=== PATIENT | male | born 1960 | race Caucasian/White ===

== ENCOUNTER 2016-12-11 21:55 | Emergency (ER) | payer SELFPAY ==
[~2016-12-11] VITALS: Ht 177.8 cm; Wt 65.8 kg
[2016-12-11 22:05] VITALS: BP 143/86
== END 2016-12-11 23:47 | disposition left against medical advice (07) ==
LOC: ER 22:01
DX: N50.819 Testicular pain, unspecified (principal); N50.89 Other specified disorders of the male genital organs; Z53.21 Procedure and treatment not carried out due to patient leaving prior to being seen by health care provider

== ENCOUNTER 2016-12-12 08:45 | Emergency (ER) | payer SELFPAY ==
[~2016-12-12] VITALS: Ht 177.8 cm; Wt 65.8 kg
[2016-12-12 09:30] VITALS: BP 133/77
[2016-12-12] MEDS ORDERED: cefTRIAXone SODIUM 250 MG VL IM ONE (10:30)
[2016-12-12 10:53] LABS: Urine Bilirubin Negative (Negative); Urine Blood TRACE /uL (Negative); Urine Color Yellow (Yellow); Urine Glucose Normal (Normal); Urine Hyaline Cast FEW /lpf (0 - 2); Urine Ketone Negative (Negative); Urine Mucus FEW (None Seen); Urine Nitrite Negative (Negative); Urine RBC 7 /hpf (0 - 3)
== END 2016-12-12 12:38 | disposition home or self-care (01) ==
LOC: ER 08:45
DX: N45.2 Orchitis (principal); N39.0 Urinary tract infection, site not specified; F17.210 Nicotine dependence, cigarettes, uncomplicated
CPT/HCPCS: 76870; 81001; 96372; 99285; J0696

== ENCOUNTER 2020-03-30 16:39 | Emergency (ER) | payer MEDICAID ==
[~2020-03-30] VITALS: Ht 177.8 cm; Wt 68.0 kg
[2020-03-30 17:20] VITALS: BP 147/89
== END 2020-03-30 18:25 | disposition home or self-care (01) ==
LOC: ER 16:39
DX: S40.862A Insect bite (nonvenomous) of left upper arm, initial encounter (principal); S40.861A Insect bite (nonvenomous) of right upper arm, initial encounter; S80.862A Insect bite (nonvenomous), left lower leg, initial encounter; S80.861A Insect bite (nonvenomous), right lower leg, initial encounter; B86 Scabies; F17.210 Nicotine dependence, cigarettes, uncomplicated; W57.XXXA Bitten or stung by nonvenomous insect and other nonvenomous arthropods, initial encounter; Y93.89 Activity, other specified; Y92.89 Other specified places as the place of occurrence of the external cause; Y99.8 Other external cause status

== ENCOUNTER 2022-12-12 09:01 | Inpatient (IN) | payer MEDICAID ==
[~2022-12-12] VITALS: Ht 177.8 cm; Wt 70.8 kg
[2022-12-12] MEDS ORDERED: FUROSEMIDE 40 MG/4 ML VIAL IV ONE ×2 (09:30→11:45)
[2022-12-12 10:22] LABS: Basophils # (auto) 0.1 10 ^3/uL (0-0.2); Eosinophils # (auto) 0.1 10 ^3/uL (0-0.8); Eosinophils % (auto) 1.7 % (0.0-7.0); Hematocrit 44.6 % (41.0-53.0); Hemoglobin 15.1 g/dL (13.5-17.5); Lymphocytes # (auto) 1.3 10 ^3/uL (0.4-5.4); Lymphocytes % (auto) 22.1 % (10.0-50.0); Mean Corpuscular Hemoglobin 33.9 pg (28.0-32.0); Mean Corpuscular Hgb Conc. 33.9 g/dL (32.0-36.0); Mean Corpuscular Volume 100.3 fL (80.0-100.0); Monocytes # (auto) 0.6 10 ^3/uL (0-1.3); Monocytes % (auto) 9.3 % (0.0-12.0); Neutrophils # (auto) 3.9 10 ^3/uL (1.6-8.6); Neutrophils % (auto) 65.9 % (37.0-80.0); Red Blood Cells 4.45 10^6/uL (4.5-5.90); Red Cell Distribution Width 13.5 % (11.8-14.3)
[2022-12-12 10:38] LABS: Albumin 3.6 g/dL (3.4-5.0); Calcium 8.7 mg/dL (8.5-10.1); Magnesium 2.3 mg/dL (1.6-2.6); Potassium 3.9 mmol/L (3.5-5.1)
[2022-12-12 10:40] LABS: BUN/Creatinine Ratio 15.4 (10.0-20.0)
[2022-12-12 10:43] LABS: Bilirubin, Total 1.6 mg/dL (0.2-1.0)
[2022-12-12] MEDS ORDERED: MORPHINE SULFATE INJ 2 MG/ml SYRG IV PRN (11:45)
[2022-12-12] MEDS ORDERED: HYDROcodone-ACET 5/325MG TAB PO PRN (11:45)
[2022-12-12] MEDS ORDERED: ONDANSETRON HCL 4 MG/2 ML VIAL IV PRN (11:45)
[2022-12-12] MEDS ORDERED: METOPROLOL SUCCINATE XL 50 MG TAB PO SCH (11:45)
[2022-12-12] MEDS ORDERED: NITROGLYCERIN 0.4 MG SL TAB SL PRN (11:45)
[2022-12-12] MEDS ORDERED: SPIRONOLACTONE 25 MG TAB PO ONE (11:45)
[2022-12-12] MEDS ORDERED: ACETAMINOPHEN 500 MG TAB PO PRN (13:45)
[2022-12-12 14:39] VITALS: BP 149/95; PULSE 117; RESP 24; O2SAT 96
[2022-12-12 15:28] LABS: INR 1.19 (0.9-1.15); Prothrombin Time 12.4 sec (9.3-11.8)
[2022-12-12] MEDS ORDERED: hydrALAZINE HCL 20 MG/ML VL IV PRN (17:00)
[2022-12-12] MEDS ORDERED: FUROSEMIDE 20 MG/2 ML VIAL IV SCH (18:00)
[2022-12-12] MEDS ORDERED: POTASSIUM CHL 10 Meq TABLET PO SCH (22:00)
[2022-12-13] MEDS ORDERED: SPIRONOLACTONE 25 MG TAB PO SCH (10:00)
== END 2022-12-12 19:42 | disposition left against medical advice (07) | DRG 194 ==
LOC: ER 09:01 → TELE 11:58
PROVIDERS: ADMIT Internal Medicine; ATTEND Internal Medicine
DX: I11.0 Hypertensive heart disease with heart failure (principal); J96.00 Acute respiratory failure, unspecified whether with hypoxia or hypercapnia; B20 Human immunodeficiency virus [HIV] disease; I50.43 Acute on chronic combined systolic (congestive) and diastolic (congestive) heart failure; F17.210 Nicotine dependence, cigarettes, uncomplicated; E80.6 Other disorders of bilirubin metabolism; I87.8 Other specified disorders of veins; R73.9 Hyperglycemia, unspecified; I42.9 Cardiomyopathy, unspecified; K76.1 Chronic passive congestion of liver; M79.89 Other specified soft tissue disorders
CPT/HCPCS: 36415; 71046; 80053; 83605; 83735; 83880; 84132; 84484; 85025; 85610; 87040; 93005; 96374; G0378

== ENCOUNTER 2022-12-29 10:38 | Inpatient (IN) | payer MEDICAID ==
[2022-12-29] VITALS (8 sets, daily range): BP systolic 116–121; BP diastolic 75–93; PULSE 92–117; RESP 18–27; TEMP 97.6–98.1; O2SAT 94–100
[~2022-12-29] VITALS: Ht 170.2 cm; Wt 65.7 kg
[2022-12-29 11:08] LABS: Basophils # (auto) 0 10 ^3/uL (0-0.2); Basophils % (auto) 0.8 % (0.0-2.0); Eosinophils # (auto) 0.1 10 ^3/uL (0-0.8); Eosinophils % (auto) 1.2 % (0.0-7.0); Hematocrit 45.2 % (41.0-53.0); Hemoglobin 15.2 g/dL (13.5-17.5); Lymphocytes # (auto) 1.5 10 ^3/uL (0.4-5.4); Lymphocytes % (auto) 26.3 % (10.0-50.0); Mean Corpuscular Hemoglobin 33.9 pg (28.0-32.0); Mean Corpuscular Hgb Conc. 33.8 g/dL (32.0-36.0); Mean Corpuscular Volume 100.3 fL (80.0-100.0); Monocytes # (auto) 0.6 10 ^3/uL (0-1.3); Neutrophils # (auto) 3.4 10 ^3/uL (1.6-8.6); Neutrophils % (auto) 60.7 % (37.0-80.0); Nucleated Red Blood Cells % 0.1 %; Red Cell Distribution Width 13.9 % (11.8-14.3); White Blood Cell 5.5 10^3/uL (4.4-10.8)
[2022-12-29] MEDS ORDERED: FUROSEMIDE 40 MG/4 ML VIAL IV ONE (11:30)
[2022-12-29 11:47] LABS: Alanine Aminotransferase 27 U/L (7-40); Alkaline Phosphatase 182 U/L (46-116); Anion Gap 6.6 (5-15); Aspartate Aminotransferase 25 U/L (13-40); BUN/Creatinine Ratio 19.6 (10.0-20.0); Bilirubin, Total 2.2 mg/dL (0.2-1.0); Blood Urea Nitrogen 21 mg/dL (9-23); Calcium 9.2 mg/dL (8.7-10.4); Carbon Dioxide 24.4 mmol/L (20-30); Chloride 109 mmol/L (98-107); Glucose 118 mg/dL (74-106); Sodium 140 mmol/L (136-145); Total Protein 7.7 g/dL (5.7-8.2)
[2022-12-29] MEDS ORDERED: IOHEXOL 350 MG/ML 100ML IJ ONE ×2 (12:56→14:05)
[2022-12-29] MEDS ORDERED: BICT1TAB PO (13:16)
[2022-12-29 14:32] LABS: Triglycerides 124 mg/dL (< 150)
[2022-12-29 14:33] LABS: LDL Cholesterol 57 mg/dL (< 100)
[2022-12-29 14:34] LABS: Cholesterol 105 mg/dL (< 200); HDL Cholesterol 33 mg/dL (40-59)
[2022-12-29] MEDS ORDERED: HEPARIN SODIUM (PORCINE) 5000 UNITS/ML 1ML VIAL SC ONE (16:00)
[2022-12-29] MEDS ORDERED: HEPARIN DRIP/D5W 100UNITS/ML 250 ML IV SCH ×2 (16:00→16:45)
[2022-12-29] MEDS ORDERED: HEPARIN SODIUM (PORCINE) 5000 UNITS/ML 1ML VIAL IV ONE (17:00)
[2022-12-29 17:19] LABS: INR 1.17 (0.9-1.15); Prothrombin Time 12.2 sec (9.3-11.8)
[2022-12-29 18:10] LABS: Urine Bacteria NONE SEEN /hpf (None Seen); Urine Blood Negative /uL (Negative); Urine Clarity Clear (Clear); Urine Color Straw (Yellow); Urine Protein, UAD Negative (Negative); Urine Specific Gravity 1.011 (1.001-1.035); Urine Urobilinogen Normal (Negative); Urine WBC <1 /hpf (0 - 3)
[2022-12-29] MEDS: ALBUTEROL SULF 2.5 MG/0.5ML(0.5%) NEB SOLN NEB PRN (23:40)
[2022-12-30] VITALS (12 sets, daily range): BP systolic 114–132; BP diastolic 84–93; PULSE 59–116; RESP 15–22; TEMP 97.3–98; O2SAT 92–98
[2022-12-30 02:41] LABS: INR 1.26 (0.9-1.15)
[2022-12-30 06:48] LABS: Basophils # (auto) 0.1 10 ^3/uL (0-0.2); Basophils % (auto) 2.5 % (0.0-2.0); Eosinophils # (auto) 0.1 10 ^3/uL (0-0.8); Eosinophils % (auto) 1.4 % (0.0-7.0); Hematocrit 44.4 % (41.0-53.0); Hemoglobin 14.9 g/dL (13.5-17.5); Lymphocytes # (auto) 1.2 10 ^3/uL (0.4-5.4); Lymphocytes % (auto) 21.1 % (10.0-50.0); Mean Corpuscular Hemoglobin 33.8 pg (28.0-32.0); Mean Corpuscular Hgb Conc. 33.6 g/dL (32.0-36.0); Mean Corpuscular Volume 100.8 fL (80.0-100.0); Monocytes # (auto) 0.6 10 ^3/uL (0-1.3); Monocytes % (auto) 11.1 % (0.0-12.0); Neutrophils # (auto) 3.6 10 ^3/uL (1.6-8.6); Neutrophils % (auto) 63.9 % (37.0-80.0); Nucleated Red Blood Cells % 0.2 %; Red Blood Cells 4.41 10^6/uL (4.5-5.90); Red Cell Distribution Width 13.6 % (11.8-14.3); White Blood Cell 5.6 10^3/uL (4.4-10.8)
[2022-12-30 07:03] LABS: Alanine Aminotransferase 19 U/L (7-40); Albumin 3.7 g/dL (3.2-4.8); Alkaline Phosphatase 154 U/L (46-116); Aspartate Aminotransferase 23 U/L (13-40); BUN/Creatinine Ratio 14.7 (10.0-20.0); Bilirubin, Total 2.4 mg/dL (0.2-1.0); Blood Urea Nitrogen 17 mg/dL (9-23); Calcium 9.2 mg/dL (8.7-10.4); Chloride 104 mmol/L (98-107); Glucose 116 mg/dL (74-106); Potassium 3.7 mmol/L (3.5-5.1); Sodium 139 mmol/L (136-145); Total Protein 7.3 g/dL (5.7-8.2)
[2022-12-30] MEDS ORDERED: ENOXAPARIN SOD 40 MG/0.4 ML SYRINGE SC SCH (10:00)
[2022-12-30] MEDS: HEPARIN DRIP/D5W 100UNITS/ML 250 ML IV SCH (11:15)
[2022-12-30] MEDS: ACETAMINOPHEN 325 MG TAB PO PRN (21:32)
[2022-12-30] MEDS: ALBUTEROL SULF 2.5 MG/0.5ML(0.5%) NEB SOLN NEB PRN (22:22)
[2022-12-31] VITALS (10 sets, daily range): BP systolic 96–120; BP diastolic 62–89; PULSE 81–114; RESP 15–20; TEMP 97.8–98.4; O2SAT 94–98
[2022-12-31 00:56] LABS: INR 1.25 (0.9-1.15); Prothrombin Time 12.9 sec (9.3-11.8)
[2022-12-31] MEDS ORDERED: MELATONIN 5 MG TAB PO ONE (02:00)
[2022-12-31] MEDS: HEPARIN DRIP/D5W 100UNITS/ML 250 ML IV SCH ×2 (03:10→22:57)
[2022-12-31 06:55] LABS: INR 1.15 (0.9-1.15)
[2022-12-31] MEDS ORDERED: HEPARIN DRIP/D5W 100UNITS/ML 250 ML IV SCH ×2 (08:45→16:30)
[2022-12-31] MEDS ORDERED: METOPROLOL SUCCINATE XL 50 MG TAB PO SCH (10:15)
[2022-12-31] MEDS: FUROSEMIDE 40 MG/4 ML VIAL IV SCH ×2 (10:37→17:50)
[2022-12-31] MEDS ORDERED: APIX5TAB PO ×2 (11:57)
[2022-12-31] MEDS ORDERED: SACU1TAB PO (11:57)
[2022-12-31] MEDS ORDERED: LORazepam 2MG/ML-1ML VIAL IV ONE (16:15)
[2022-12-31 16:51] LABS: Basophils # (auto) 0 10 ^3/uL (0-0.2); Basophils % (auto) 0.7 % (0.0-2.0); Eosinophils # (auto) 0.1 10 ^3/uL (0-0.8); Eosinophils % (auto) 1.2 % (0.0-7.0); Hematocrit 44.7 % (41.0-53.0); Hemoglobin 15.1 g/dL (13.5-17.5); Lymphocytes % (auto) 20.1 % (10.0-50.0); Mean Corpuscular Hemoglobin 33.8 pg (28.0-32.0); Mean Corpuscular Hgb Conc. 33.7 g/dL (32.0-36.0); Mean Corpuscular Volume 100.3 fL (80.0-100.0); Monocytes # (auto) 0.5 10 ^3/uL (0-1.3); Neutrophils # (auto) 3.5 10 ^3/uL (1.6-8.6); Nucleated Red Blood Cells % 0.1 %; Red Blood Cells 4.45 10^6/uL (4.5-5.90); Red Cell Distribution Width 13.9 % (11.8-14.3); White Blood Cell 5.2 10^3/uL (4.4-10.8)
[2022-12-31 17:09] LABS: INR 1.21 (0.9-1.15); Partial Thromboplastin Time 27.5 SEC (24.5-34.5); Prothrombin Time 12.5 sec (9.3-11.8)
[2022-12-31 21:12] LABS: INR 1.23 (0.9-1.15); Partial Thromboplastin Time 33.9 SEC (24.5-34.5); Prothrombin Time 12.7 sec (9.3-11.8)
[2022-12-31] MEDS: SACUBITRIL-VALSARTAN 24mg/26mg TAB PO SCH (21:56)
[2022-12-31] MEDS: ATORVASTATIN 20 MG TAB PO SCH (21:56)
[2022-12-31] MEDS: MELATONIN 5 MG TAB PO SCH (22:00)
[2022-12-31] MEDS ORDERED: APIXABAN 5 MG TAB PO SCH (22:00)
[2022-12-31] MEDS ORDERED: HEPARIN SODIUM (PORCINE) 5000 UNITS/ML 1ML VIAL IV SCH (22:45)
[2023-01-01] VITALS (23 sets, daily range): BP systolic 88–114; BP diastolic 57–80; PULSE 76–106; RESP 12–20; TEMP 97.1–98.7; O2SAT 87–100
[2023-01-01 03:41] LABS: INR 1.27 (0.9-1.15); Prothrombin Time 13.1 sec (9.3-11.8)
[2023-01-01 03:47] LABS: Partial Thromboplastin Time 128.9 SEC (24.5-34.5)
[2023-01-01] MEDS ORDERED: HEPARIN DRIP/D5W 100UNITS/ML 250 ML IV SCH (04:46)
[2023-01-01] MEDS: HEPARIN DRIP/D5W 100UNITS/ML 250 ML IV SCH ×3 (04:46→20:25)
[2023-01-01] MEDS: FUROSEMIDE 40 MG/4 ML VIAL IV SCH (05:44)
[2023-01-01 06:19] LABS: INR 1.23 (0.9-1.15); Partial Thromboplastin Time 49.5 SEC (24.5-34.5); Prothrombin Time 12.7 sec (9.3-11.8)
[2023-01-01 07:07] LABS: Alanine Aminotransferase 15 U/L (7-40); Albumin 3.3 g/dL (3.2-4.8); Alkaline Phosphatase 126 U/L (46-116); Anion Gap 3.5 (5-15); Aspartate Aminotransferase 21 U/L (13-40); BUN/Creatinine Ratio 14.4 (10.0-20.0); Blood Urea Nitrogen 17 mg/dL (9-23); Calcium 8.6 mg/dL (8.7-10.4); Carbon Dioxide 31.5 mmol/L (20-30); Chloride 104 mmol/L (98-107); Glucose 104 mg/dL (74-106); Magnesium 2.1 mg/dL (1.6-2.6); Potassium 3.8 mmol/L (3.5-5.1); Sodium 139 mmol/L (136-145)
[2023-01-01 07:08] LABS: Bilirubin, Total 2.1 mg/dL (0.2-1.0); Total Protein 6.5 g/dL (5.7-8.2)
[2023-01-01] MEDS: EMPAGLIFLOZIN 10 MG TAB PO SCH (07:10)
[2023-01-01 07:22] LABS: Basophils # (auto) 0 10 ^3/uL (0-0.2); Basophils % (auto) 0.9 % (0.0-2.0); Eosinophils # (auto) 0.1 10 ^3/uL (0-0.8); Eosinophils % (auto) 2.7 % (0.0-7.0); Hematocrit 43.3 % (41.0-53.0); Hemoglobin 14.8 g/dL (13.5-17.5); Lymphocytes # (auto) 0.9 10 ^3/uL (0.4-5.4); Lymphocytes % (auto) 19.6 % (10.0-50.0); Mean Corpuscular Hemoglobin 33.9 pg (28.0-32.0); Mean Corpuscular Volume 99.7 fL (80.0-100.0); Monocytes # (auto) 0.5 10 ^3/uL (0-1.3); Neutrophils # (auto) 3.1 10 ^3/uL (1.6-8.6); Neutrophils % (auto) 66.8 % (37.0-80.0); Nucleated Red Blood Cells % 0.1 %; Red Blood Cells 4.35 10^6/uL (4.5-5.90); Red Cell Distribution Width 13.4 % (11.8-14.3); White Blood Cell 4.6 10^3/uL (4.4-10.8)
[2023-01-01] MEDS: SACUBITRIL-VALSARTAN 24mg/26mg TAB PO SCH ×2 (10:00→22:00)
[2023-01-01] MEDS: ASPirin 81 mg TAB PO SCH ×2 (10:00→10:12)
[2023-01-01] MEDS: METOPROLOL SUCCINATE XL 50 MG TAB PO SCH (10:00)
[2023-01-01 11:23] LABS: INR 1.19 (0.9-1.15); Partial Thromboplastin Time 38.8 SEC (24.5-34.5); Prothrombin Time 12.4 sec (9.3-11.8)
[2023-01-01] MEDS ORDERED: ANGIOMAX 250 MG VIAL IV ONE (11:57)
[2023-01-01] MEDS ORDERED: VERAPAMIL 2.5MG/ML INJ 2ML VIAL IV ONE (11:58)
[2023-01-01] MEDS ORDERED: fentaNYL CITRATE 100 MCG/2 ML VL ONE (11:58)
[2023-01-01] MEDS ORDERED: HEPARIN SODIUM (PORCINE) 5000 UNITS/ML 1ML VIAL ONE (11:58)
[2023-01-01] MEDS ORDERED: MIDAZOLAM HCL 2MG/2ML 2ml VIAL (1mg/ml) ONE (11:58)
[2023-01-01] MEDS ORDERED: SODIUM CHL 0.9% 0 ML ONE (11:59)
[2023-01-01] MEDS ORDERED: LIDOCAINE 2%HCL (LOCAL ANESTH.) INJ 20ML MDV ONE (11:59)
[2023-01-01] MEDS ORDERED: IODIXANOL 320MG/ML 100ML BTL IV ONE (12:16)
[2023-01-01 21:58] LABS: INR 1.25 (0.9-1.15); Partial Thromboplastin Time 52.5 SEC (24.5-34.5); Prothrombin Time 12.9 sec (9.3-11.8)
[2023-01-01] MEDS: MELATONIN 5 MG TAB PO SCH (22:00)
[2023-01-01] MEDS: ATORVASTATIN 20 MG TAB PO SCH (22:00)
[2023-01-02] VITALS (12 sets, daily range): BP systolic 94–104; BP diastolic 64–71; PULSE 91–106; RESP 16–20; TEMP 97.5–98.4; O2SAT 94–100
[2023-01-02 04:28] LABS: Alanine Aminotransferase 13 U/L (7-40); Alkaline Phosphatase 119 U/L (46-116); Anion Gap 5.6 (5-15); BUN/Creatinine Ratio 16.9 (10.0-20.0); Blood Urea Nitrogen 20 mg/dL (9-23); Calcium 8.8 mg/dL (8.7-10.4); Carbon Dioxide 29.4 mmol/L (20-30); Chloride 104 mmol/L (98-107); Glucose 105 mg/dL (74-106); Potassium 3.6 mmol/L (3.5-5.1); Sodium 139 mmol/L (136-145)
[2023-01-02 04:29] LABS: Albumin 3.4 g/dL (3.2-4.8); Aspartate Aminotransferase 18 U/L (13-40); Basophils # (auto) 0.1 10 ^3/uL (0-0.2); Basophils % (auto) 1.1 % (0.0-2.0); Bilirubin, Total 1.8 mg/dL (0.2-1.0); Eosinophils # (auto) 0.1 10 ^3/uL (0-0.8); Eosinophils % (auto) 1.8 % (0.0-7.0); Hematocrit 43.7 % (41.0-53.0); Hemoglobin 14.8 g/dL (13.5-17.5); Lymphocytes % (auto) 21.8 % (10.0-50.0); Mean Corpuscular Hemoglobin 33.8 pg (28.0-32.0); Mean Corpuscular Hgb Conc. 33.9 g/dL (32.0-36.0); Mean Corpuscular Volume 99.7 fL (80.0-100.0); Monocytes # (auto) 0.5 10 ^3/uL (0-1.3); Monocytes % (auto) 10.5 % (0.0-12.0); Neutrophils # (auto) 3.1 10 ^3/uL (1.6-8.6); Neutrophils % (auto) 64.8 % (37.0-80.0); Nucleated Red Blood Cells % 0.1 %; Red Blood Cells 4.39 10^6/uL (4.5-5.90); Red Cell Distribution Width 13.7 % (11.8-14.3); Total Protein 6.7 g/dL (5.7-8.2); White Blood Cell 4.8 10^3/uL (4.4-10.8)
[2023-01-02 05:16] LABS: INR 1.21 (0.9-1.15); Prothrombin Time 12.5 sec (9.3-11.8)
[2023-01-02] MEDS: EMPAGLIFLOZIN 10 MG TAB PO SCH (06:34)
[2023-01-02] MEDS ORDERED: FUROSEMIDE 20 MG TAB PO SCH (09:00)
[2023-01-02] MEDS: ASPirin 81 mg TAB PO SCH (09:28)
[2023-01-02] MEDS: METOPROLOL SUCCINATE XL 50 MG TAB PO SCH (09:28)
[2023-01-02] MEDS: SACUBITRIL-VALSARTAN 24mg/26mg TAB PO SCH (09:28)
[2023-01-02] MEDS: APIXABAN 5 MG TAB PO SCH ×2 (09:34→20:33)
[2023-01-02] MEDS: ACETAMINOPHEN 325 MG TAB PO PRN (09:34)
[2023-01-02] MEDS ORDERED: FUROSEMIDE 40 MG TAB PO SCH (10:00)
[2023-01-02] MEDS ORDERED: APIXABAN 5 MG TAB PO SCH (10:00)
[2023-01-02 11:07] LABS: Amphetamine Screen, Urine Neg (NEGATIVE)
[2023-01-02 11:08] LABS: Barbiturate Scree,Urine Neg (NEGATIVE); Benzodiazephine Screen, Urine Pos (NEGATIVE); Cannabinoid Screen, Urine Pos (NEGATIVE); Cocaine Screen, Urine Neg (NEGATIVE); Opiate Scree,Urine Neg (NEGATIVE); Phencyclidine Screen, Urine Neg (NEGATIVE)
[2023-01-02] MEDS ORDERED: EMPA1TAB PO (11:44)
[2023-01-02] MEDS ORDERED: ATO40T PO (11:44)
[2023-01-02] MEDS ORDERED: FURO1TAB31 PO (11:44)
[2023-01-02] MEDS ORDERED: METO25TA36 PO (11:44)
[2023-01-02] MEDS ORDERED: APIXABAN 5 MG TAB PO ONE (11:45)
[2023-01-02] MEDS ORDERED: APIX5TAB PO (11:46)
[2023-01-07] MEDS ORDERED: APIXABAN 5 MG TAB PO SCH (22:00)
[2023-01-09] MEDS ORDERED: APIXABAN 5 MG TAB PO SCH (10:00)
== END 2023-01-02 22:10 | disposition home or self-care (01) | DRG 191 ==
LOC: ER 10:38 → OVERFLOW 13:14 → TELE-WESTW 17:29 → WEST WING 21:19 → TELE-WESTW 12-30 09:58
PROVIDERS: ADMIT Internal Medicine Geriatric Medicine; ATTEND Student in an Organized Health Care Education/Training Program
PROC: B211YZZ Fluoroscopy of Multiple Coronary Arteries using Other Contrast (ICD-10-PCS; principal; 2023-01-01)
PROC: 4A023N7 Measurement of Cardiac Sampling and Pressure, Left Heart, Percutaneous Approach (ICD-10-PCS; 2023-01-01)
DX: I25.10 Atherosclerotic heart disease of native coronary artery without angina pectoris (principal); I26.09 Other pulmonary embolism with acute cor pulmonale; I50.23 Acute on chronic systolic (congestive) heart failure; I31.39 Other pericardial effusion (noninflammatory); B20 Human immunodeficiency virus [HIV] disease; R91.1 Solitary pulmonary nodule; I11.0 Hypertensive heart disease with heart failure; I42.7 Cardiomyopathy due to drug and external agent; I42.8 Other cardiomyopathies; I47.20 Ventricular tachycardia, unspecified; F15.10 Other stimulant abuse, uncomplicated; Z83.3 Family history of diabetes mellitus; Z80.9 Family history of malignant neoplasm, unspecified; Z82.49 Family history of ischemic heart disease and other diseases of the circulatory system
CPT/HCPCS: 36415; 71045; 71275; 76705; 80053; 80061; 80307; 81001; 83036; 83735; 83880; 84443; 84484; 85025; 85379; 85610; 85730; 93306; 93458; 93925; 93970; 94640; 99152; 99291; G0378; J2250; Q9967

== ENCOUNTER → 2023-12-24 | Outpatient (CLI) | payer MEDICAID ==
[~2023-12-24] VITALS: Ht 177.8 cm; Wt 68.0 kg
[~2023-12-24] MED LIST: ADENOSINE 57 MG in GIVE UN-DILUTED 0 ML IV ONE; ADENOSINE 90 MG/30 ML INJ IV ONE; APIX5TAB PO; ATOR-507 PO; BICT1TAB PO; EMPA1TAB PO; FURO1TAB31 PO; METO25TA36 PO; SACU1TAB PO
== END | disposition home or self-care (01) ==
LOC: Rad HDHVI 13:44
PROVIDERS: ATTEND Internal Medicine Cardiovascular Disease
DX: I11.0 Hypertensive heart disease with heart failure (principal); I50.21 Acute systolic (congestive) heart failure; E78.5 Hyperlipidemia, unspecified
CPT/HCPCS: 78452; 93005; 96374; 96375; A9500; J0153

== ENCOUNTER 2024-09-05 10:12 | Emergency (ER) | payer MEDICAID ==
[~2024-09-05] VITALS: Ht 180.3 cm; Wt 62.8 kg
[~2024-09-05 10:12] MED LIST changes: -ADENOSINE 57 MG in GIVE UN-DILUTED 0 ML IV ONE; -ADENOSINE 90 MG/30 ML INJ IV ONE
--- NOTE | 2024-09-05 13:19 | ED.PDOC ---
Eye-HPI HPI Comments A 63 YEAR OLD MALE PRESENTS TO THE ED WITH COMPLAINT OF DENTAL PAIN. PATIENT STATES HE HAS BEEN EXPERIENCING DENTAL PAIN ON THE RIGHT LOWER SIDE OF HIS MOUTH THAT STARTED YESTERDAY NIGHT. PATIENT REPORTS HE WOKE UP TODAY AND HAD MILD RIGHT SIDED FACIAL SWELLING, PROMPTING HIM TO COME TO THE ED FOR EVALUATION. PATIENT DENIES FEVER, CHILLS, SHORTNESS OF BREATH, CHEST PAIN, ABDOMINAL PAIN, NAUSEA, VOMITING, HEADACHE, OR OTHER COMPLAINTS. NO OTHER SYMPTOMS OR MODIFYING FACTORS AT THIS TIME. PATIENT IS ALERT, ORIENTED X 4, AND HAS STEADY GAIT. Chief Complaint: Tooth Pain Time Seen by MD: :17 Primary Care Provider: AUDI Reviewed Notes: Nurses Notes, Medications, Allergies Allergies: Coded Allergies: NO KNOWN ALLERGIES (Unverified , 12/11/16) Home Meds Active Scripts Naproxen (Naproxen) 500 Mg Tab, 500 MG PO BID, #30 TAB Prov:BORIS BOLDEN 09/05/24 Clindamycin Hcl (Clindamycin Hcl) 300 Mg Cap, 1 CAP PO TID, #30 CAP Prov:BORIS BOLDEN 09/05/24 Apixaban Base (ELIQUIS) 5 Mg Tab, 10 MG PO BID for 7 Days, #14 TAB 10MG BID X 7 DAYS THEN 5MG PO BID FOR AT LEAST 6 MONTHS FOR DVT/PE TREATMENT Prov:JESSICA LOOMIS MD 01/02/23 Apixaban Base (ELIQUIS) 5 Mg Tab, 5 MG PO BID for 30 Days, #60 TAB Prov:JESSICA LOOMIS MD 01/02/23 Empagliflozin (Jardiance) 10 Mg Tab, 10 MG PO DAILY for 30 Days, #30 TAB Prov:JESSICA LOOMIS MD 01/02/23 Atorvastatin Calcium (Lipitor) 40 Mg Tab, 1 TAB PO DAILY, #30 TAB 5 Refills Prov:JESSICA LOOMIS MD 01/02/23 Furosemide (Lasix) 40 Mg Tab, 40 MG PO DAILY for 30 Days, #30 TAB Prov:JESSICA LOOMIS MD 01/02/23 Metoprolol Succinate (Toprol Xl) 25 Mg Tab, 1 TAB PO DAILY, #30 TAB 5 Refills Prov:JESSICA LOOMIS MD 01/02/23 Sacubitril-Valsartan (Entresto 24-26 mg) 1 Tab Tab, 1 TAB PO BID for 30 Days, #60 TAB 3 Refills Prov:BRENDA ELLIS DO 12/31/22 Reported Medications Apodbwbyerp-Czxagoesmjdrl-Lwpa (Biktarvy 50-200-25 mg) 1 Tab Tab, 1 TAB PO DAILY 12/29/22 Information Source: Patient Mode of Arrival: Ambulatory Timing: Days Duration: Since onset, Days Prehospital treatment: None Quality: Pain, Red Lids: Normal Conjunctiva: Normal Cornea: Normal Pupils: Normal EOM: Normal Fundus: Normal Anterior chamber: Normal Mouth Location: Right, Lower, Tooth/Teeth, Gums Mouth: Right, Lower, Premolar ENT Ear Exam: Normal, Normal, Normal Nose: Normal Sinuses: Normal Oropharynx: Normal Onset: Spontaneous Throat Exposed to: None History of: None Last Tetanus: Unknown Modifying factors: Nothing Associated signs and symptoms: Tooth Pain Past Medical History PAST MEDICAL HISTORY: CHF, HIV Surgical History: Hernia Repair Family History Family History: Reviewed,noncontributory to illness Social History Smoker: Cigarettes Alcohol: Denies ETOH Use Drugs: Marijuana Lives In: Home Constitutional: denies: chills, diaphoresis, fatigue, fever, malaise, sweats, weakness, others EENTM: reports: mouth pain (RIGHT LOWER DENTAL PAIN); denies: blurred vision, double vision, ear bleeding, ear discharge, ear drainage, ear pain, ear ringing, eye pain, eye redness, hearing loss, mouth swelling, nasal discharge, nose bleeding, nose congestion, nose pain, photophobia, tearing, throat pain, throat swelling, voice changes, others Respiratory: denies: cough, hemoptysis, orthopnea, SOB at rest, shortness of breath, SOB with excertion, stridor, wheezing, others Cardiovascular: denies: chest pain, dizzy spells, diaphoresis, Dyspnea on exertion, edema, irregular heart beat, left arm pain, lightheadedness, palpitations, PND, syncope, others Gastrointestinal: denies: abdomen distended, abdominal pain, blood streaked bowels, constipated, diarrhea, dysphagia, difficulty swallowing, hematemesis, melena, nausea, poor appetite, poor fluid intake, rectal bleeding, rectal pain, vomiting, others Genitourinary: denies: burning, dysuria, flank pain, frequency, hematuria, incontinence, penile discharge, penile sore, pain, testicle pain, testicle swelling, urgency, others Neurological: denies: dizziness, fainting, headache, left sided numbness, left sided weakness, numbness, paresthesia, pre-existing deficit, right sided numbness, right sided weakness, seizure, speech problems, tingling, tremors, weakness, others Musculoskeletal: denies: back pain, gout, joint pain, joint swelling, muscle p ain, muscle stiffness, neck pain, others Integumetry: denies: bruises, change in color, change in hair/nails, dryness, laceration, lesions, lumps, rash, wounds, others Allergic/Immunocompromised: denies: Difficulty Healing, Frequent Infections, Hives, Itching, others Hematologic/Lymphatic: denies: anemia, blood clots, easy bleeding, easy bruising, swollen glands, others Endocrine: denies: excessive hunger, excessive sweating, excessive thirst, excessive urination, flushing, intolerance to cold, intolerance to heat, unexplained weight gain, unexplained weight loss, others Psychiatric: denies: anxiety, bipolar disorder, depression, hopeless, panic disorder, schizophrenia, sleepless, suicidal, others All Other Systems: Reviewed and Negative Physical Exam General Appearance: No Apparent Distress, Normal HEENT: Normal ENT Inspection, PERRL/EOMI, Pharynx Normal, TMs Normal, Other (ERYTHEMA AND SWELLING ON RIGHT LOWER FRONT GUM AROUND TOOTH, DENTAL INFECTION, MILD RIGHT JAW SITE TENDERNESS AND SWELLING, NO HARDNESS AND REDNESS ON RIGHT SIDE JAW. ) Neck: Full Range of Motion, Non-Tender, Normal, Normal Inspection Respiratory: Chest Non-Tender, Lungs Clear, No Accessory Muscle Use, No Respiratory Distress, Normal Breath Sounds Cardiovascular: No Edema, No JVD, No Murmur, No Gallop, Normal Peripheral Pulses, Regular Rate/Rhythm Breast Exam: Deferred Gastrointestinal: No Organomegaly, Non Tender, No Pulsatile Mass, Normal Bowel Sounds, Soft Genitalia: Deferred Pelvic: Deferred Rectal: Deferred Extremities: No calf tenderness, Normal capillary refill, Normal inspection, Normal range of motion, Non-tender, No pedal edema Musculoskeletal : Apperance: Normal Neurologic: Alert, interventional technologist II-XII nml as Tested, No Motor Deficits, Normal Affect, Normal Mood, No Sensory Deficits Cerebellar Function: Normal Reflexes: Normal Skin: Dry, Normal Color, Warm Peripheral Pulses: 2+ carotid (R), 2+ carotid (L) Lymphatic: No Adenopathy Was a procedure done? Was a procedure done?: No EENT DIFF Eye: N/A Ear: Otitis Media, Dental, Pharyngitis, N/A Nose: N/A Mouth: Other (DENTAL PAIN, DENTAL CARIES, DENTAL INFECTION, DENTAL ABSCESS, GINGIVITIS) Sore Throat: N/A X-Ray, Labs, Meds, VS Vital Signs Date Time Temp Pulse Resp B/P (MAP) Pulse Ox O2 Delivery O2 Flow Rate FiO2 09/05/24 14:10 82 16 96 Room Air 09/05/24 14:10 98.3 82 16 109/67 (81) 96 98.3 09/05/24 10:30 99.1 86 16 145/78 (100) 98 99.1 X-Ray, Labs, Meds, VS Comment EXTERNAL MEDICAL RECORDS REVIEWED: [NONE] INDEPENDENT HISTORIANS: [NONE] SOCIAL DETERMINANTS OF HEALTH: [NONE] LABS ORDERED: NONE REVIEWED AND INTERPRETED RESULTS: NONE IMAGING ORDERED: NONE TREATMENTS ORDERED: ROCEPHIN 1 G IV, CLINDAMYCIN 600 MG IV, TORADOL 30 MG IV PROCEDURES PERFORMED: NONE CRITICAL CARE TIME: NONE I HAVE DISCUSSED THE PATIENT WITH THE ATTENDING PHYSICIAN DR. MENSAH AND HE AGREES WITH THE PATIENT'S PLAN OF CARE AND DISPOSITION. BASED ON HISTORY OF PRESENT ILLNESS, AND PHYSICAL EXAM, PATIENT WILL BE DISCHARGED HOME. DISCUSSED PLAN FOR DISCHARGE HOME WITH RX [CLINDAMYCIN AND IBUPROFEN 800 MG]. MEDICATION WARNINGS GIVEN. SHARED DECISION MAKING: PATIENT INSTRUCTED TO FOLLOW UP WITH PRIMARY CARE PROVIDER IN 1-2 DAYS FOR RE-EVALUATION OF SYMPTOMS. PATIENT VERBALIZES UNDERSTANDING TO RETURN TO ED FOR NEW OR WORSENING SYMPTOMS OR IF FOLLOW UP WITH PCP CANNOT BE OBTAINED. PATIENT FEELS COMFORTABLE GOING HOME AT THIS TIME. ALL QUESTIONS ADDRESSED AT TIME OF DISCHARGE. Time of 1ST Reevaluation: 14:30 Reevaluation 1ST: Improved Patient Education/Counseling: Diagnosis, Treatment, Need For Follow Up Family Education/Counseling: Diagnosis, Treatment, Need For Follow Up Medical Screening: No EMC Exist At This Time Departure 1 Departure Time of Disposition: 14:30 Impression: Primary Impression: Dental infection Disposition: 01 HOME / SELF CARE / HOMELESS Condition: Stable Additional Instructions: FOLLOW-UP WITH PCP AND DENTIST IN 1 TO 2 DAYS. TAKE MEDICATIONS PRESCRIBED. RETURN TO ED FOR ANY NEW OR WORSENING SYMPTOMS. e-Prescriptions Naproxen (Naproxen) 500 Mg Tab 500 MG PO BID, #30 TAB Prov: BORIS BOLDEN 09/05/24 Clindamycin Hcl (Clindamycin Hcl) 300 Mg Cap 1 CAP PO TID, #30 CAP Prov: BORIS BOLDEN 09/05/24 Discharged With: Self Critical Care Note Critical Care Time?: No Stability Stability form required: No I personally scribed for BORIS BOLDEN ([email or web address]) on 09/05/24 at 13:19. Electronically submitted by Gustavo Roberts ([email or web address]). BORIS BOLDEN September 05, 2024 13:19
[2024-09-05] MEDS: KETOROLAC TROMETH 30 MG/ML 1ML VIAL IV ONE (13:31)
[2024-09-05] MEDS: cefTRIAXone 1GM/50ML D5W 50 ML IV ONE (13:31)
[2024-09-05] MEDS: CLINDAMYCIN 600MG IV 50 ML IV ONE (13:49)
[2024-09-05] MEDS ORDERED: CLIN1CAP70 PO (13:54)
[2024-09-05] MEDS ORDERED: NAPR-746 PO (13:54)
[2024-09-05 14:10] VITALS: BP 109/67; PULSE 82; RESP 16; TEMP 98.3; O2SAT 96
== END 2024-09-05 14:23 | disposition home or self-care (01) ==
LOC: ER 10:12
DX: K04.7 Periapical abscess without sinus (principal); I50.9 Heart failure, unspecified; F17.210 Nicotine dependence, cigarettes, uncomplicated; F12.10 Cannabis abuse, uncomplicated; Z79.01 Long term (current) use of anticoagulants; Z79.624 Long term (current) use of inhibitors of nucleotide synthesis; Z79.84 Long term (current) use of oral hypoglycemic drugs; Z79.899 Other long term (current) drug therapy; Z98.890 Other specified postprocedural states
CPT/HCPCS: 96365; 96367; 96375; 99284; J0696; J1885; J3490

== ENCOUNTER 2025-04-20 13:17 | Inpatient (IN) | payer MEDICAID ==
[~2025-04-20] VITALS: Ht 177.8 cm; Wt 57.7 kg
[~2025-04-20 13:17] MED LIST changes: +CLIN1CAP70 PO; +NAPR-746 PO
[2025-04-20 15:02] LABS: Hematocrit 24.9 % (41.0-53.0); Hemoglobin 8.6 g/dL (13.5-17.5); Mean Corpuscular Hemoglobin 35.6 pg (28.0-32.0); Mean Corpuscular Volume 103.7 fL (80.0-100.0); Nucleated Red Blood Cells % 0.0 %
[2025-04-20 15:12] LABS: Sodium 140 mmol/L (136-145)
[2025-04-20 15:13] LABS: Anion Gap 14 (5-15); Calcium 9.2 mg/dL (8.7-10.4)
[2025-04-20 15:18] LABS: BUN/Creatinine Ratio 13.5 (10.0-20.0)
[2025-04-20 15:30] LABS: Carbon Dioxide 17 mmol/L (20-31); Chloride 109 mmol/L (98-107); Glucose 137 mg/dL (74-106); Potassium 5.3 mmol/L (3.5-5.1)
[2025-04-20 15:36] LABS: Blood Urea Nitrogen 98 mg/dL (9-23)
--- NOTE | 2025-04-20 15:37 | ED.PDOC ---
General HPI Comments The patient with a past medical history of congestive heart failure presents for evaluation of a one-week history of blood in the urine, atraumatic right lower back that radiates down the right lower extremity, and nausea/vomiting. The patient reports pain across the left lower back radiating down the leg, with associated stiffness at night and a sensation of leg swelling. The patient describes vomiting as dry heaves, occurring up to ten times daily, which began at the same time as the hematuria. There is abdominal pain that worsens when vomiting, described as a sensation of the stomach "boiling" when not eating. The hematuria started as dark-colored urine and has become dairy associate; the patient denies prior episodes and reports no pain or burning with urination. The patient notes urinary frequency, attributing it to chronic use of Lasix. The patient reports taking multiple medications, including Lasix and a medication previously prescribed for gastrointestinal symptoms. No history of previous dry heaving or vomiting. No history of prostate issues. No relevant family or social history discussed. Denies changes in his urine output Denies fevers chills night sweats Denies pelvic pain Denies dysuria urgency frequency Denies history of UTI Denies family history of prostate issues Denies CP/SOB Chief Complaint: Lower Extremity Time Seen by MD: 14:45 Primary Care Provider: AUDI Reviewed notes: Nurses Notes, Medications, Allergies Allergies: Coded Allergies: NO KNOWN ALLERGIES (Unverified , 12/11/16) Home Meds Active Scripts Naproxen (Naproxen) 500 Mg Tab, 500 MG PO BID, #30 TAB Prov:BORIS BOLDEN 09/05/24 Apixaban Base (ELIQUIS) 5 Mg Tab, 10 MG PO BID for 7 Days, #14 TAB 10MG BID X 7 DAYS THEN 5MG PO BID FOR AT LEAST 6 MONTHS FOR DVT/PE TREATMENT Prov:JESSICA LOOMIS MD 01/02/23 Apixaban Base (ELIQUIS) 5 Mg Tab, 5 MG PO BID for 30 Days, #60 TAB Prov:JESSICA LOOMIS MD 01/02/23 Empagliflozin (Jardiance) 10 Mg Tab, 10 MG PO DAILY for 30 Days, #30 TAB Prov:JESSICA LOOMIS MD 01/02/23 Atorvastatin Calcium (Lipitor) 40 Mg Tab, 1 TAB PO DAILY, #30 TAB 5 Refills Prov:JESSICA LOOMIS MD 01/02/23 Furosemide (Lasix) 40 Mg Tab, 40 MG PO DAILY for 30 Days, #30 TAB Prov:JESSICA LOOMIS MD 01/02/23 Metoprolol Succinate (Toprol Xl) 25 Mg Tab, 1 TAB PO DAILY, #30 TAB 5 Refills Prov:JESSICA LOOMIS MD 01/02/23 Reported Medications Ondansetron HCl (Ondansetron) 4 Mg Tab, 4 MG PO, TAB 04/21/25 Potassium Chloride (POTASSIUM CHLORIDE CR) 10 Meq Tb, 8 MEQ PO, TAB 04/21/25 Acetaminophen (Tylenol) 325 Mg Tb, 500 MG PO, TAB 04/21/25 Xkyvnmowgyu-Dtrfactgdashw-Jdzz (Biktarvy 50-200-25 mg) 1 Tab Tab, 1 TAB PO DAILY 12/29/22 Information Source: Patient Mode of Arrival: Ambulatory Severity: Moderate Timing: Days Duration: Since onset, Days Prehospital treatment: None Onset: Spontaneous Symptoms: Hematuria History of: None Location: None Penile discharge: None associated signs and symptoms: Vomiting, Hematuria Past Medical History PAST MEDICAL HISTORY: CHF, HIV Surgical History: Hernia Repair Family History Family History: Reviewed,noncontributory to illness, Unknown Social History Smoker: Cigarettes Alcohol: Denies ETOH Use Drugs: Marijuana Lives In: Home Constitutional: denies: chills, diaphoresis, fatigue, fever, malaise, sweats, weakness, others EENTM: denies: blurred vision, double vision, ear bleeding, ear discharge, ear drainage, ear pain, ear ringing, eye pain, eye redness, hearing loss, mouth pain, mouth swelling, nasal discharge, nose bleeding, nose congestion, nose pain, photophobia, tearing, throat pain, throat swelling, voice changes, others Respiratory: denies: cough, hemoptysis, orthopnea, SOB at rest, shortness of breath, SOB with excertion, stridor, wheezing, others Cardiovascular: denies: chest pain, dizzy spells, diaphoresis, Dyspnea on exertion, edema, irregular heart beat, left arm pain, lightheadedness, palpitations, PND, syncope, others Gastrointestinal: reports: vomiting; denies: abdomen distended, abdominal pain, blood streaked bowels, constipated, diarrhea, dysphagia, difficulty swallowing, hematemesis, melena, nausea, poor appetite, poor fluid intake, rectal bleeding, rectal pain, others Genitourinary: reports: hematuria; denies: burning, dysuria, flank pain, frequency, incontinence, penile discharge, penile sore, pain, testicle pain, testicle swelling, urgency, others Neurological: denies: dizziness, fainting, headache, left sided numbness, left sided weakness, numbness, paresthesia, pre-existing deficit, right sided numbness, right sided weakness, seizure, speech problems, tingling, tremors, weakness, others Musculoskeletal: reports: back pain (Radiating down left leg); denies: gout, joint pain, joint swelling, muscle pain, muscle stiffness, neck pain, others Integumetry: denies: bruises, change in color, change in hair/nails, dryness, laceration, lesions, lumps, rash, wounds, others Allergic/Immunocompromised: denies: Difficulty Healing, Frequent Infections, Hives, Itching, others Hematologic/Lymphatic: denies: anemia, blood clots, easy bleeding, easy bruising, swollen glands, others Endocrine: denies: excessive hunger, excessive sweating, excessive thirst, excessive urination, flushing, intolerance to cold, intolerance to heat, u nexplained weight gain, unexplained weight loss, others Psychiatric: denies: anxiety, bipolar disorder, depression, hopeless, panic disorder, schizophrenia, sleepless, suicidal, others All Other Systems: Reviewed and Negative Physical Exam Exam Comments Positive left straight leg raise test., able to bear weight, no tenderness to the abdomen on palpation General Appearance: No Apparent Distress, Normal HEENT: Normal ENT Inspection, Pharynx Normal, TMs Normal Neck: Full Range of Motion, Non-Tender, Normal, Normal Inspection Respiratory: Chest Non-Tender, Lungs Clear, No Accessory Muscle Use, No Respiratory Distress, Normal Breath Sounds Cardiovascular: No Edema, No JVD, No Murmur, No Gallop, Normal Peripheral Pulses, Regular Rate/Rhythm Breast Exam: Deferred Gastrointestinal: No Organomegaly, Non Tender, No Pulsatile Mass, Normal Bowel Sounds, Soft Genitalia: Deferred Pelvic: Deferred Rectal: Deferred Extremities: No calf tenderness, Normal capillary refill, Normal inspection, Normal range of motion, Non-tender, No pedal edema Musculoskeletal : Apperance: Normal Neurologic: Alert, gamma ray operator II-XII nml as Tested, No Motor Deficits, Normal Affect, Normal Mood, No Sensory Deficits Cerebellar Function: Normal Reflexes: Normal Skin: Dry, Normal Color, Warm Lymphatic: No Adenopathy Was a procedure done? Was a procedure done?: No Differential Diagnosis Kidney stone (Female): Other Kidney stone (Male): Bowel obstruction, Hepatitis, Pancreatitis, Pyelonephritis, Renal failure, Strain, Urolithiasis, Urinary tract infection X-Ray, Labs, Meds, VS Vital Signs Date Time Temp Pulse Resp B/P (MAP) Pulse Ox O2 Delivery O2 Flow Rate FiO2 04/20/25 18:22 74 14 168/90 04/20/25 18:05 73 16 99 Room Air* 0 21 04/20/25 18:00 98.3 79 18 163/89 (113) 100 98.3 04/20/25 17:52 79 16 144/97 04/20/25 17:45 168/90 04/20/25 17:32 98.3 81 18 151/88 (109) 100 98.3 04/20/25 16:27 76 04/20/25 13:18 98.0 101 15 160/75 99 98.0 Lab Test 04/20/25 16:07 04/20/25 16:06 04/20/25 14:41 Range/Units Urine Color Colorless Yellow Urine Clarity Clear Clear Urine pH 5.5 5.0-9.0 Urine Specific [place] 1.009 1.001-1.035 Urine Protein Trace H Negative Urine Ketones Negative Negative Urine Blood 3+ H Negative /uL Urine Nitrite Negative Negative Urine Bilirubin Negative Negative Urine Urobilinogen Normal Negative mg/dL Urine Leukocyte Esterase Negative Negative /uL Urine RBC 272 0 - 3 /hpf Urine Microscopic WBC 22 H 0-3 /HPF Urine Squamous Epithelial Cells None seen <5 /hpf Urine Bacteria Few H None Seen /hpf Urine Glucose 2+ H Normal mg/dL Sodium Level 141 140 136-145 mmol/L Potassium Level 5.7 *H 5.3 H 3.5-5.1 mmol/L Chloride Level 110 H 109 H 98-107 mmol/L Carbon Dioxide Level 16 L 17 L 20-31 mmol/L Anion Gap 15 14 5-15 Blood Urea Nitrogen 101 *H 98 *H 9-23 mg/dL Creatinine 7.14 H 7.24 H 0.700-1.30 mg/dL Glomerular Filtration Rate Calc 8 8 >90 mL/min BUN/Creatinine Ratio 14.1 13.5 10.0-20.0 Serum Glucose 96 137 H 74-106 mg/dL Lactic Acid Level 1.4 0.4-2.0 mmol/L Calcium Level 9.0 9.2 8.7-10.4 mg/dL Total Bilirubin < 0.2 L 0.2-1.0 mg/dL Direct Bilirubin < 0.1 <0.3 mg/dL Aspartate Amino Transferase (AST) 20 13-40 U/L Alanine Aminotransferase (ALT) 20 7-40 U/L Alkaline Phosphatase 163 H 46-116 U/L Troponin I High Sensitivity 19 </=54 ng/L B-Type Natriuretic Peptide 664.79 0-100 pg/mL Total Protein 7.6 5.7-8.2 g/dL Albumin 4.3 3.2-4.8 g/dL White Blood Count 6.4 4.4-10.8 10^3/uL Red Blood Count 2.40 L 4.5-5.90 10^6/uL Hemoglobin 8.6 L 13.5-17.5 g/dL Hematocrit 24.9 L 41.0-53.0 % Mean Corpuscular Volume 103.7 H 80.0-100.0 fL Mean Corpuscular Hemoglobin 35.6 H 28.0-32.0 pg Mean Corpuscular Hemoglobin Concent 34.3 32.0-36.0 g/dL Red Cell Distribution Width 15.3 H 11.8-14.3 % Platelet Count 323 140-450 10^3/uL Mean Platelet Volume 6.2 L 6.9-10.8 fL Neutrophils (%) (Auto) 72.1 37.0-80.0 % Lymphocytes (%) (Auto) 17.3 10.0-50.0 % Monocytes (%) (Auto) 8.3 0.0-12.0 % Eosinophils (%) (Auto) 1.3 0.0-7.0 % Basophils (%) (Auto) 1.0 0.0-2.0 % Neutrophils # (Auto) 4.6 1.6-8.6 10 ^3/uL Lymphocytes # (Auto) 1.1 0.4-5.4 10 ^3/uL Monocytes # (Auto) 0.5 0-1.3 10 ^3/uL Eosinophils # (Auto) 0.1 0-0.8 10 ^3/uL Basophils # (Auto) 0.1 0-0.2 10 ^3/uL Nucleated Red Blood Cells 0.0 % Current Medications Medications (Trade) Dose Ordered Sig/Minna Route Start Time Stop Time Status Last Admin Morphine Sulfate 4 mg ONCE ONCE IV 04/20/25 16:00 04/20/25 18:05 DC 04/20/25 17:52 Ceftriaxone Sodium 50 ml @ 100 mls/hr ONCE ONCE IV 04/20/25 17:00 04/20/25 18:05 DC 04/20/25 17:51 Ondansetron HCl (Zofran) 4 mg ONCE ONCE IV 04/20/25 17:00 04/20/25 18:05 DC 04/20/25 17:51 Furosemide (Lasix Injection) 40 mg ONCE ONCE IV 04/20/25 17:45 04/20/25 18:05 DC 04/20/25 17:45 X-Ray, Labs, Meds, VS Comment Patient arrives alert and oriented, ABC's intact, afebrile, vital signs stable, saturating well in room air The patient with a history of congestive heart failure presents with acute onset hematuria, nausea/vomiting, and back pain with radicular features. Valles findings include positive left straight leg raise and hematuria without dysuria or urinary pain. The clinical picture raises concern for possible urinary tract pathology, nephrolithiasis, or other genitourinary source, as well as possible nerve impingement causing radicular pain and vomiting. Patient presents with hematuria. Differential diagnosis for hematuria is broad and includes, but is not limited to urinary tract infection, renal or kidney cancer, trauma, or adverse effect of anticoagulation. No flank pain or renal colic to suggest stone. Well appearing, no life threatening hemorrhage Labs and urinalysis have been ordered. Sodium 140, potassium 5.3, chloride 109, carbon dioxide 17, BUN 98, creatinine 7.24, serum glucose 137. WBC is 6.4, hemoglobin 8.6 by. Urinalysis shows 3+ urine, urine RBC to 72, urine WBC 22, urine glucose 2+ Calcium 9.2, lactic acid 1.4, trop 19, BNP 664 Re-ordered BMP for confirmation as pt has no hx of kidney dx. The patient received Rocephin IV with no adverse reaction for UTI EKG Ordered The patient's workup reveals that the patient needs further evaluation and/or treatment for the above medical conditions. Patient verbalized understanding of the above and is awaiting further evaluation by the admitting service. Time of 1ST Reevaluation: 15:15 Reevaluation 1ST: Unchanged Patient Education/Counseling: Diagnosis, Treatment, Prognosis Family Education/Counseling: No Family Present SEPSIS Sepsis Screen Date sepsis recognized/suspect: Apr 20, 2025 Time Sepsis recognized/suspect: 1320 Recent Procedure: No On Antibiotic Therapy: No Respiratory Rate >20: No Heart Rate >90: No Temp<36 C (96.8 F) or >38.3 C: No SBP <90 or MAP <65 mmHG: No New Acute Mental Status Change: No Is the patient on CPAP, BIPAP,: No Physician Orders Ct Ab Pel Wo Con-No Oral Or Iv (04/20/25 15:49) Electrocardigram (04/20/25 15:49) Chest Xray 1 View (04/20/25 15:49) Vital Signs Date Time Temp Pulse Resp B/P (MAP) Pulse Ox O2 Delivery O2 Flow Rate FiO2 04/20/25 18:22 74 14 168/90 04/20/25 18:05 73 16 99 Room Air* 0 21 04/20/25 18:00 98.3 79 18 163/89 (113) 100 98.3 04/20/25 17:52 79 16 144/97 04/20/25 17:45 168/90 04/20/25 17:32 98.3 81 18 151/88 (109) 100 98.3 04/20/25 16:27 76 04/20/25 13:18 98.0 101 15 160/75 99 98.0 Laboratory Tests Test 04/20/25 14:41 04/20/25 16:06 White Blood Count 6.4 10^3/uL (4.4-10.8) Lactic Acid Level 1.4 mmol/L (0.4-2.0) Departure 1 Departure Time of Disposition: 16:42 Impression: Primary Impression: Renal failure Additional Impressions: ZHEN (acute kidney injury) Hyperkalemia Hematuria Lumbar radiculopathy Anemia UTI (urinary tract infection) Hydroureteronephrosis Disposition: ADMITTED INPATIENT Condition: Critical Critical Care Note Critical Care Time?: No Stability Stability form required: No Heart Score Heart Score: Heart Score Response (Comments) Value History N/A 0 EKG N/A 0 Age N/A 0 Risk Factors N/A 0 Troponin N/A 0 Total 0 I personally scribed for FLORA PANIAGUA NP ([email or web address]) on 04/20/25 at 15:37. Electronically submitted by Trevin Fontenot ([email or web address]). FLORA PANIAGUA NP Apr 20, 2025 15:37
[2025-04-20 16:28] LABS: Urine Protein, UAD TRACE (Negative)
[2025-04-20 16:49] LABS: Alanine Aminotransferase 20 U/L (7-40); Albumin 4.3 g/dL (3.2-4.8); Anion Gap 15 (5-15); BUN/Creatinine Ratio 14.1 (10.0-20.0); Calcium 9.0 mg/dL (8.7-10.4); Glucose 96 mg/dL (74-106); Sodium 141 mmol/L (136-145); Total Protein 7.6 g/dL (5.7-8.2)
--- NOTE | 2025-04-20 16:49 | DVH ---
EXAM: CT CT AB PEL WO CON-NO ORAL OR IV HISTORY: Hematuria COMPARISON STUDY: None TECHNIQUE: Multidetector CT of the abdomen and pelvis was performed from lung bases to pubic symphysis. Imaging was performed without IV contrast. Axial, coronal, and sagittal multiplanar reformats were obtained from the axial data set by the technologist. RADIATION DOSE: CTDI vol 5.5 mGy. DLP 311.9 mGy.cm FINDINGS: Limited evaluation of the solid organs in the absence of IV contrast. Lungs: The lung bases are clear. Liver: Unremarkable. Spleen: Unremarkable. Pancreas: Unremarkable. Gallbladder: Unremarkable. Adrenals: Unremarkable Kidneys: Severe bilateral hydroureteronephrosis. No obstructing calculus. Pelvic Viscera: Abnormal wall thickening of the right posterior aspect of the urinary bladder. Vasculature: Atherosclerotic aortoiliac calcification. Retroperitoneum: Probable retroperitoneal adenopathy, suboptimally assessed in the absence of IV contrast. Bowel: No bowel obstruction. Musculoskeletal: Multifocal sclerotic lesions most pronounced within the L3 and L4 vertebral bodies. Soft tissues: Unremarkable IMPRESSION: 1. Abnormal wall thickening of the right posterior aspect of the urinary bladder, neoplasm cannot be excluded. Correlation with cystoscopy is suggested. 2. Severe bilateral hydroureteronephrosis. 3. Multifocal sclerotic osseous lesions suspicious for metastatic disease in the appropriate clinical setting. 4. Additional findings as detailed.
--- NOTE | 2025-04-20 17:19 | DVH ---
CHEST RADIOGRAPH Indication: r/o pna Technique: Single frontal view of the chest was obtained COMPARISON: CT CT ANGIO CHEST CONTRAST on DOS: 12/29/22, XY CHEST PORTABLE on DOS: 12/29/22, XY CHEST TWO VIEWS ROUTINE on DOS: 12/12/22 FINDINGS: Lines and Tubes: None Lungs: Increased interstital prominence. This may represent pulmonary vascular congestion and/or viral pneumonia. Pleura: No effusion.No pneumothorax. Cardiomediastinal contours: Unremarkable Bones: Unremarkable IMPRESSION: Increased interstitial prominence. This may represent pulmonary vascular congestion and/or viral pneumonia.
[2025-04-20 17:28] LABS: Alkaline Phosphatase 163 U/L (46-116); Bilirubin, Direct < 0.1 mg/dL (<0.3); Bilirubin, Total < 0.2 mg/dL (0.2-1.0); Carbon Dioxide 16 mmol/L (20-31); Chloride 110 mmol/L (98-107)
[2025-04-20 17:35] LABS: Blood Urea Nitrogen 101 mg/dL (9-23); Potassium 5.7 mmol/L (3.5-5.1)
[2025-04-20] MEDS: FUROSEMIDE 40 MG/4 ML VIAL IV ONE (17:45)
[2025-04-20] MEDS: ONDANSETRON HCL 4 MG/2 ML VIAL IV ONE (17:51)
[2025-04-20] MEDS: MORPHINE SULFATE 4 MG/ML SYR/VIAL IV ONE (17:52)
[2025-04-20 18:05] VITALS: PULSE 73; RESP 16; O2SAT 99
[2025-04-20] MEDS ORDERED: MORPHINE SULFATE INJ 2 MG/ml SYRG IV PRN (20:00)
[2025-04-20] MEDS ORDERED: NITROGLYCERIN 0.4 MG SL TAB SL PRN (20:00)
[2025-04-20] MEDS: BACLOFEN 10 MG TAB PO ONE (21:15)
[2025-04-20] MEDS: SODIUM BICARB 8.4% 50Meq/50ml SYR Vial IV ONE (21:30)
[2025-04-20] MEDS: DEXTROSE (50%) 50ML SYRG IV ONE (21:30)
[2025-04-20] MEDS: InsuLIN REG 1unit/0.01ml Soln (100units/ml) IV ONE (21:30)
[2025-04-20] MEDS: SODIUM ZIRCONIUM CYCL 10 GM PAK PO ONE (21:30)
[2025-04-20] MEDS: CALCIUM GLUC 1,000mg/50ml-NS 50 ML IV ONE (21:30)
--- NOTE | 2025-04-20 21:52 | DVHHP2 ---
History of Present Illness Reason for Visit: Hematuria History of Present Illness 64-year-old male presents for evaluation of hematuria. Patient endorses a two week history of noticing bloody urine. He states that initially it was david blood male as turn into a pinkish color. He reports being on Eliquis due to a pulmonary embolism diagnosed last year. Denies any recent weight loss. No chest pain or shortness for breath. He does have a history of congestive heart failure and possible renal failure as he states awaiting a referral for Nephrology. Past Medical History Diabetes mellitus, hypertension, HIV,? Renal failure Past Surgical History Hernia repair Family History Noncontributory Smoke: <1 pack per day ALCOHOL: none Drugs: Marijuana Lives: with Family Review of Systems Review of Systems Review of systems are currently negative otherwise addressed in HPI. Allergies: Coded Allergies: NO KNOWN ALLERGIES (Unverified , 12/11/16) Medications Current Medications Medications Dose Ordered Sig/Minna Route Start Time Stop Time Status Last Admin Dose Admin Nitroglycerin 0.4 mg Q5MINP PRN SL 04/20/25 20:00 Morphine Sulfate 2 mg Q30M PRN IV 04/20/25 20:00 Atorvastatin Calcium 40 mg HS PO 04/20/25 22:00 UNV Empaglifozin 10 mg DAILY PO 04/21/25 10:00 UNV Furosemide 40 mg DAILY PO 04/21/25 10:00 UNV Metoprolol Succinate 25 mg DAILY PO 04/21/25 10:00 UNV Patient Own Medication 1 tab DAILY PO 04/21/25 10:00 UNV Acetaminophen/ Hydrocodone Bitart 1 tab Q4HP PRN PO 04/20/25 21:15 UNV Ondansetron HCl 4 mg Q4HP PRN IV 04/20/25 21:15 UNV Acetaminophen 650 mg Q6HP PRN PO 04/20/25 21:15 UNV Sodium Bicarbonate 650 mg BID PO 04/20/25 22:00 UNV Exam Vital Signs Vital Signs Date Time Temp Pulse Resp B/P (MAP) Pulse Ox O2 Delivery O2 Flow Rate FiO2 04/20/25 20:05 97.6 73 16 163/89 (113) 99 97.6 04/20/25 18:05 Room Air* 0 21 Exam Gen: 64-year-old male in mild distress Skin: Warm, dry, normal color and texture, no rash. HEENT: Normocephalic atraumatic, mucous membranes moist and pink. Neck: Cervical and supraclavicular nodes normal without enlargement, trachea is midline, thyroid gland is normal without masses. Pulmonary: Clear to auscultation and percussion bilaterally. Cardiac: Regular rate and rhythm. No murmur Abdomen: Soft, nontender, nondistended, bowel sounds present all 4 quadrants, no guarding, no rigidity, no organomegaly. Extremities: No cyanosis, clubbing, no edema Neuro: Cranial nerves II through XII grossly intact, normal affect and speech, no focal motor deficits. Labs/Xrays ORDERING PHYSICIAN: FLORA PANIAGUA MANAGER PHYSICAL PROCEDURE(s): ABPL - CT AB PEL WO CON-NO ORAL OR IV REASON: Hematuria ORDER NUMBER(s): [id number], ACCESSION NUMBER(s): [id number] EXAM: CT CT AB PEL WO CON-NO ORAL OR IV HISTORY: Hematuria COMPARISON STUDY: None TECHNIQUE: Multidetector CT of the abdomen and pelvis was performed from lung bases to pubic symphysis. Imaging was performed without IV contrast. Axial, coronal, and sagittal multiplanar reformats were obtained from the axial data set by the technologist. RADIATION DOSE: CTDI vol 5.5 mGy. DLP 311.9 mGy.cm FINDINGS: Limited evaluation of the solid organs in the absence of IV contrast. Lungs: The lung bases are clear. Liver: Unremarkable. Spleen: Unremarkable. Pancreas: Unremarkable. Gallbladder: Unremarkable. Adrenals: Unremarkable Kidneys: Severe bilateral hydroureteronephrosis. No obstructing calculus. Pelvic Viscera: Abnormal wall thickening of the right posterior aspect of the urinary bladder. Vasculature: Atherosclerotic aortoiliac calcification. Retroperitoneum: Probable retroperitoneal adenopathy, suboptimally assessed in the absence of IV contrast. Bowel: No bowel obstruction. Musculoskeletal: Multifocal sclerotic lesions most pronounced within the L3 and L4 vertebral bodies. Soft tissues: Unremarkable IMPRESSION: 1. Abnormal wall thickening of the right posterior aspect of the urinary bladder, neoplasm cannot be excluded. Correlation with cystoscopy is suggested. 2. Severe bilateral hydroureteronephrosis. 3. Multifocal sclerotic osseous lesions suspicious for metastatic disease in the appropriate clinical setting. 4. Additional findings as detailed. RING PHYSICIAN: FLORA PANIAGUA NP PROCEDURE(s): CXR1 - CHEST XRAY 1 VIEW REASON: r/o pna ORDER NUMBER(s): [id number], ACCESSION NUMBER(s): [id number] CHEST RADIOGRAPH Indication: r/o pna Technique: Single frontal view of the chest was obtained COMPARISON: CT CT ANGIO CHEST CONTRAST on DOS: 12/29/22, XY CHEST PORTABLE on DOS: 12/29/22, XY CHEST TWO VIEWS ROUTINE on DOS: 12/12/22 FINDINGS: Lines and Tubes: None Lungs: Increased interstital prominence. This may represent pulmonary vascular congestion and/or viral pneumonia. Pleura: No effusion.No pneumothorax. Cardiomediastinal contours: Unremarkable Bones: Unremarkable IMPRESSION: Increased interstitial prominence. This may represent pulmonary vascular congestion and/or viral pneumonia. Labs Test 04/20/25 16:07 04/20/25 16:06 04/20/25 14:41 Range/Units Urine Color Colorless Yellow Urine Clarity Clear Clear Urine pH 5.5 5.0-9.0 Urine Specific [place] 1.009 1.001-1.035 Urine Protein Trace H Negative Urine Ketones Negative Negative Urine Blood 3+ H Negative /uL Urine Nitrite Negative Negative Urine Bilirubin Negative Negative Urine Urobilinogen Normal Negative mg/dL Urine Leukocyte Esterase Negative Negative /uL Urine RBC 272 0 - 3 /hpf Urine Microscopic WBC 22 H 0-3 /HPF Urine Squamous Epithelial Cells None seen <5 /hpf Urine Bacteria Few H None Seen /hpf Urine Glucose 2+ H Normal mg/dL Sodium Level 141 136-145 mmol/L Potassium Level 5.7 *H 3.5-5.1 mmol/L Chloride Level 110 H 98-107 mmol/L Carbon Dioxide Level 16 L 20-31 mmol/L Anion Gap 15 5-15 Blood Urea Nitrogen 101 *H 9-23 mg/dL Creatinine 7.14 H 0.700-1.30 mg/dL Glomerular Filtration Rate Calc 8 >90 mL/min BUN/Creatinine Ratio 14.1 10.0-20.0 Serum Glucose 96 74-106 mg/dL Lactic Acid Level 1.4 0.4-2.0 mmol/L Calcium Level 9.0 8.7-10.4 mg/dL Total Bilirubin < 0.2 L 0.2-1.0 mg/dL Direct Bilirubin < 0.1 <0.3 mg/dL Aspartate Amino Transferase (AST) 20 13-40 U/L Alanine Aminotransferase (ALT) 20 7-40 U/L Alkaline Phosphatase 163 H 46-116 U/L Troponin I High Sensitivity 19 </=54 ng/L B-Type Natriuretic Peptide 664.79 0-100 pg/mL Total Protein 7.6 5.7-8.2 g/dL Albumin 4.3 3.2-4.8 g/dL White Blood Count 6.4 4.4-10.8 10^3/uL Red Blood Count 2.40 L 4.5-5.90 10^6/uL Hemoglobin 8.6 L 13.5-17.5 g/dL Hematocrit 24.9 L 41.0-53.0 % Mean Corpuscular Volume 103.7 H 80.0-100.0 fL Mean Corpuscular Hemoglobin 35.6 H 28.0-32.0 pg Mean Corpuscular Hemoglobin Concent 34.3 32.0-36.0 g/dL Red Cell Distribution Width 15.3 H 11.8-14.3 % Platelet Count 323 140-450 10^3/uL Mean Platelet Volume 6.2 L 6.9-10.8 fL Neutrophils (%) (Auto) 72.1 37.0-80.0 % Lymphocytes (%) (Auto) 17.3 10.0-50.0 % Monocytes (%) (Auto) 8.3 0.0-12.0 % Eosinophils (%) (Auto) 1.3 0.0-7.0 % Basophils (%) (Auto) 1.0 0.0-2.0 % Neutrophils # (Auto) 4.6 1.6-8.6 10 ^3/uL Lymphocytes # (Auto) 1.1 0.4-5.4 10 ^3/uL Monocytes # (Auto) 0.5 0-1.3 10 ^3/uL Eosinophils # (Auto) 0.1 0-0.8 10 ^3/uL Basophils # (Auto) 0.1 0-0.2 10 ^3/uL Nucleated Red Blood Cells 0.0 % SEPSIS Sepsis Screen Date sepsis recognized/suspect: Apr 20, 2025 Time Sepsis recognized/suspect: 1800 Recent Procedure: No On Antibiotic Therapy: No Respiratory Rate >20: No Heart Rate >90: No Temp<36 C (96.8 F) or >38.3 C: No SBP <90 or MAP <65 mmHG: No New Acute Mental Status Change: No Is the patient on CPAP, BIPAP,: No Physician Orders Ct Ab Pel Wo Con-No Oral Or Iv (04/20/25 15:49) Electrocardigram (04/20/25 15:49) Chest Xray 1 View (04/20/25 15:49) Admit (04/20/25 19:46) Nitroglycerin Sublingual (Ntrostat Subli (04/20/25 20:00) Morphine Sulfate Injection (04/20/25 20:00) Stat Ekg For Chest Pain (04/20/25:46) Notify Of Changes From Base (04/20/25 19:46) Visual Basic Programmer For 24 Hours (04/20/25 19:46) Emergency Dysrhythmia Protocol (04/20/25:46) Rhythm Strips Once Every Shift (04/20/25 19:46) Oxygen By Nasal Cannula (04/20/25 19:46) * Urology Consult (04/20/25 21:15) *[facility] (04/20/25 21:15) Atorvastatin (Lipitor) (04/20/25 22:00) Empagliflozin (Jardiance) (04/21/25 10:00) Furosemide Tablet (Lasix Tablet) (04/21/25 10:00) Metoprolol Xl Succinate (Toprol Xl) (04/21/25 10:00) (Nf) Biktarvy 50-200-25 (04/21/25 10:00) Kidney (04/20/25 21:15) Stool Occult Blood (04/20/25 21:15) Basic Metabolic Panel (04/21/25 04:00) Renal Standard(2gna,3gk,Lopho) (04/21/25 Breakfast) Hydrocodone-Acet 5/325mg Tab (Media 5/32 (04/20/25 21:15) Ondansetron Hcl (Zofran) (04/20/25 21:15) Complete Blood Count (04/21/25 04:00) Cardiac Diet-2gna,Lofat,Lochol (04/21/25 Breakfast) Echo 2d Mode Cardiac Dop (04/20/25 21:15) Condition: Fair (04/20/25 21:15) Acetaminophen Tablet (Tylenol Tablet) (04/20/25 21:15) Bedrest With Bathroom Privileg (04/20/25 21:15) Baclofen Tablet (Liorisal Tablet) (04/20/25 21:15) Calcium Gluc 1,000mg/50ml-Ns (04/20/25 21:30) Sodium Bicarb Tab (04/20/25 22:00) Sodium Bicarb 50meq/50ml Vial (04/20/25 21:30) Dextrose 50% Syringe (04/20/25 21:30) Insulin R (Human) (Insulin R) (04/20/25 21:30) Sodium Zirconium Cyclosilicate (Lokelma) (04/20/25 21:30) Vital Signs Date Time Temp Pulse Resp B/P (MAP) Pulse Ox O2 Delivery O2 Flow Rate FiO2 04/20/25 20:05 97.6 73 16 163/89 (113) 99 97.6 04/20/25 20:00 75 04/20/25 20:00 98.3 105 18 160/88 (112) 100 98.3 04/20/25 18:22 74 14 168/90 04/20/25 18:05 73 16 99 Room Air* 0 21 04/20/25 18:00 98.3 79 18 163/89 (113) 100 98.3 04/20/25 17:52 79 16 144/97 04/20/25 17:45 168/90 04/20/25 17:32 98.3 81 18 151/88 (109) 100 98.3 04/20/25 16:27 76 Laboratory Tests Test 04/20/25 14:41 04/20/25 16:06 White Blood Count 6.4 10^3/uL (4.4-10.8) Lactic Acid Level 1.4 mmol/L (0.4-2.0) Medications Medications Dose Ordered Sig/Minna Route Start Time Stop Time Status Last Admin Dose Admin Ceftriaxone Sodium 50 ml @ 100 mls/hr ONCE ONCE IV 04/20/25 17:00 04/20/25 18:05 DC 04/20/25 17:51 100 MLS/HR Furosemide 40 mg ONCE ONCE IV 04/20/25 17:45 04/20/25 18:05 DC 04/20/25 17:45 40 MG Morphine Sulfate 4 mg ONCE ONCE IV 04/20/25 16:00 04/20/25 18:05 DC 04/20/25 17:52 4 MG Ondansetron HCl 4 mg ONCE ONCE IV 04/20/25 17:00 04/20/25 18:05 DC 04/20/25 17:51 4 MG Assessment/Plan Assessment/Plan Acute renal failure Hematuria ? Urinary neoplasm Hypokalemia Bilateral hydronephrosis HIV CHF Plan Admit the patient to telemetry to the hospitalist Nephrology consultation Nephrology consult Resume home medications Hold Eliquis Continue treatment per orders Plan discussed with: Patient My Orders Orders - JT NORIEGA Procedure Category Date Status Time Admit ADMIT 04/20/25 Transmitted 19:46 Nitroglycerin PHA 04/20/25 In Process Sublingual (Ntrostat 20:00 Morphine Sulfate PHA 04/20/25 In Process Injection 20:00 Stat Ekg For Chest ANDREY 04/20/25 In Process Pain 19:46 Notify Of Changes [facility] 04/20/25 In Process From Base 19:46 Visual Basic Programmer For [facility] 04/20/25 In Process 24 Hours 19:46 Emergency Dysrhythmia [facility] 04/20/25 In Process Protocol 19:46 Rhythm Strips Once [facility] 04/20/25 In Process Every Shift 19:46 Oxygen By Nasal RT 04/20/25 Transmitted Cannula 19:46 * Urology Consult CONS 04/20/25 Transmitted 21:15 *[facility] CONS 04/20/25 Transmitted -[place] 21:15 Atorvastatin (Lipitor) PHA 04/20/25 Logged 22:00 Empagliflozin PHA 04/21/25 Logged (Jardiance) 10:00 Furosemide Tablet PHA 04/21/25 Logged (Lasix Tablet) 10:00 Metoprolol Xl PHA 04/21/25 Logged Succinate (Toprol Xl) 10:00 (Nf) Biktarvy PHA 04/21/25 Logged 50-200-25 10:00 Kidney US 04/20/25 Logged 21:15 Stool Occult Blood LAB 04/20/25 Logged 21:15 Basic Metabolic Panel LAB 04/21/25 Verified 04:00 Renal DIET 04/21/25 Transmitted Standard(2gna,3gk,Lopho) Breakfast Hydrocodone-Acet PHA 04/20/25 Logged 5/325mg Tab (Media 21:15 Ondansetron Hcl PHA 04/20/25 Logged (Zofran) 21:15 Complete Blood Count LAB 04/21/25 Verified 04:00 Cardiac DIET 04/21/25 Transmitted Diet-2gna,Lofat,Lochol Breakfast Echo 2d Mode Cardiac US 04/20/25 Logged DOP 21:15 Condition: Fair ANDREY 04/20/25 In Process 21:15 Acetaminophen Tablet PHA 04/20/25 Logged (Tylenol Tablet) 21:15 Bedrest With Bathroom ANDREY 04/20/25 In Process Privileg 21:15 Baclofen Tablet PHA 04/20/25 Logged (Liorisal Tablet) 21:15 Calcium Gluc PHA 04/20/25 Logged 1,000mg/50ml-Ns 21:30 Sodium Bicarb Tab PHA 04/20/25 Logged 22:00 Sodium Bicarb PHA 04/20/25 Logged 50meq/50ml Vial 21:30 Dextrose 50% Syringe PHA 04/20/25 Logged 21:30 Insulin R (Human) PHA 04/20/25 Logged (Insulin R) 21:30 Sodium Zirconium PHA 04/20/25 Logged Cyclosilicate 21:30 Date of Service: Apr 20, 2025 Billing Provider: JT NORIEGA Common Visit Codes: [id number] INP/OBS CARE (HIGH) JT NORIEGA Apr 20, 2025 21:52
[2025-04-20] MEDS: ATORVASTATIN 20 MG TAB PO SCH (22:00)
--- NOTE | 2025-04-20 23:13 | DVH ---
INDICATION: Renal failure TECHNIQUE: Multiple real-time sonographic images of the kidneys and bladder were obtained. COMPARISON: ECHO 2D MODE CARDIAC DOP on DOS: 12/30/22 FINDINGS: RIGHT kidney measures 11.8 cm in length. Severe hydronephrosis. LEFT kidney measures 8.8 cm in length. Severe hydronephrosis. Solid-appearing mass along the posterior aspect of the urinary bladder measuring 6.1 x 1.9 x 3.0 cm. Prevoid volume 793 cc. Postvoid volume 362 cc. IMPRESSION: Intraluminal bladder mass concerning for malignancy. Incomplete voiding with significant postvoid residual of 362 cc. Severe bilateral hydronephrosis.
[2025-04-20 23:49] VITALS: PULSE 84; RESP 19; O2SAT 100
[2025-04-21] VITALS (11 sets, daily range): BP systolic 135–160; BP diastolic 77–92; PULSE 70–122; RESP 14–20; TEMP 97.7–99.5; O2SAT 97–100
[2025-04-21] MEDS ORDERED: ONDA-155 PO (00:52)
[2025-04-21] MEDS ORDERED: ACET-1079 PO (00:52)
[2025-04-21] MEDS ORDERED: POTA-36 PO (00:52)
[2025-04-21] MEDS: SODIUM BICARBONATE 650 MG TAB PO SCH (01:17)
[2025-04-21 06:05] LABS: Hematocrit 22.4 % (41.0-53.0); Hemoglobin 7.7 g/dL (13.5-17.5); Mean Corpuscular Hemoglobin 35.3 pg (28.0-32.0); Mean Corpuscular Volume 103.0 fL (80.0-100.0); Nucleated Red Blood Cells % 0.1 %
[2025-04-21 06:08] LABS: Anion Gap 16 (5-15); Sodium 143 mmol/L (136-145)
[2025-04-21 06:09] LABS: Calcium 9.1 mg/dL (8.7-10.4)
[2025-04-21 06:13] LABS: Carbon Dioxide 17 mmol/L (20-31); Chloride 110 mmol/L (98-107)
[2025-04-21 06:14] LABS: BUN/Creatinine Ratio 12.2 (10.0-20.0); Glucose 93 mg/dL (74-106)
[2025-04-21 06:15] LABS: Potassium 5.6 mmol/L (3.5-5.1)
[2025-04-21 06:17] LABS: Blood Urea Nitrogen 90 mg/dL (9-23)
[2025-04-21] MEDS: FUROSEMIDE 100 MG/10ML VIAL IV ONE ×2 (07:15→22:20)
[2025-04-21] MEDS ORDERED: FUROSEMIDE 40 MG/4 ML VIAL IV ONE (07:15)
[2025-04-21] MEDS: SODIUM BICARB 8.4% 50Meq/50ml SYR INJ IV ONE ×2 (07:15→10:13)
[2025-04-21] MEDS ORDERED: SODIUM BICARB 50mEq/50ml Vial 150 ML in D5W 5% 1,000 ML IV SCH (07:15)
[2025-04-21] MEDS: DEXTROSE (50%) 50ML SYRG IV ONE ×2 (07:15→10:11)
[2025-04-21] MEDS: CALCIUM CHL 100MG/ML 1,000 MG in D5W 5% 100 ML IV ONE (07:15)
[2025-04-21] MEDS: InsuLIN REG 1unit/0.01ml Soln (100units/ml) IV ONE ×2 (07:15→10:07)
[2025-04-21 08:12] LABS: Triglycerides 139 mg/dL (< 150)
[2025-04-21 08:15] LABS: Cholesterol 93 mg/dL (< 200); HDL Cholesterol 30 mg/dL (40-59)
[2025-04-21] MEDS: ALBUTEROL SULF 2.5 MG/0.5ML(0.5%) NEB SOLN NEB ONE (08:23)
[2025-04-21] MEDS: BIKTARVY PO SCH (10:00)
[2025-04-21] MEDS ORDERED: FUROSEMIDE 40 MG TAB PO SCH (10:00)
[2025-04-21 10:13] LABS: INR 1.14 (0.9-1.15); Partial Thromboplastin Time 26.7 SEC (24.5-34.5); Prothrombin Time 11.9 sec (9.3-11.8)
[2025-04-21] MEDS: SODIUM ZIRCONIUM CYCL 10 GM PAK PO ONE (10:13)
[2025-04-21] MEDS: FUROSEMIDE 20 MG/2 ML VIAL IV ONE (10:14)
--- NOTE | 2025-04-21 10:47 | DVHINCON2 ---
Date of service: Apr 21, 2025 Referring Physician hospitalist Reason for Consultation ZHEN History of Present Illness 64 year male w/ PMH CHF on lasix and potassium , PE on eliquis , hypertension and HIV on retrovirals. He reports his medical care is from [facility] [place] locally. he presented with leg pain. On eval he is noted to have cr 7.24 and k > 6.0 nephrology called for eval. he has imagining noting possible metastatic bone lesions in lumbar spine and a mass in his bladder causing b/l hydronephrosis Past Medical History as above Allergies: Coded Allergies: NO KNOWN ALLERGIES (Unverified , 12/11/16) Home Meds Active Scripts Naproxen (Naproxen) 500 Mg Tab, 500 MG PO BID, #30 TAB Prov:BORIS BOLDEN 09/05/24 Apixaban Base (ELIQUIS) 5 Mg Tab, 10 MG PO BID for 7 Days, #14 TAB 10MG BID X 7 DAYS THEN 5MG PO BID FOR AT LEAST 6 MONTHS FOR DVT/PE TREATMENT Prov:JESSICA LOOMIS MD 01/02/23 Apixaban Base (ELIQUIS) 5 Mg Tab, 5 MG PO BID for 30 Days, #60 TAB Prov:JESISCA LOOMIS MD 01/02/23 Empagliflozin (Jardiance) 10 Mg Tab, 10 MG PO DAILY for 30 Days, #30 TAB Prov:JESSICA LOOMIS MD 01/02/23 Atorvastatin Calcium (Lipitor) 40 Mg Tab, 1 TAB PO DAILY, #30 TAB 5 Refills Prov:JESSICA LOOMIS MD 01/02/23 Furosemide (Lasix) 40 Mg Tab, 40 MG PO DAILY for 30 Days, #30 TAB Prov:JESSICA LOOMIS MD 01/02/23 Metoprolol Succinate (Toprol Xl) 25 Mg Tab, 1 TAB PO DAILY, #30 TAB 5 Refills Prov:JESSICA LOOMIS MD 01/02/23 Reported Medications Ondansetron HCl (Ondansetron) 4 Mg Tab, 4 MG PO, TAB 04/21/25 Potassium Chloride (POTASSIUM CHLORIDE CR) 10 Meq Tb, 8 MEQ PO, TAB 04/21/25 Acetaminophen (Tylenol) 325 Mg Tb, 500 MG PO, TAB 04/21/25 Gmlsilznopf-Qbmnmkvchcadu-Biaj (Biktarvy 50-200-25 mg) 1 Tab Tab, 1 TAB PO DAILY 12/29/22 Current Medications Current Medications Medications (Trade) Dose Ordered Sig/Minna Route PRN Reason Start Time Stop Time Status Last Admin Nitroglycerin (Ntrostat Sublingual) 0.4 mg Q5MINP PRN SL FOR CHEST PAIN 04/20/25 20:00 04/21/25 08:26 DC Morphine Sulfate 2 mg Q30M PRN IV FOR CHEST PAIN 04/20/25 20:00 04/21/25 08:26 DC Atorvastatin Calcium (Lipitor) 40 mg HS PO 04/20/25 22:00 04/20/25 22:00 Empaglifozin (Jardiance) 10 mg DAILY PO 04/21/25 10:00 Furosemide (Lasix Tablet) 40 mg DAILY PO 04/21/25 10:00 04/21/25 08:26 DC Metoprolol Succinate (Toprol Xl) 25 mg DAILY PO 04/21/25 10:00 Patient Own Medication 1 tab DAILY PO 04/21/25 10:00 Acetaminophen/ Hydrocodone Bitart ([place] 5/325MG Tab) 1 tab Q4HP PRN PO MODERATE PAIN (4-6 PAIN SCALE) 04/20/25 21:15 Ondansetron HCl (Zofran) 4 mg Q4HP PRN IV NAUSEA / VOMITING 04/20/25 21:15 Acetaminophen (Tylenol Tablet) 650 mg Q6HP PRN PO PAIN SCALE 1-3 OR TEMP>100.4 04/20/25 21:15 Sodium Bicarbonate 650 mg BID PO 04/20/25 22:00 04/21/25 01:17 Clonidine HCl (Catapres Tablet) 0.1 mg Q6HP PRN PO SBP>160 04/21/25 01:15 04/21/25 01:17 Sodium Bicarbonate 150 ml/Dextrose 1,150 ml @ 100 mls/hr [id number] IV 04/21/25 07:15 Family History: Diabetes mellitus G8 MOTHER FH: cancer G8 FATHER FH: heart attack G8 FATHER FH: heart failure G8 MOTHER Review of Systems leg pain H&P Exam Vital Signs/I&O Vital Sign Date Time Temp Pulse Resp B/P (MAP) Pulse Ox O2 Delivery O2 Flow Rate FiO2 04/21/25 10:14 135/85 04/21/25 09:00 98.0 91 17 98 98.0 04/21/25 08:25 Room Air* 0 21 Intake and Output 04/20/25 04/21/25 18:59 06:59 Intake Total 50 ml 700 ml Balance 50 ml 700 ml Intake Oral 700 ml IV Total 50 ml # Voids 3 Physical Exam malnourished male decreased muscle tone abd soft nd, nd no pitting edema Labs/Diagnostic Data Labs/Diagnostic Data Laboratory Tests Test 04/21/25 08:50 04/21/25 04:52 04/20/25 16:07 04/20/25 16:06 Range/Units Prothrombin Time 11.9 H 9.3-11.8 sec Prothrombin Time INR 1.14 0.9-1.15 Activated Partial Thromboplast Time 26.7 24.5-34.5 SEC White Blood Count 5.6 4.4-10.8 10^3/uL Red Blood Count 2.18 L 4.5-5.90 10^6/uL Hemoglobin 7.7 L 13.5-17.5 g/dL Hematocrit 22.4 #L 41.0-53.0 % Mean Corpuscular Volume 103.0 H 80.0-100.0 fL Mean Corpuscular Hemoglobin 35.3 H 28.0-32.0 pg Mean Corpuscular Hemoglobin Concent 34.3 32.0-36.0 g/dL Red Cell Distribution Width 14.8 H 11.8-14.3 % Platelet Count 260 140-450 10^3/uL Mean Platelet Volume 6.5 L 6.9-10.8 fL Neutrophils (%) (Auto) 68.2 37.0-80.0 % Lymphocytes (%) (Auto) 16.5 10.0-50.0 % Monocytes (%) (Auto) 13.0 H 0.0-12.0 % Eosinophils (%) (Auto) 1.4 0.0-7.0 % Basophils (%) (Auto) 0.9 0.0-2.0 % Neutrophils # (Auto) 3.8 1.6-8.6 10 ^3/uL Lymphocytes # (Auto) 0.9 0.4-5.4 10 ^3/uL Monocytes # (Auto) 0.7 0-1.3 10 ^3/uL Eosinophils # (Auto) 0.1 0-0.8 10 ^3/uL Basophils # (Auto) 0.1 0-0.2 10 ^3/uL Nucleated Red Blood Cells 0.1 % Erythrocyte Sedimentation Rate 103 H 0-20 mm/hr Sodium Level 143 141 136-145 mmol/L Potassium Level 5.6 *H 5.7 *H 3.5-5.1 mmol/L Chloride Level 110 H 110 H 98-107 mmol/L Carbon Dioxide Level 17 L 16 L 20-31 mmol/L Anion Gap 16 H 15 5-15 Blood Urea Nitrogen 90 #*H 101 *H 9-23 mg/dL Creatinine 7.40 H 7.14 H 0.700-1.30 mg/dL Glomerular Filtration Rate Calc 8 8 >90 mL/min BUN/Creatinine Ratio 12.2 14.1 10.0-20.0 Serum Glucose 93 96 74-106 mg/dL Hemoglobin A1c 4.8 <5.7 % A1C Calcium Level 9.1 9.0 8.7-10.4 mg/dL Magnesium Level 1.7 1.6-2.6 mg/dL Triglycerides Level 139 < 150 mg/dL Cholesterol Level 93 < 200 mg/dL LDL Cholesterol 38 < 100 mg/dL HDL Cholesterol 30 L 40-59 mg/dL Thyroid Stimulating Hormone (TSH) 1.67 0.55-4.78 uIU/mL Parathyroid Hormone (Intact) 354.9 H 18.4-80.1 pg/mL Urine Color Colorless Yellow Urine Clarity Clear Clear Urine pH 5.5 5.0-9.0 Urine Specific [place] 1.009 1.001-1.035 Urine Protein Trace H Negative Urine Ketones Negative Negative Urine Blood 3+ H Negative /uL Urine Nitrite Negative Negative Urine Bilirubin Negative Negative Urine Urobilinogen Normal Negative mg/dL Urine Leukocyte Esterase Negative Negative /uL Urine RBC 272 0 - 3 /hpf Urine Microscopic WBC 22 H 0-3 /HPF Urine Squamous Epithelial Cells None seen <5 /hpf Urine Bacteria Few H None Seen /hpf Urine Glucose 2+ H Normal mg/dL Lactic Acid Level 1.4 0.4-2.0 mmol/L Total Bilirubin < 0.2 L 0.2-1.0 mg/dL Direct Bilirubin < 0.1 <0.3 mg/dL Aspartate Amino Transferase (AST) 20 13-40 U/L Alanine Aminotransferase (ALT) 20 7-40 U/L Alkaline Phosphatase 163 H 46-116 U/L Troponin I High Sensitivity 19 </=54 ng/L B-Type Natriuretic Peptide 664.79 0-100 pg/mL Total Protein 7.6 5.7-8.2 g/dL Albumin 4.3 3.2-4.8 g/dL Test 04/20/25 14:41 Range/Units White Blood Count 6.4 4.4-10.8 10^3/uL Red Blood Count 2.40 L 4.5-5.90 10^6/uL Hemoglobin 8.6 L 13.5-17.5 g/dL Hematocrit 24.9 L 41.0-53.0 % Mean Corpuscular Volume 103.7 H 80.0-100.0 fL Mean Corpuscular Hemoglobin 35.6 H 28.0-32.0 pg Mean Corpuscular Hemoglobin Concent 34.3 32.0-36.0 g/dL Red Cell Distribution Width 15.3 H 11.8-14.3 % Platelet Count 323 140-450 10^3/uL Mean Platelet Volume 6.2 L 6.9-10.8 fL Neutrophils (%) (Auto) 72.1 37.0-80.0 % Lymphocytes (%) (Auto) 17.3 10.0-50.0 % Monocytes (%) (Auto) 8.3 0.0-12.0 % Eosinophils (%) (Auto) 1.3 0.0-7.0 % Basophils (%) (Auto) 1.0 0.0-2.0 % Neutrophils # (Auto) 4.6 1.6-8.6 10 ^3/uL Lymphocytes # (Auto) 1.1 0.4-5.4 10 ^3/uL Monocytes # (Auto) 0.5 0-1.3 10 ^3/uL Eosinophils # (Auto) 0.1 0-0.8 10 ^3/uL Basophils # (Auto) 0.1 0-0.2 10 ^3/uL Nucleated Red Blood Cells 0.0 % Sodium Level 140 136-145 mmol/L Potassium Level 5.3 H 3.5-5.1 mmol/L Chloride Level 109 H 98-107 mmol/L Carbon Dioxide Level 17 L 20-31 mmol/L Anion Gap 14 5-15 Blood Urea Nitrogen 98 *H 9-23 mg/dL Creatinine 7.24 H 0.700-1.30 mg/dL Glomerular Filtration Rate Calc 8 >90 mL/min BUN/Creatinine Ratio 13.5 10.0-20.0 Serum Glucose 137 H 74-106 mg/dL Calcium Level 9.2 8.7-10.4 mg/dL Assessment Acute kidney injury due to obstruction and volume depletion baseline renal function was normal in 2022 b/l hydronephrosis and bladder mass hyperkalemia metabolic acidosis PE on eliquis anemia HIV on retrovirals discontinue home potassium hyperkalemia protocol meds place torrez catheter start sodium bicarb drip strict I/O urology consultation sclerotic lumbar lesions rec correlate with leg pain and rule out neurologic involvement echo rec PRBC to keep hb above 8.0 sepsis w/u high complexity, guarded prognosis needs close monitoring and daily eval for possible renal replacement if fails medical therapy Plan discussed with: Patient LARRY SHOOK MD Apr 21, 2025 10:47
[2025-04-21] MEDS: MAGNESIUM SULFATE 1GM/100ML 100 ML IV ONE (11:03)
--- NOTE | 2025-04-21 11:24 | DVHPNRES ---
Progress Note Date Seen: Apr 21, 2025 Resident Creating Document: DENYS DIAMOND RESIDENT Has the PT tested + for MRSA If YES, has PT been informed?: No Medical Necessity Reason Pt with a Central, PICC or Fol: No Subjective Review of Systems Carlos Abdalla is a 64-year-old male with past medical history of CHF (EF 14%) , HTN, PE (on Eliquis), OR, CKD and HIV (1994, on antiretrovital therapy. The patient came to the [facility] ED with chief complain of 2 week of noticing bloody urine. He states that initially it was david blood male as turn into a pinkish color. He reports being on Eliquis due to a pulmonary embolism diagnosed last year. On further questioning, he reports unintentional weight lost of approximate 10punds. The patient reports 1 week of bilateral leg cramping, this prompted his visit to the ED. The patient denies chest pain or shortness for breath. In the ED the UA report hematuria and CT abdomen showed thickening of bladder wall and US of bladder showed a mass. The patient was admitted for further assessment and management. Past Medical History: hypertension, HIV, CKD. Past Surgical History: Hernia repair Social Hx: Family History Noncontributory. Smoke: <1 pack per day ALCOHOL: none. Drugs: Marijuana Lives:alone PCP: at [facility] course: The patient was examined and evaluated at bedside. Vital signs, labs, chart was reviewed. The patient reports improvement in hematuria. Urology is on board, they requested Miller catheter and cystoscopy was schedule for tomorrow 04/22/25. Miller catheter was placed draining clear urine. Due to CKD, nephrology is on board, patient was started and bicarb drip due to hyperkalemia, also hyperkalemia protocol was started. Due to low hemoglobin FOBT, type and screen was request. We will continue following the progress of this patient. ROS: Constitutional: weight loss, no fever no chills. HEENT: Denies changes in vision and hearing. Respiratory: denies of cough, nasal congestion Cardiovascular: Denies chest discomfort or palpitations GI: denies abdominal, nausea, vomiting and diarrhea. : Hematuria, Denies dysuria and urinary frequency. Musculoskeletal: denies edema/ Skin: Denies rash and pruritus. Neurologic: denies dizziness Objective vital signs Vital Sign Date Time Temp Pulse Resp B/P (MAP) Pulse Ox O2 Delivery O2 Flow Rate FiO2 04/21/25 10:14 135/85 04/21/25 09:00 98.0 91 17 98 98.0 04/21/25 08:25 Room Air* 0 21 Total Intake and Output 04/20/25 04/20/25 04/21/25 15:00 23:00 07:00 Intake Total 50 ml 700 ml Balance 50 ml 700 ml medications Current Medications Medications Dose Ordered Sig/Minna Route Start Time Stop Time Status Last Admin Dose Admin Atorvastatin Calcium 40 mg HS PO 04/20/25 22:00 04/20/25 22:00 40 MG Empaglifozin 10 mg DAILY PO 04/21/25 10:00 Metoprolol Succinate 25 mg DAILY PO 04/21/25 10:00 Patient Own Medication 1 tab DAILY PO 04/21/25 10:00 Acetaminophen/ Hydrocodone Bitart 1 tab Q4HP PRN PO 04/20/25 21:15 Ondansetron HCl 4 mg Q4HP PRN IV 04/20/25 21:15 Acetaminophen 650 mg Q6HP PRN PO 04/20/25 21:15 Sodium Bicarbonate 650 mg BID PO 04/20/25 22:00 04/21/25 01:17 650 MG Clonidine HCl 0.1 mg Q6HP PRN PO 04/21/25 01:15 04/21/25 01:17 0.1 MG Sodium Bicarbonate 150 ml/Dextrose 1,150 ml @ 100 mls/hr [id number] IV 04/21/25 07:15 Examination General Appearance: Cachectic, Alert, Oriented X3, Cooperative, No acute distress HEENT: Atraumatic, PERRLA, EOMI, Mucous membr. moist/pink Respiratory: Normal air movement Cardiovascular: Regular rate, Normal S1, Normal S2, No murmurs, no chest pain on palpation of the chest. Abdominal: Normal bowel sounds, Soft, No tenderness, No hepatospenomegaly, No masses : Costovertebral angle negative Extremities: No clubbing, No cyanosis, No edema, Normal pulses, No tenderness/swelling Skin: No breakdown, No significant lesion Neuro: Normal gait, Normal speech, Strength at 5/5 X4 ext, Normal tone, Sensation intact, Cranial nerves 3-12 NL, Reflexes 2+ Psych/Mental Status: Mental status NL, Mood NL laboratory and microbiology Laboratory Tests 04/21/25 04:52 Test 04/21/25 04:52 Range/Units Serum Glucose 93 74-106 mg/dL Problem List/Assessment/Plan Problem List/Assessment/Plan 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 #Severe Protein-Calorie Malnutrition in the setting of possible neoplasia Nutritional consult. #Hypertensive heart disease with systolic heart failure Med reconciliation Metoprolol 25mg po daily #Chronic PE Hold Eliquis due to hematuria #chronic HIV Biktarvy po daily. GI: pantoprazol DVT prophylaxis: eliquis on hold due to hematuria Diet: renal diet, NPO after midnight for procedure. Code status: Full code PCP: [facility] [place] Goals of care discussed with patient >30min. Case and plan discussed with Dr. Rogel. Plan discussed with: Patient My Orders My Orders Orders - DENYS DIAMOND Procedure Category Date Status Time Electrocardigram EKG 04/21/25 Logged 07:45 Urine Bacterial CHELSEY 04/21/25 In Process Culture 07:45 Drug Screen LAB 04/21/25 In Process 07:51 Type And Screen BBK 04/21/25 In Process 07:53 Complete Blood Count LAB 04/22/25 Verified 04:00 Basic Metabolic Panel LAB 04/22/25 Verified 04:00 Sodium Zirconium PHA 04/21/25 Transmitted Cyclosilicate 22:00 Visit Coding STANDARD RES Billing Provider: JAYDA HUMMEL MD Date of Service if different f: Apr 21, 2025 Common Visit Codes: [id number] INP/OBS CARE(HIGH) DENYS DIAMOND RESIDENT Apr 21, 2025 11:24
[2025-04-21 11:45] LABS: Protein, Urine 32.2 mg/dL (1-14)
[2025-04-21 11:47] LABS: Amphetamine Screen, Urine Neg (NEGATIVE)
[2025-04-21 11:48] LABS: Barbiturate Scree,Urine Neg (NEGATIVE); Benzodiazephine Screen, Urine Neg (NEGATIVE); Cannabinoid Screen, Urine Neg (NEGATIVE); Cocaine Screen, Urine Neg (NEGATIVE); Opiate Scree,Urine Neg (NEGATIVE); Phencyclidine Screen, Urine Neg (NEGATIVE)
[2025-04-21 11:51] LABS: Iron 59.0 ug/dL (65-175)
[2025-04-21 11:54] LABS: Total Iron Binding Capacity 272.0 ug/dL (250-425)
--- NOTE | 2025-04-21 12:27 | DVHINCON2 ---
Date of service: Apr 21, 2025 Referring Physician Hospitalist Reason for Consultation Bladder mass hematuria History of Present Illness 64-year-old male presents for evaluation of hematuria. Patient endorses a two week history of noticing bloody urine. He states that initially it was david blood male as turn into a pinkish color. He reports being on Eliquis due to a pulmonary embolism diagnosed last year. Denies any recent weight loss. No chest pain or shortness for breath. He does have a history of congestive heart failure and possible renal failure as he states awaiting a referral for Nephrology. Past Medical History Diabetes mellitus, hypertension, HIV,? Renal failure Past Surgical History Hernia repair Family History: Diabetes mellitus G8 MOTHER FH: cancer G8 FATHER FH: heart attack G8 FATHER FH: heart failure G8 MOTHER Allergies: Coded Allergies: NO KNOWN ALLERGIES (Unverified , 12/11/16) Home Meds Active Scripts Naproxen (Naproxen) 500 Mg Tab, 500 MG PO BID, #30 TAB Prov:BORIS BOLDEN 09/05/24 Apixaban Base (ELIQUIS) 5 Mg Tab, 10 MG PO BID for 7 Days, #14 TAB 10MG BID X 7 DAYS THEN 5MG PO BID FOR AT LEAST 6 MONTHS FOR DVT/PE TREATMENT Prov:JESSICA LOOMIS MD 01/02/23 Apixaban Base (ELIQUIS) 5 Mg Tab, 5 MG PO BID for 30 Days, #60 TAB Prov:JESSCIA LOOMIS MD 01/02/23 Empagliflozin (Jardiance) 10 Mg Tab, 10 MG PO DAILY for 30 Days, #30 TAB Prov:JESSICA LOOMIS MD 01/02/23 Atorvastatin Calcium (Lipitor) 40 Mg Tab, 1 TAB PO DAILY, #30 TAB 5 Refills Prov:JESSICA LOOMIS MD 01/02/23 Furosemide (Lasix) 40 Mg Tab, 40 MG PO DAILY for 30 Days, #30 TAB Prov:JESSICA LOOMIS MD 01/02/23 Metoprolol Succinate (Toprol Xl) 25 Mg Tab, 1 TAB PO DAILY, #30 TAB 5 Refills Prov:JESSICA LOOMIS MD 01/02/23 Reported Medications Ondansetron HCl (Ondansetron) 4 Mg Tab, 4 MG PO, TAB 04/21/25 Potassium Chloride (POTASSIUM CHLORIDE CR) 10 Meq Tb, 8 MEQ PO, TAB 12/16/25 Acetaminophen (Tylenol) 325 Mg Tb, 500 MG PO, TAB 04/21/25 Spplclxvlqt-Ddbcypfxysqla-Zpoo (Biktarvy 50-200-25 mg) 1 Tab Tab, 1 TAB PO DAILY 12/29/22 Current Medications Current Medications Medications (Trade) Dose Ordered Sig/Minna Route PRN Reason Start Time Stop Time Status Last Admin Nitroglycerin (Ntrostat Sublingual) 0.4 mg Q5MINP PRN SL FOR CHEST PAIN 04/20/25 20:00 04/21/25 08:26 DC Morphine Sulfate 2 mg Q30M PRN IV FOR CHEST PAIN 04/20/25 20:00 04/21/25 08:26 DC Atorvastatin Calcium (Lipitor) 40 mg HS PO 04/20/25 22:00 04/20/25 22:00 Empaglifozin (Jardiance) 10 mg DAILY PO 04/21/25 10:00 Furosemide (Lasix Tablet) 40 mg DAILY PO 04/21/25 10:00 04/21/25 08:26 DC Metoprolol Succinate (Toprol Xl) 25 mg DAILY PO 04/21/25 10:00 Patient Own Medication 1 tab DAILY PO 04/21/25 10:00 Acetaminophen/ Hydrocodone Bitart (Sorrento 5/325MG Tab) 1 tab Q4HP PRN PO MODERATE PAIN (4-6 PAIN SCALE) 04/20/25 21:15 Ondansetron HCl (Zofran) 4 mg Q4HP PRN IV NAUSEA / VOMITING 04/20/25 21:15 Acetaminophen (Tylenol Tablet) 650 mg Q6HP PRN PO PAIN SCALE 1-3 OR TEMP>100.4 04/20/25 21:15 Sodium Bicarbonate 650 mg BID PO 04/20/25 22:00 04/21/25 01:17 Clonidine HCl (Catapres Tablet) 0.1 mg Q6HP PRN PO SBP>160 04/21/25 01:15 04/21/25 01:17 Sodium Bicarbonate 150 ml/Dextrose 1,150 ml @ 100 mls/hr [id number] IV 04/21/25 07:15 Zirconium Oxide (Lokelma) 10 gm BID PO 04/21/25 22:00 Review of Systems Review of systems are currently negative otherwise addressed in HPI. Allergies: Coded Allergies: NO KNOWN ALLERGIES (Unverified , 12/11/16) Medications Current Medications Medications Dose Ordered Sig/Minna Route Start Time Stop Time Status Last Admin Dose Admin Nitroglycerin 0.4 mg Q5MINP PRN SL 04/20/25 20:00 Morphine Sulfate 2 mg Q30M PRN IV 04/20/25 20:00 Atorvastatin Calcium 40 mg HS PO 04/20/25 22:00 UNV Empaglifozin 10 mg DAILY PO 04/21/25 10:00 UNV Furosemide 40 mg DAILY PO 04/21/25 10:00 UNV Metoprolol Succinate 25 mg DAILY PO 04/21/25 10:00 UNV Patient Own Medication 1 tab DAILY PO 04/21/25 10:00 UNV Acetaminophen/ Hydrocodone Bitart 1 tab Q4HP PRN PO 04/20/25 21:15 UNV Ondansetron HCl 4 mg Q4HP PRN IV 04/20/25 21:15 UNV Acetaminophen 650 mg Q6HP PRN PO 04/20/25 21:15 UNV Sodium Bicarbonate 650 mg BID PO 04/20/25 22:00 UNV Vital Signs Vital Signs Date Time Temp Pulse Resp B/P (MAP) Pulse Ox O2 Delivery O2 Flow Rate FiO2 04/21/25 10:14 135/85 04/21/25 09:00 98.0 91 17 98 98.0 04/21/25 08:25 Room Air* 0 21 Physical Exam Vital Signs Date Time Temp Pulse Resp B/P (MAP) Pulse Ox O2 Delivery O2 Flow Rate FiO2 04/20/25 20:05 97.6 73 16 163/89 (113) 99 97.6 04/20/25 18:05 Room Air* 0 21 Exam Gen: 64-year-old male in mild distress Skin: Warm, dry, normal color and texture, no rash. HEENT: Normocephalic atraumatic, mucous membranes moist and pink. Neck: Cervical and supraclavicular nodes normal without enlargement, trachea is midline, thyroid gland is normal without masses. Pulmonary: Clear to auscultation and percussion bilaterally. Cardiac: Regular rate and rhythm. No murmur Abdomen: Soft, nontender, nondistended, bowel sounds present all 4 quadrants, no guarding, no rigidity, no organomegaly. Extremities: No cyanosis, clubbing, no edema Neuro: Cranial nerves II through XII grossly intact, normal affect and speech, no focal motor deficits. Labs/Diagnostic Data Labs Test 04/21/25 10:32 04/21/25 09:54 04/21/25 08:50 04/21/25 04:52 Range/Units Urine Creatinine 30.27 30.0-125.0 mg/dL Urine Protein/Creatinine Ratio 1.06 Urine Total Protein 32.2 H 1-14 mg/dL Urine Opiates Screen Neg NEGATIVE Urine Fentanyl Screen Neg NEGATIVE Urine Barbiturates Screen Neg NEGATIVE Urine Phencyclidine Screen Neg NEGATIVE Urine Amphetamines Screen Neg NEGATIVE Urine Benzodiazepines Screen Neg NEGATIVE Urine Cocaine Screen Neg NEGATIVE Urine Cannabinoids Screen Neg NEGATIVE POC Glucose 225 H 70-106 mg/dl Prothrombin Time 11.9 H 9.3-11.8 sec Prothrombin Time INR 1.14 0.9-1.15 Activated Partial Thromboplast Time 26.7 24.5-34.5 SEC White Blood Count 5.6 4.4-10.8 10^3/uL Red Blood Count 2.18 L 4.5-5.90 10^6/uL Hemoglobin 7.7 L 13.5-17.5 g/dL Hematocrit 22.4 #L 41.0-53.0 % Mean Corpuscular Volume 103.0 H 80.0-100.0 fL Mean Corpuscular Hemoglobin 35.3 H 28.0-32.0 pg Mean Corpuscular Hemoglobin Concent 34.3 32.0-36.0 g/dL Red Cell Distribution Width 14.8 H 11.8-14.3 % Platelet Count 260 140-450 10^3/uL Mean Platelet Volume 6.5 L 6.9-10.8 fL Neutrophils (%) (Auto) 68.2 37.0-80.0 % Lymphocytes (%) (Auto) 16.5 10.0-50.0 % Monocytes (%) (Auto) 13.0 H 0.0-12.0 % Eosinophils (%) (Auto) 1.4 0.0-7.0 % Basophils (%) (Auto) 0.9 0.0-2.0 % Neutrophils # (Auto) 3.8 1.6-8.6 10 ^3/uL Lymphocytes # (Auto) 0.9 0.4-5.4 10 ^3/uL Monocytes # (Auto) 0.7 0-1.3 10 ^3/uL Eosinophils # (Auto) 0.1 0-0.8 10 ^3/uL Basophils # (Auto) 0.1 0-0.2 10 ^3/uL Nucleated Red Blood Cells 0.1 % Erythrocyte Sedimentation Rate 103 H 0-20 mm/hr Sodium Level 143 136-145 mmol/L Potassium Level 5.6 *H 3.5-5.1 mmol/L Chloride Level 110 H 98-107 mmol/L Carbon Dioxide Level 17 L 20-31 mmol/L Anion Gap 16 H 5-15 Blood Urea Nitrogen 90 #*H 9-23 mg/dL Creatinine 7.40 H 0.700-1.30 mg/dL Glomerular Filtration Rate Calc 8 >90 mL/min BUN/Creatinine Ratio 12.2 10.0-20.0 Serum Glucose 93 74-106 mg/dL Hemoglobin A1c 4.8 <5.7 % A1C Calcium Level 9.1 8.7-10.4 mg/dL Magnesium Level 1.7 1.6-2.6 mg/dL Iron Level 59 L 65-175 ug/dL Total Iron Binding Capacity 272 250-425 ug/dL Percent Iron Saturation 21.7 20-55 % Triglycerides Level 139 < 150 mg/dL Cholesterol Level 93 < 200 mg/dL LDL Cholesterol 38 < 100 mg/dL HDL Cholesterol 30 L 40-59 mg/dL Thyroid Stimulating Hormone (TSH) 1.67 0.55-4.78 uIU/mL Parathyroid Hormone (Intact) 354.9 H 18.4-80.1 pg/mL Test 04/20/25 16:07 04/20/25 16:06 Range/Units Urine Color Colorless Yellow Urine Clarity Clear Clear Urine pH 5.5 5.0-9.0 Urine Specific [place] 1.009 1.001-1.035 Urine Protein Trace H Negative Urine Ketones Negative Negative Urine Blood 3+ H Negative /uL Urine Nitrite Negative Negative Urine Bilirubin Negative Negative Urine Urobilinogen Normal Negative mg/dL Urine Leukocyte Esterase Negative Negative /uL Urine RBC 272 0 - 3 /hpf Urine Microscopic WBC 22 H 0-3 /HPF Urine Squamous Epithelial Cells None seen <5 /hpf Urine Bacteria Few H None Seen /hpf Urine Glucose 2+ H Normal mg/dL Lactic Acid Level 1.4 0.4-2.0 mmol/L Total Bilirubin < 0.2 L 0.2-1.0 mg/dL Direct Bilirubin < 0.1 <0.3 mg/dL Aspartate Amino Transferase (AST) 20 13-40 U/L Alanine Aminotransferase (ALT) 20 7-40 U/L Alkaline Phosphatase 163 H 46-116 U/L Troponin I High Sensitivity 19 </=54 ng/L B-Type Natriuretic Peptide 664.79 0-100 pg/mL Total Protein 7.6 5.7-8.2 g/dL Albumin 4.3 3.2-4.8 g/dL PATIENT: RAUL DANIEL ACCT: [id number] UNIT: [id number] : 1960 LOC: ER ROOM / BED: / AGE / SEX: 64 / M ADM STATUS: REG ER SERVICE [id number] ORDERING PHYSICIAN: FLORA PANIAGUA NP PROCEDURE(s): ABPL - CT AB PEL WO CON-NO ORAL OR IV REASON: Hematuria ORDER NUMBER(s): [id number], ACCESSION NUMBER(s): [id number] EXAM: CT CT AB PEL WO CON-NO ORAL OR IV HISTORY: Hematuria COMPARISON STUDY: None TECHNIQUE: Multidetector CT of the abdomen and pelvis was performed from lung bases to pubic symphysis. Imaging was performed without IV contrast. Axial, coronal, and sagittal multiplanar reformats were obtained from the axial data set by the technologist. RADIATION DOSE: CTDI vol 5.5 mGy. DLP 311.9 mGy.cm FINDINGS: Limited evaluation of the solid organs in the absence of IV contrast. Lungs: The lung bases are clear. Liver: Unremarkable. Spleen: Unremarkable. Pancreas: Unremarkable. Gallbladder: Unremarkable. Adrenals: Unremarkable Kidneys: Severe bilateral hydroureteronephrosis. No obstructing calculus. Pelvic Viscera: Abnormal wall thickening of the right posterior aspect of the urinary bladder. Vasculature: Atherosclerotic aortoiliac calcification. Retroperitoneum: Probable retroperitoneal adenopathy, suboptimally assessed in the absence of IV contrast. Bowel: No bowel obstruction. Musculoskeletal: Multifocal sclerotic lesions most pronounced within the L3 and L4 vertebral bodies. Soft tissues: Unremarkable IMPRESSION: 1. Abnormal wall thickening of the right posterior aspect of the urinary bladder, neoplasm cannot be excluded. Correlation with cystoscopy is suggested. 2. Severe bilateral hydroureteronephrosis. 3. Multifocal sclerotic osseous lesions suspicious for metastatic disease in the appropriate clinical setting. 4. Additional findings as detailed. ATED BY: NAHUN MENSAH MD DICTATED DATE/TIME: 04/20/251645 SIGNED BY: NAHUN MENSAH MD SIGNED DATE/TIME: 04/20/251645 CC: Assessment bladder mass gross hematuria Plan/Recommendation Cystoscopy with TURBT TBA Plan discussed with: Patient, Other JOSE PEREZ MD Apr 21, 2025 12:27
[2025-04-21] MEDS: METOPROLOL SUCCINATE XL 50 MG TAB PO SCH (12:56)
[2025-04-21] MEDS: EMPAGLIFLOZIN 10 MG TAB PO SCH (12:56)
[2025-04-21 13:54] LABS: Potassium 3.9 mmol/L (3.5-5.1); Sodium 142 mmol/L (136-145)
[2025-04-21 13:55] LABS: Anion Gap 17 (5-15); Chloride 107 mmol/L (98-107)
[2025-04-21 13:56] LABS: Calcium 9.7 mg/dL (8.7-10.4)
[2025-04-21 13:57] LABS: Carbon Dioxide 18 mmol/L (20-31)
[2025-04-21 14:01] LABS: BUN/Creatinine Ratio 12.1 (10.0-20.0)
[2025-04-21 14:04] LABS: Glucose 172 mg/dL (74-106)
[2025-04-21 14:06] LABS: Blood Urea Nitrogen 91 mg/dL (9-23)
--- NOTE | 2025-04-21 16:16 | DVHSR ---
APPROVED REPORT EXAM: Two-dimensional and M-mode echocardiogram with Doppler and color Doppler. Blood Pressure: 135/80 mmHg INDICATION EF RISK FACTORS Height: 5'10", Weight: 124 DIMENSIONS LVDd 5.1 (3.8-5.7cm) LA (2D) 4.0 (1.9-4.0cm) Aortic Root 3.4 (2.0-3.7cm) LVDs 3.9 (2.5-4.0cm) LA (MM) (1.9-4.0cm) Aortic Cusp Exc 1.8 (1.5-2.0cm) EF (%) 45.0 (55-70%) Rt. Atrium (1.9-4.0cm) Asc. Aorta 3.5 cm IVSd 1.3 (0.7-1.1cm) RV (D) (1.8-2.4cm) PWd 1.1 (0.7-1.1cm) Mitral Valve Mitral Mitral Stenosis E/A ratio 0.0 2D MVA cm2 Aortic Valve Aortic Valve Aortic Stenosis LVOT Diameter 2.2 (1.8-2.4cm) Doppler LOULOU cm2 Other Information Quality : Technically Limited Rhythm : Technically limited study due to body habitus. Conclusion lvef 55% moderate to sevre LVH noted normal rv function no severe valve abnormality noted
[2025-04-21] MEDS: CYANOCOBALAMIN (B-12) 1000 MCG/1 ML VIAL IM ONE (17:13)
[2025-04-21] MEDS: HYDROcodone-ACET 5/325MG TAB PO PRN (20:12)
[2025-04-21] MEDS: ONDANSETRON HCL 4 MG/2 ML VIAL IV PRN (20:12)
[2025-04-21] MEDS ORDERED: SODIUM ZIRCONIUM CYCL 10 GM PAK PO SCH (22:00)
[2025-04-21] MEDS: LACTATED RINGER'S 1,000 ML IV SCH (22:16)
[2025-04-22] VITALS (13 sets, daily range): BP systolic 111–168; BP diastolic 62–92; PULSE 82–112; RESP 16–20; TEMP 97.5–98.8; O2SAT 96–100
[2025-04-22 06:01] LABS: Hematocrit 20.5 % (41.0-53.0); Hemoglobin 7.2 g/dL (13.5-17.5)
[2025-04-22 06:03] LABS: Mean Corpuscular Hemoglobin 35.9 pg (28.0-32.0); Mean Corpuscular Volume 101.7 fL (80.0-100.0); Nucleated Red Blood Cells % 0.1 %
[2025-04-22 06:23] LABS: Anion Gap 16 (5-15); Chloride 106 mmol/L (98-107); Sodium 140 mmol/L (136-145)
[2025-04-22 06:24] LABS: Calcium 9.2 mg/dL (8.7-10.4)
[2025-04-22 06:29] LABS: BUN/Creatinine Ratio 12.9 (10.0-20.0); Glucose 103 mg/dL (74-106)
[2025-04-22 06:31] LABS: Carbon Dioxide 18 mmol/L (20-31); Potassium 5.1 mmol/L (3.5-5.1)
[2025-04-22 06:33] LABS: Blood Urea Nitrogen 99 mg/dL (9-23)
[2025-04-22] MEDS: FUROSEMIDE 100 MG/10ML VIAL IV SCH (08:50)
[2025-04-22] MEDS: LIDOCAINE 5% TOPICAL PATCH TOP ONE (08:51)
[2025-04-22] MEDS: SODIUM BICARB 50mEq/50ml Vial 150 ML in D5W 5% 1,000 ML IV SCH (09:16)
[2025-04-22] MEDS: FUROSEMIDE 20 MG/2 ML VIAL IV ONE (10:15)
[2025-04-22] MEDS: ALBUTEROL SULF 2.5 MG/0.5ML(0.5%) NEB SOLN ONE (10:20)
[2025-04-22] MEDS: ALBUTEROL SULF 2.5 MG/0.5ML(0.5%) NEB SOLN NEB ONE (10:20)
[2025-04-22] MEDS: InsuLIN REG 1unit/0.01ml Soln (100units/ml) IV ONE (11:47)
[2025-04-22] MEDS: DEXTROSE (50%) 50ML SYRG IV ONE (11:48)
--- NOTE | 2025-04-22 12:49 | ECG ---
[facility] Test Date: 2025-04-20 Test Time: 16:27:56 Pat Name: RAUL DANIEL Department: Room: 0277 Gender: M Nailer Hand: : 1960 Requested By: FLORA PANIAGUA Order Number: [id number] Reading MD: Zachary Sykes Measurements Intervals Baker Rate: 76 P: 38 UT: 159 QRS: 1 QRSD: 99 T: 94 QT: 398 QTc: 448 Interpretive Statements Sinus rhythm Nonspecific T abnormalities, lateral leads Electronically Signed On 04-23-2025 17:18:01 PST by Zachary Sykes Please click the below link to view image of tracing.
[2025-04-22 13:07] LABS: Anti-Centromere B Antibody <0.2 AI (0.0-0.9); Anti-Jo-1 Antibody <0.2 AI (0.0-0.9); Anti-dsDNA Antibody <1 IU/mL (0-9); Antichromatin Antibody <0.2 AI (0.0-0.9); Antiscleroderma-70 Antibody <0.2 AI (0.0-0.9); Sjogren's Anti-SS-A Antibody <0.2 AI (0.0-0.9); Sjogren's Anti-SS-B Antibody <0.2 AI (0.0-0.9)
--- NOTE | 2025-04-22 13:21 | DVHPN2 ---
Progress Note Date Seen: Apr 22, 2025 Has the PT tested + for MRSA If YES, has PT been informed?: No Medical Necessity Reason Pt with a Central, PICC or Fol: Yes The following are medically ne: Torrez Catheter Reason for torrez catheter: Bladder Retention/Obstruc Subjective Patient reports: No new complaints Review of Systems: :Abnormal Objective vital signs Vital Sign Date Time Temp Pulse Resp B/P (MAP) Pulse Ox O2 Delivery O2 Flow Rate FiO2 04/22/25 12:35 98.3 112 20 168/87 (114) 98 98.3 04/22/25 10:20 Room Air* 0 21 Total Intake and Output 04/21/25 04/21/25 04/22/25 15:00 23:00 07:00 Intake Total 860 ml 450 ml Output Total 650 ml 700 ml Balance 210 ml -250 ml medications Current Medications Medications Dose Ordered Sig/Minna Route Start Time Stop Time Status Last Admin Dose Admin Atorvastatin Calcium 40 mg HS PO 04/20/25 22:00 04/21/25 22:21 40 MG Empaglifozin 10 mg DAILY PO 04/21/25 10:00 04/22/25 08:50 10 MG Metoprolol Succinate 25 mg DAILY PO 04/21/25 10:00 04/22/25 08:50 25 MG Patient Own Medication 1 tab DAILY PO 04/21/25 10:00 04/22/25 08:54 1 TAB Acetaminophen/ Hydrocodone Bitart 1 tab Q4HP PRN PO 04/20/25 21:15 04/21/25 20:12 1 TAB Ondansetron HCl 4 mg Q4HP PRN IV 04/20/25 21:15 04/22/25 09:26 4 MG Acetaminophen 650 mg Q6HP PRN PO 04/20/25 21:15 Sodium Bicarbonate 650 mg BID PO 04/20/25 22:00 Hold 04/21/25 12:56 650 MG Clonidine HCl 0.1 mg Q6HP PRN PO 04/21/25 01:15 04/21/25 01:17 0.1 MG Zirconium Oxide 10 gm BID PO 04/21/25 22:00 Hold Sodium Bicarbonate 150 ml/Dextrose 1,150 ml @ 100 mls/hr [id number] IV 04/22/25 07:15 04/22/25 09:16 100 MLS/HR Furosemide 80 mg BIDD IV 04/22/25 07:15 04/22/25 08:50 80 MG Examination: GENERAL:Abnormal, LUNGS:Abnormal, CVS:Abnormal, :Abnormal laboratory and microbiology Laboratory Tests 04/22/25 04:55 Test 04/22/25 04:55 Range/Units Serum Glucose 103 74-106 mg/dL Microbiology Date/Time Source Procedure Growth Status 04/21/25 10:32 Voided Urine Urine Culture - Preliminary Resulted Problem List/Assessment/Plan Problem List/Assessment/Plan Acute kidney injury due to obstruction and volume depletion baseline renal function was normal in 2022 b/l hydronephrosis and bladder mass hyperkalemia ( was on home potassium pills) metabolic acidosis PE on eliquis anemia HIV on retrovirals hyperkalemia protocol meds torrez catheter hematuria noted, PRBC ordered sodium bicarb drip lasix q 12 strict I/O urology consultation noted plan for cystoscopy tomorrow off AC sclerotic lumbar lesions . metastatic disease? echo noted rec PRBC to keep hb above 8.0 today sepsis w/u high complexity, guarded prognosis needs close monitoring and daily eval for possible renal replacement if fails medical therapy explained may require dialysis both acute or half-way, he agrees if required Plan discussed with: Patient My Orders My Orders Orders - LARRY SHOOK MD Procedure Category Date Status Time Cardiac DIET 04/22/25 Transmitted Diet-2gna,Lofat,Lochol Breakfast D5w 5% (Dextrose 5%) PHA 04/22/25 In Process W/Sodium Bicarb 50m 07:15 Furosemide Injection PHA 04/22/25 In Process (Lasix Injection) 07:15 LARRY SHOOK MD Apr 22, 2025 13:21
--- NOTE | 2025-04-22 14:46 | DVHPNRES ---
Progress Note Date Seen: Apr 22, 2025 Resident Creating Document: DENYS DIAMOND RESIDENT Has the PT tested + for MRSA If YES, has PT been informed?: No Medical Necessity Reason Pt with a Central, PICC or Fol: Yes The following are medically ne: Torrez Catheter Reason for torrez catheter: Bladder Retention/Obstruc Subjective Review of Systems Carlos Abdalla is a 64-year-old male with past medical history of CHF (EF 14%) , HTN, PE (on Eliquis), [place], CKD and HIV (1994, on antiretrovital therapy. The patient came to the [facility] ED with chief complain of 2 week of noticing bloody urine. He states that initially it was david blood male as turn into a pinkish color. He reports being on Eliquis due to a pulmonary embolism diagnosed last year. On further questioning, he reports unintentional weight lost of approximate 10punds. The patient reports 1 week of bilateral leg cramping, this prompted his visit to the ED. The patient denies chest pain or shortness for breath. In the ED the UA report hematuria and CT abdomen showed thickening of bladder wall and US of bladder showed a mass. The patient was admitted for further assessment and management. Past Medical History: hypertension, HIV, CKD. Past Surgical History: Hernia repair Social Hx: Family History Noncontributory. Smoke: <1 pack per day ALCOHOL: none. Drugs: Marijuana Lives:alone PCP: at [facility] course: On 04/21/25, The patient was examined and evaluated at bedside. Vital signs, labs, chart was reviewed. The patient reports improvement in hematuria. Urology is on board, they requested Torrez catheter and cystoscopy was schedule for tomorrow 04/22/25. Torrez catheter was placed draining clear urine. Due to CKD, nephrology is on board, patient was started and bicarb drip due to hyperkalemia, also hyperkalemia protocol was started. Due to low hemoglobin FOBT, type and screen was request. We will continue following the progress of this patient. On 04/22/25, The patient was examined and evaluated at bedside. Vital signs, labs, chart was reviewed. The patient reports hematuria. The patient was hyperkalemic this morning, hyperkalemia protocol was started and Lokelma was added Urology is on board, they rescheduled the cystoscopy to 04/23/25 and requested 1 RBC unit to improved Hb of 7.2mg/dl. We will continue following the progress of this patient. ROS: Constitutional: weight loss, no fever no chills. HEENT: Denies changes in vision and hearing. Respiratory: denies of cough, nasal congestion Cardiovascular: Denies chest discomfort or palpitations GI: denies abdominal, nausea, vomiting and diarrhea. : Hematuria, Denies dysuria and urinary frequency. Musculoskeletal: denies edema/ Skin: Denies rash and pruritus. Neurologic: denies dizziness Objective vital signs Vital Sign Date Time Temp Pulse Resp B/P (MAP) Pulse Ox O2 Delivery O2 Flow Rate FiO2 04/22/25 14:05 168/87 04/22/25 12:35 98.3 112 20 98 98.3 04/22/25 10:20 Room Air* 0 21 Total Intake and Output 04/21/25 04/21/25 04/22/25 15:00 23:00 07:00 Intake Total 860 ml 450 ml Output Total 650 ml 700 ml Balance 210 ml -250 ml medications Current Medications Medications Dose Ordered Sig/Minna Route Start Time Stop Time Status Last Admin Dose Admin Atorvastatin Calcium 40 mg HS PO 04/20/25 22:00 04/21/25 22:21 40 MG Empaglifozin 10 mg DAILY PO 04/21/25 10:00 04/22/25 08:50 10 MG Metoprolol Succinate 25 mg DAILY PO 04/21/25 10:00 04/22/25 08:50 25 MG Patient Own Medication 1 tab DAILY PO 04/21/25 10:00 04/22/25 08:54 1 TAB Acetaminophen/ Hydrocodone Bitart 1 tab Q4HP PRN PO 04/20/25 21:15 04/21/25 20:12 1 TAB Ondansetron HCl 4 mg Q4HP PRN IV 04/20/25 21:15 04/22/25 09:26 4 MG Acetaminophen 650 mg Q6HP PRN PO 04/20/25 21:15 Sodium Bicarbonate 650 mg BID PO 04/20/25 22:00 Hold 04/21/25 12:56 650 MG Clonidine HCl 0.1 mg Q6HP PRN PO 04/21/25 01:15 04/22/25 14:05 0.1 MG Zirconium Oxide 10 gm BID PO 04/21/25 22:00 Hold Sodium Bicarbonate 150 ml/Dextrose 1,150 ml @ 100 mls/hr [id number] IV 04/22/25 07:15 04/22/25 09:16 100 MLS/HR Furosemide 80 mg BIDD IV 04/22/25 07:15 04/22/25 08:50 80 MG Amlodipine Besylate 5 mg DAILY PO 04/22/25 13:30 04/22/25 14:02 5 MG Zirconium Oxide 10 gm DAILY PO 04/23/25 10:00 UNV Examination General Appearance: Cachectic, Alert, Oriented X3, Cooperative, No acute distress HEENT: Atraumatic, PERRLA, EOMI, Mucous membr. moist/pink Respiratory: Normal air movement Cardiovascular: Regular rate, Normal S1, Normal S2, No murmurs, no chest pain on palpation of the chest. Abdominal: Normal bowel sounds, Soft, No tenderness, No hepatospenomegaly, No masses : Costovertebral angle negative Extremities: No clubbing, No cyanosis, No edema, Normal pulses, No tenderness/swelling Skin: No breakdown, No significant lesion Neuro: Normal gait, Normal speech, Strength at 5/5 X4 ext, Normal tone, Sensation intact, Cranial nerves 3-12 NL, Reflexes 2+ Psych/Mental Status: Mental status NL, Mood NL laboratory and microbiology Laboratory Tests 04/22/25 14:01 04/22/25 04:55 Test 04/22/25 04:55 Range/Units Serum Glucose 103 74-106 mg/dL Microbiology Date/Time Source Procedure Growth Status 04/21/25 10:32 Voided Urine Urine Culture - Preliminary Resulted Problem List/Assessment/Plan Problem List/Assessment/Plan 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 CT abdomen: Bladder wall thickening Bladder US: Bladder mass Torrez catheter Urology consult: :Cystoscopy with TURBT TBA reschedule to 04/23/25 #ZHEN on CKD Stage V, due to obstructive #Acute azotemia possible obstructive #Acute Sterile pyuria #Bilateral hydronephrosis Crea 7.40 GFR 8 Nephrology consult Avoid nephrotoxic drugs #Acute Severe Megaloblastic Anemia Hb 7.2mg/dl 04/22/25 Type and screen Folic acid B12 levels 1 RBC unit #CHF with systolic heart failure EF 14% in 2022 New ECHO: EF 45% (2024) Meds reconciliation #Acute Hyperkalemia Hyperkalemia protocol Bicarbonate drip Lokelma 10mg po daily Monitor potassium levels. #Chronic Severe Protein-Calorie Malnutrition in the setting of possible neoplasia Nutritional consult. #Chronic Hypertensive heart disease with systolic heart failure Med reconciliation Metoprolol 25mg po daily #Chronic PE Hold Eliquis due to hematuria SCD applied. #Chronic HIV Biktarvy po daily. GI: pantoprazol DVT prophylaxis: eliquis on hold due to hematuria, SCD device Diet: renal diet, NPO after midnight for procedure. Code status: Full code PCP: [facility] Goals of care discussed with patient >30min. Case and plan discussed with Dr. Rogel. Plan discussed with: Patient My Orders My Orders Orders - DENYS DIAMOND RESIDENT Procedure Category Date Status Time Warm Compresses ORDERS 04/22/25 Transmitted 07:15 Discontinue Tele ANDREY 04/22/25 In Process 09:43 Transfer Orders XFER 04/22/25 Transmitted 09:43 Electrocardigram EKG 04/22/25 Logged 10:01 Sodium Zirconium PHA 04/23/25 Logged Cyclosilicate 10:00 Sequential ANDREY 04/22/25 In Process Compression Device 14:24 Visit Coding STANDARD RES Billing Provider: JAYDA HUMMEL MD Date of Service if different f: Apr 22, 2025 Common Visit Codes: [id number] INP/OBS CARE(HIGH) DENYS DIAMOND RESIDENT Apr 22, 2025 14:46
[2025-04-22 19:37] LABS: Chloride 103 mmol/L (98-107); Potassium 5.0 mmol/L (3.5-5.1); Sodium 137 mmol/L (136-145)
[2025-04-22 19:38] LABS: Anion Gap 16 (5-15)
[2025-04-22 19:39] LABS: Calcium 9.3 mg/dL (8.7-10.4)
[2025-04-22 19:44] LABS: BUN/Creatinine Ratio 14.1 (10.0-20.0)
[2025-04-22 20:07] LABS: Carbon Dioxide 18 mmol/L (20-31); Glucose 127 mg/dL (74-106)
[2025-04-22 20:08] LABS: Blood Urea Nitrogen 111 mg/dL (9-23)
[2025-04-22] MEDS: SODIUM ZIRCONIUM CYCL 10 GM PAK PO SCH (21:53)
[2025-04-23] VITALS (11 sets, daily range): BP systolic 141–157; BP diastolic 82–91; PULSE 91–110; RESP 16–20; TEMP 97.8–99.5; O2SAT 96–100
[2025-04-23 05:08] LABS: Hematocrit 21.5 % (37.5-51.0); Hemoglobin 7.0 g/dL (13.0-17.7); MCH 35.0 pg (26.6-33.0); MCHC 32.6 g/dL (31.5-35.7); MCV 108 fL (79-97); RBC 2.00 x10E6/uL (4.14-5.80); RDW 13.7 % (11.6-15.4); WBC 5.5 x10E3/uL (3.4-10.8)
[2025-04-23 06:09] LABS: Hemoglobin 8.8 g/dL (13.5-17.5); Mean Corpuscular Hemoglobin 34.4 pg (28.0-32.0)
[2025-04-23 06:11] LABS: Hematocrit 25.5 % (41.0-53.0); Mean Corpuscular Volume 99.4 fL (80.0-100.0); Nucleated Red Blood Cells % 0.1 %
[2025-04-23 06:20] LABS: Chloride 105 mmol/L (98-107); Sodium 139 mmol/L (136-145)
[2025-04-23 06:21] LABS: Anion Gap 17 (5-15); Calcium 9.3 mg/dL (8.7-10.4)
[2025-04-23 06:22] LABS: Carbon Dioxide 17 mmol/L (20-31); Potassium 5.2 mmol/L (3.5-5.1)
[2025-04-23 06:26] LABS: BUN/Creatinine Ratio 13.2 (10.0-20.0); Triglycerides 122 mg/dL (< 150)
[2025-04-23 06:28] LABS: Cholesterol 88 mg/dL (< 200)
[2025-04-23 06:36] LABS: Glucose 111 mg/dL (74-106); HDL Cholesterol 37 mg/dL (40-59)
[2025-04-23 06:37] LABS: Blood Urea Nitrogen 113 mg/dL (9-23)
[2025-04-23] MEDS: CALCIUM ACETATE 667 MG CAP PO SCH (08:00)
[2025-04-23] MEDS: ALBUTEROL SULF 2.5 MG/0.5ML(0.5%) NEB SOLN NEB ONE (08:28)
--- NOTE | 2025-04-23 09:12 | ECG ---
[facility] Test Date: 2025-04-22 Test Time: 10:57:47 Pat Name: RAUL DANIEL Department: Room: [facility] Gender: M Supervisor [employer]: TANI : 1960 Requested By: DENYS DIAMOND Order Number: [id number] Reading MD: Zachary Sykes Measurements Intervals [place] Rate: 104 P: 61 NJ: 135 QRS: -15 QRSD: 92 T: 135 QT: 321 QTc: 423 Interpretive Statements Sinus tachycardia Borderline left axis deviation Nonspecific T abnrm, anterolateral leads Electronically Signed On 04-23-2025 17:30:07 PST by Zachary Sykes Please click the below link to view image of tracing.
[2025-04-23] MEDS ORDERED: SODIUM ZIRCONIUM CYCL 10 GM PAK PO SCH (10:00)
[2025-04-23] MEDS ORDERED: MORPHINE SULFATE INJ 2 MG/ml SYRG IV PRN (10:15)
[2025-04-23] MEDS: MORPHINE SULFATE 4 MG/ML SYR/VIAL IV PRN (10:21)
[2025-04-23] MEDS: FUROSEMIDE 20 MG/2 ML VIAL IV ONE (10:23)
[2025-04-23] MEDS: DEXTROSE (50%) 50ML SYRG IV ONE (10:23)
[2025-04-23] MEDS: InsuLIN REG 1unit/0.01ml Soln (100units/ml) IV ONE (10:25)
--- NOTE | 2025-04-23 11:55 | DVH ---
CHEST RADIOGRAPH INDICATION: Marcelo catheter placement TECHNIQUE: Single frontal view of the chest was obtained COMPARISON: XY CHEST XRAY 1 VIEW on DOS: 04/20/25, XY CHEST PORTABLE on DOS: 12/29/22 FINDINGS: Lines and Tubes: Marcelo catheter in place below the right clavicle. No pneumothorax Lungs: No focal consolidation. Pleura: No effusion. No pneumothorax. Cardiomediastinal contours: Unremarkable Bones: No acute osseous abnormality. IMPRESSION: 1. Marcelo catheter in place from the right with the tip just below the right clavicle. 2. No pneumothorax
--- NOTE | 2025-04-23 12:16 | DVHPN2 ---
Progress Note - Dictate Date Seen: Apr 23, 2025 Has the PT tested + for MRSA If YES, has PT been informed?: No Medical Necessity Reason Pt with a Central, PICC or Fol: Yes The following are medically ne: Torrez Catheter Reason for torrez catheter: Bladder Retention/Obstruc vital signs Vital Sign Date Time Temp Pulse Resp B/P (MAP) Pulse Ox O2 Delivery O2 Flow Rate FiO2 04/23/25 10:23 148/82 04/23/25 10:21 94 20 04/23/25 08:41 100 04/23/25 08:30 98.6 98.6 04/23/25 08:29 Room Air* 0 21 Total Intake and Output 04/22/25 04/22/25 04/23/25 15:00 23:00 07:00 Intake Total 1460 ml 400 ml Output Total 1800 ml 1200 ml Balance -340 ml -800 ml medications Current Medications Medications Dose Ordered Sig/Minna Route Start Time Stop Time Status Last Admin Dose Admin Atorvastatin Calcium 40 mg HS PO 04/20/25 22:00 04/22/25 21:52 40 MG Empaglifozin 10 mg DAILY PO 04/21/25 10:00 04/22/25 08:50 10 MG Metoprolol Succinate 25 mg DAILY PO 04/21/25 10:00 04/22/25 08:50 25 MG Patient Own Medication 1 tab DAILY PO 04/21/25 10:00 04/22/25 08:54 1 TAB Acetaminophen/ Hydrocodone Bitart 1 tab Q4HP PRN PO 04/20/25 21:15 04/22/25 16:04 1 TAB Ondansetron HCl 4 mg Q4HP PRN IV 04/20/25 21:15 04/23/25 04:10 4 MG Acetaminophen 650 mg Q6HP PRN PO 04/20/25 21:15 Sodium Bicarbonate 650 mg BID PO 04/20/25 22:00 Hold 04/21/25 12:56 650 MG Clonidine HCl 0.1 mg Q6HP PRN PO 04/21/25 01:15 04/22/25 14:05 0.1 MG Sodium Bicarbonate 150 ml/Dextrose 1,150 ml @ 100 mls/hr [id number] IV 04/22/25 07:15 04/23/25 06:27 100 MLS/HR Furosemide 80 mg BIDD IV 04/22/25 07:15 04/23/25 05:51 80 MG Amlodipine Besylate 5 mg DAILY PO 04/22/25 13:30 04/22/25 14:02 5 MG Zirconium Oxide 10 gm BID PO 04/22/25 21:00 04/25/25 20:59 04/22/25 21:53 10 GM Calcium Acetate 667 mg TIDWMEALS PO 04/23/25 08:00 Morphine Sulfate 2 mg Q4HPRN PRN IV 04/23/25 10:15 UNV Morphine Sulfate 2 mg Q4HPRN PRN IV 04/23/25 10:15 04/23/25 10:21 2 MG laboratory and microbiology Laboratory Tests 04/23/25 11:22 04/23/25 05:15 Test 04/23/25 05:15 Range/Units Serum Glucose 111 H 74-106 mg/dL Assessment/Plan planned for dialysis today, TURBT cancelled for today . will proceed Sunday morning Plan discussed with: Patient, Other EDYTA MORSE NP Apr 23, 2025 12:16
[2025-04-23 13:08] LABS: CD4/CD8 Ratio 1.29 (0.92-3.72)
--- NOTE | 2025-04-23 15:14 | DVHPN2 ---
Progress Note Date Seen: Apr 23, 2025 Has the PT tested + for MRSA If YES, has PT been informed?: No Medical Necessity Reason Pt with a Central, PICC or Fol: Yes The following are medically ne: Torrez Catheter Reason for torrez catheter: Bladder Retention/Obstruc Subjective Patient reports: Feels better Objective vital signs Vital Sign Date Time Temp Pulse Resp B/P (MAP) Pulse Ox O2 Delivery O2 Flow Rate FiO2 04/23/25 10:51 110 20 142/84 04/23/25 10:00 98 Room Air* 0 21 04/23/25 08:30 98.6 98.6 Total Intake and Output 04/22/25 04/22/25 04/23/25 15:00 23:00 07:00 Intake Total 1460 ml 400 ml Output Total 1800 ml 1200 ml Balance -340 ml -800 ml medications Current Medications Medications Dose Ordered Sig/Minna Route Start Time Stop Time Status Last Admin Dose Admin Atorvastatin Calcium 40 mg HS PO 04/20/25 22:00 04/22/25 21:52 40 MG Empaglifozin 10 mg DAILY PO 04/21/25 10:00 04/22/25 08:50 10 MG Metoprolol Succinate 25 mg DAILY PO 04/21/25 10:00 04/22/25 08:50 25 MG Patient Own Medication 1 tab DAILY PO 04/21/25 10:00 04/22/25 08:54 1 TAB Acetaminophen/ Hydrocodone Bitart 1 tab Q4HP PRN PO 04/20/25 21:15 04/22/25 16:04 1 TAB Ondansetron HCl 4 mg Q4HP PRN IV 04/20/25 21:15 04/23/25 04:10 4 MG Acetaminophen 650 mg Q6HP PRN PO 04/20/25 21:15 Sodium Bicarbonate 650 mg BID PO 04/20/25 22:00 Hold 04/21/25 12:56 650 MG Clonidine HCl 0.1 mg Q6HP PRN PO 04/21/25 01:15 04/22/25 14:05 0.1 MG Sodium Bicarbonate 150 ml/Dextrose 1,150 ml @ 100 mls/hr [id number] IV 04/22/25 07:15 04/23/25 06:27 100 MLS/HR Furosemide 80 mg BIDD IV 04/22/25 07:15 04/23/25 05:51 80 MG Amlodipine Besylate 5 mg DAILY PO 04/22/25 13:30 04/22/25 14:02 5 MG Zirconium Oxide 10 gm BID PO 04/22/25 21:00 04/25/25 20:59 04/22/25 21:53 10 GM Calcium Acetate 667 mg TIDWMEALS PO 04/23/25 08:00 Morphine Sulfate 2 mg Q4HPRN PRN IV 04/23/25 10:15 UNV Morphine Sulfate 2 mg Q4HPRN PRN IV 04/23/25 10:15 04/23/25 10:21 2 MG Examination: GENERAL:Abnormal, CVS:Normal, ABDOMEN:Normal, :Abnormal laboratory and microbiology Laboratory Tests 04/23/25 11:22 04/23/25 05:15 Test 04/23/25 05:15 Range/Units Serum Glucose 111 H 74-106 mg/dL Microbiology Date/Time Source Procedure Growth Status 04/21/25 10:32 Voided Urine Urine Culture - Final Complete Problem List/Assessment/Plan Problem List/Assessment/Plan Acute kidney injury due to obstruction and volume depletion baseline renal function was normal in 2022 b/l hydronephrosis and bladder mass hyperkalemia ( was on home potassium pills) metabolic acidosis PE on eliquis anemia HIV on retrovirals Although patient continues to have increase urinary output he has poor metabolic clearance with worsening azotemia recommended hemodialysis treatment Status post temporary dialysis catheter Hemodialysis nurse at bedside for dialysis treatment Discontinue sodium bicarbonate drip, with a bicarbonate lasix q day strict I/O urology consultation noted plan for cystoscopy sunday AC sclerotic lumbar lesions . metastatic disease? echo noted Monitor H&H and give PRBC p.r.n. if hemoglobin less than 8.0 Plan discussed with: Patient My Orders My Orders Orders - LARRY SHOOK MD Procedure Category Date Status Time Communication Order ORDERS 04/22/25 Transmitted 20:59 Sodium Zirconium PHA 04/22/25 In Process Cyclosilicate 21:00 Calcium Acetate PHA 04/23/25 In Process Capsule (Phoslo 08:00 LARRY SHOOK MD Apr 23, 2025 15:14
--- NOTE | 2025-04-23 16:48 | DVHNC2 ---
Central Line Recorder of insertion practice: Administrator Of Home Health Occupation of coding specialist: Other (Resident) Indication: Other (Hemodialysis) Room prepared for procedure: Yes Administrator Of Home Health performed hand hygien: Yes Maximal sterile barrier precau: Mask/Eye shield, Sterile gown, Cap, Sterlie gloves, Large sterlie drape Skin Preparation: Chlorhexidine gluconate Skin preparation completely dr: Yes Insertion site: Right Central line catheter type: Dialysis non-tunneled Number of lumens: 2 Antiseptic ointment applied to: Yes Post Assessment: Chest X-Ray, Proper placement, No Pneumothorax Informed consent obtained: Yes Risks/benefits/alt described: Yes Date of Service: Apr 23, 2025 Billing Provider: JAYDA HUMMEL MD Common Visit Codes: PROCEDURE ONLY ALEKSANDR CEJA RESIDENT Apr 23, 2025 16:48
--- NOTE | 2025-04-23 17:07 | DVHPNRES ---
Progress Note Date Seen: Apr 23, 2025 Resident Creating Document: DENYS DIAMOND RESIDENT Has the PT tested + for MRSA If YES, has PT been informed?: No Medical Necessity Reason Pt with a Central, PICC or Fol: Yes The following are medically ne: Torrez Catheter Reason for torrez catheter: Bladder Retention/Obstruc Subjective Review of Systems Carlos Abdalla is a 64-year-old male with past medical history of CHF (EF 14%) , HTN, PE (on Eliquis), [place], CKD and HIV (1994, on antiretrovital therapy. The patient came to the [facility] ED with chief complain of 2 week of noticing bloody urine. He states that initially it was david blood male as turn into a pinkish color. He reports being on Eliquis due to a pulmonary embolism diagnosed last year. On further questioning, he reports unintentional weight lost of approximate 10punds. The patient reports 1 week of bilateral leg cramping, this prompted his visit to the ED. The patient denies chest pain or shortness for breath. In the ED the UA report hematuria and CT abdomen showed thickening of bladder wall and US of bladder showed a mass. The patient was admitted for further assessment and management. Past Medical History: hypertension, HIV, CKD. Past Surgical History: Hernia repair Social Hx: Family History Noncontributory. Smoke: <1 pack per day ALCOHOL: none. Drugs: Marijuana Lives:alone PCP: at [facility] course: On 04/21/25, The patient was examined and evaluated at bedside. Vital signs, labs, chart was reviewed. The patient reports improvement in hematuria. Urology is on board, they requested Torrez catheter and cystoscopy was schedule for tomorrow 04/22/25. Torrez catheter was placed draining clear urine. Due to CKD, nephrology is on board, patient was started and bicarb drip due to hyperkalemia, also hyperkalemia protocol was started. Due to low hemoglobin FOBT, type and screen was request. We will continue following the progress of this patient. On 04/22/25, The patient was examined and evaluated at bedside. Vital signs, labs, chart was reviewed. The patient reports hematuria. The patient was hyperkalemic this morning, hyperkalemia protocol was started and Lokelma was added Urology is on board, they rescheduled the cystoscopy to 04/23/25 and requested 1 RBC unit to improved Hb of 7.2mg/dl. We will continue following the progress of this patient. On 04/23/25, The patient was examined and evaluated at bedside. Vital signs, labs, chart was reviewed. The patient was evaluated for nephrology, they recommended hemodyalisis, a Marcelo catheter was placed and hemodyalisis was done. Urology is on board, they recommend cytoscopy, this has been rescheduled due to hemodialysis. We will continue following the progress of this patient. ROS: Constitutional: weight loss, no fever no chills. HEENT: Denies changes in vision and hearing. Respiratory: denies of cough, nasal congestion Cardiovascular: Denies chest discomfort or palpitations GI: denies abdominal, nausea, vomiting and diarrhea. : Hematuria, Denies dysuria and urinary frequency. Musculoskeletal: denies edema/ Skin: Denies rash and pruritus. Neurologic: denies dizziness Objective vital signs Vital Sign Date Time Temp Pulse Resp B/P (MAP) Pulse Ox O2 Delivery O2 Flow Rate FiO2 04/23/25 16:41 99.5 95 16 157/90 (112) 98 99.5 04/23/25 10:00 Room Air* 0 21 Total Intake and Output 04/22/25 04/22/25 04/23/25 15:00 23:00 07:00 Intake Total 1460 ml 400 ml Output Total 1800 ml 1200 ml Balance -340 ml -800 ml medications Current Medications Medications Dose Ordered Sig/Minna Route Start Time Stop Time Status Last Admin Dose Admin Atorvastatin Calcium 40 mg HS PO 04/20/25 22:00 04/22/25 21:52 40 MG Empaglifozin 10 mg DAILY PO 04/21/25 10:00 04/22/25 08:50 10 MG Metoprolol Succinate 25 mg DAILY PO 04/21/25 10:00 04/22/25 08:50 25 MG Patient Own Medication 1 tab DAILY PO 04/21/25 10:00 04/22/25 08:54 1 TAB Acetaminophen/ Hydrocodone Bitart 1 tab Q4HP PRN PO 04/20/25 21:15 04/22/25 16:04 1 TAB Ondansetron HCl 4 mg Q4HP PRN IV 04/20/25 21:15 04/23/25 04:10 4 MG Acetaminophen 650 mg Q6HP PRN PO 04/20/25 21:15 Clonidine HCl 0.1 mg Q6HP PRN PO 04/21/25 01:15 04/22/25 14:05 0.1 MG Amlodipine Besylate 5 mg DAILY PO 04/22/25 13:30 04/22/25 14:02 5 MG Zirconium Oxide 10 gm BID PO 04/22/25 21:00 04/25/25 20:59 04/22/25 21:53 10 GM Calcium Acetate 667 mg TIDWMEALS PO 04/23/25 08:00 Morphine Sulfate 2 mg Q4HPRN PRN IV 04/23/25 10:15 UNV Morphine Sulfate 2 mg Q4HPRN PRN IV 04/23/25 10:15 04/23/25 10:21 2 MG Furosemide 80 mg DAILY IV 04/24/25 10:00 Sodium Bicarbonate 650 mg TID PO 04/23/25 22:00 Examination Examination General Appearance: Cachectic, Alert, Oriented X3, Cooperative, No acute distress HEENT: Atraumatic, PERRLA, EOMI, Mucous membr. moist/pink Respiratory: Normal air movement Cardiovascular: Regular rate, Normal S1, Normal S2, No murmurs, no chest pain on palpation of the chest. Abdominal: Normal bowel sounds, Soft, No tenderness, No hepatospenomegaly, No masses : Costovertebral angle negative. Torrez catheter in place, with hematuria. Extremities: No clubbing, No cyanosis, No edema, Normal pulses, No tenderness/swelling Skin: No breakdown, No significant lesion Neuro: Normal gait, Normal speech, Strength at 5/5 X4 ext, Normal tone, Sensation intact, Cranial nerves 3-12 NL, Reflexes 2+ Psych/Mental Status: Mental status NL, Mood NL laboratory and microbiology Laboratory Tests 04/23/25 11:22 04/23/25 05:15 Test 04/23/25 05:15 Range/Units Serum Glucose 111 H 74-106 mg/dL Microbiology Date/Time Source Procedure Growth Status 04/21/25 10:32 Voided Urine Urine Culture - Final Complete Problem List/Assessment/Plan Problem List/Assessment/Plan 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 CT abdomen: Bladder wall thickening Bladder US: Bladder mass Torrez catheter Urology consult: :Cystoscopy with TURBT TBA reschedule to 04/23/25 #ZHEN on CKD Stage V, due to obstructive #Acute azotemia possible obstructive #Acute Sterile pyuria #Bilateral hydronephrosis Crea 7.40 GFR 8 Nephrology consult: Hemodyalisis 04/23/25 Avoid nephrotoxic drugs #Acute Severe Megaloblastic Anemia Hb 7.2mg/dl 04/22/25 Type and screen Folic acid B12 levels 1 RBC unit #CHF with systolic heart failure EF 14% in 2022 New ECHO: EF 45% (2024) Meds reconciliation #Acute Hyperkalemia Hyperkalemia protocol Bicarbonate drip Lokelma 10mg po daily Monitor potassium levels. #Chronic Severe Protein-Calorie Malnutrition in the setting of possible neoplasia Nutritional consult. #Chronic Hypertensive heart disease with systolic heart failure Med reconciliation Metoprolol 25mg po daily #Chronic PE Hold Eliquis due to hematuria SCD applied. #Chronic HIV Biktarvy po daily. GI: pantoprazol DVT prophylaxis: eliquis on hold due to hematuria, SCD device Diet: renal diet, NPO after midnight for procedure. Code status: Full code PCP: [facility] Goals of care discussed with patient >30min. Case and plan discussed with Dr. Rogel. Plan discussed with: Patient My Orders My Orders Orders - DENYS DIAMOND Procedure Category Date Status Time Stool Occult Blood LAB 04/23/25 Logged 21:15 Electrocardigram EKG 04/23/25 Logged 06:59 Chest Xray 1 View XY 04/23/25 Resulted 10:26 Visit Coding STANDARD RES Billing Provider: JAYDA HUMMEL MD Date of Service if different f: Apr 23, 2025 Common Visit Codes: [id number] INP/OBS CARE(HIGH) DENYS DIAMOND RESIDENT Apr 23, 2025 17:07
[2025-04-23] MEDS: SODIUM CHL 0.9% 1000 ML BAG XX ONE (18:15)
[2025-04-23] MEDS: SODIUM BICARBONATE 650 MG TAB PO SCH (21:26)
[2025-04-24] VITALS (9 sets, daily range): BP systolic 123–155; BP diastolic 74–91; PULSE 82–100; RESP 16–20; TEMP 98.2–99.5; O2SAT 92–99
[2025-04-24] MEDS: MELATONIN 5 MG TAB PO ONE (02:14)
[2025-04-24] MEDS: POLYETHYLENE GLYCOL 17 GM PWDR PO ONE (02:15)
[2025-04-24] MEDS: SODIUM CHL 0.9% 1000 ML BAG XX ONE (07:00)
[2025-04-24 07:07] LABS: Nucleated Red Blood Cells % 0.1 %
[2025-04-24 07:09] LABS: Total Iron Binding Capacity 282.0 ug/dL (250-425)
[2025-04-24 07:10] LABS: Hematocrit 23.4 % (41.0-53.0); Hemoglobin 8.3 g/dL (13.5-17.5); Mean Corpuscular Hemoglobin 35.0 pg (28.0-32.0); Mean Corpuscular Volume 99.2 fL (80.0-100.0)
[2025-04-24 07:12] LABS: Anion Gap 17 (5-15); Carbon Dioxide 24 mmol/L (20-31); Chloride 99 mmol/L (98-107); Potassium 4.8 mmol/L (3.5-5.1); Sodium 140 mmol/L (136-145)
[2025-04-24 07:13] LABS: Calcium 9.5 mg/dL (8.7-10.4)
[2025-04-24 07:18] LABS: BUN/Creatinine Ratio 9.4 (10.0-20.0)
[2025-04-24 07:19] LABS: Blood Urea Nitrogen 63 mg/dL (9-23); Glucose 114 mg/dL (74-106)
[2025-04-24 07:21] LABS: Iron 30.0 ug/dL (65-175)
[2025-04-24] MEDS: FUROSEMIDE 100 MG/10ML VIAL IV SCH (09:51)
--- NOTE | 2025-04-24 10:35 | DVHPNRES ---
Progress Note Date Seen: Apr 24, 2025 Resident Creating Document: DENYS DIAMOND RESIDENT Has the PT tested + for MRSA If YES, has PT been informed?: No Medical Necessity Reason Pt with a Central, PICC or Fol: Yes The following are medically ne: Torrez Catheter Reason for torrez catheter: Bladder Retention/Obstruc Subjective Review of Systems Review of Systems Carlos Abdalla is a 64-year-old male with past medical history of CHF (EF 14%) , HTN, PE (on Eliquis), [place], CKD and HIV (1994, on antiretrovital therapy. The patient came to the [facility] ED with chief complain of 2 week of noticing bloody urine. He states that initially it was david blood male as turn into a pinkish color. He reports being on Eliquis due to a pulmonary embolism diagnosed last year. On further questioning, he reports unintentional weight lost of approximate 10punds. The patient reports 1 week of bilateral leg cramping, this prompted his visit to the ED. The patient denies chest pain or shortness for breath. In the ED the UA report hematuria and CT abdomen showed thickening of bladder wall and US of bladder showed a mass. The patient was admitted for further assessment and management. Past Medical History: hypertension, HIV, CKD. Past Surgical History: Hernia repair Social Hx: Family History Noncontributory. Smoke: <1 pack per day ALCOHOL: none. Drugs: Marijuana Lives:alone PCP: at [facility] course: On 04/21/25, The patient was examined and evaluated at bedside. Vital signs, labs, chart was reviewed. The patient reports improvement in hematuria. Urology is on board, they requested Torrez catheter and cystoscopy was schedule for tomorrow 04/22/25. Torrez catheter was placed draining clear urine. Due to CKD, nephrology is on board, patient was started and bicarb drip due to hyperkalemia, also hyperkalemia protocol was started. Due to low hemoglobin FOBT, type and screen was request. We will continue following the progress of this patient. On 04/22/25, The patient was examined and evaluated at bedside. Vital signs, labs, chart was reviewed. The patient reports hematuria. The patient was hyperkalemic this morning, hyperkalemia protocol was started and Lokelma was added Urology is on board, they rescheduled the cystoscopy to 04/23/25 and requested 1 RBC unit to improved Hb of 7.2mg/dl. We will continue following the progress of this patient. On 04/23/25, The patient was examined and evaluated at bedside. Vital signs, labs, chart was reviewed. The patient was evaluated for nephrology, they recommended hemodyalisis, a Marcelo catheter was placed and hemodyalisis was done. Urology is on board, they recommend cytoscopy, this has been rescheduled due to hemodialysis. We will continue following the progress of this patient. On 04/24/25, The patient was examined and evaluated at bedside. Vital signs, labs, chart was reviewed. Nephroology is Urology is on board, Hemodyalisis was performed yesterday without complication via Marcelo catheter. Urology is on board, cystoscopy was recommended and that was re- scheduled to Sunday04/27/25. Today, the Torrez catheter continues draining hematuria with clots, a 3-way Torrez with continues irrigation was placed. We will continue following the progress of this patient closely. ROS: Constitutional: weight loss, no fever no chills. HEENT: Denies changes in vision and hearing. Respiratory: denies of cough, nasal congestion Cardiovascular: Denies chest discomfort or palpitations GI: denies abdominal, nausea, vomiting and diarrhea. : Hematuria, Denies dysuria and urinary frequency. Musculoskeletal: denies edema/ Skin: Denies rash and pruritus. Neurologic: denies dizziness Objective vital signs Vital Sign Date Time Temp Pulse Resp B/P (MAP) Pulse Ox O2 Delivery O2 Flow Rate FiO2 04/24/25 09:53 141/76 04/24/25 09:52 97 04/24/25 09:00 98.7 19 97 98.7 04/23/25 20:00 Room Air* 0 21 Total Intake and Output 04/23/25 04/23/25 04/24/25 15:00 23:00 07:00 Intake Total 280 ml 240 ml Output Total 900 ml 900 ml Balance -620 ml -660 ml medications Current Medications Medications Dose Ordered Sig/Minna Route Start Time Stop Time Status Last Admin Dose Admin Atorvastatin Calcium 40 mg HS PO 04/20/25 22:00 04/23/25 21:26 40 MG Empaglifozin 10 mg DAILY PO 04/21/25 10:00 04/24/25 09:53 10 MG Metoprolol Succinate 25 mg DAILY PO 04/21/25 10:00 04/24/25 09:52 25 MG Patient Own Medication 1 tab DAILY PO 04/21/25 10:00 04/22/25 08:54 1 TAB Acetaminophen/ Hydrocodone Bitart 1 tab Q4HP PRN PO 04/20/25 21:15 04/23/25 22:47 1 TAB Ondansetron HCl 4 mg Q4HP PRN IV 04/20/25 21:15 04/24/25 10:04 4 MG Acetaminophen 650 mg Q6HP PRN PO 04/20/25 21:15 Clonidine HCl 0.1 mg Q6HP PRN PO 04/21/25 01:15 04/22/25 14:05 0.1 MG Amlodipine Besylate 5 mg DAILY PO 04/22/25 13:30 04/24/25 09:53 5 MG Zirconium Oxide 10 gm BID PO 04/22/25 21:00 04/25/25 20:59 04/24/25 09:53 10 GM Calcium Acetate 667 mg TIDWMEALS PO 04/23/25 08:00 04/24/25 09:51 667 MG Morphine Sulfate 2 mg Q4HPRN PRN IV 04/23/25 10:15 UNV Morphine Sulfate 2 mg Q4HPRN PRN IV 04/23/25 10:15 04/24/25 06:38 2 MG Furosemide 80 mg DAILY IV 04/24/25 10:00 04/24/25 09:51 80 MG Sodium Bicarbonate 650 mg TID PO 04/23/25 22:00 04/24/25 05:47 650 MG Lidocaine 1 patch DAILY TOP 04/25/25 10:00 Examination General Appearance: Cachectic, Alert, Oriented X3, Cooperative, No acute distress HEENT: Atraumatic, PERRLA, EOMI, Mucous membr. moist/pink Respiratory: Normal air movement Cardiovascular: Regular rate, Normal S1, Normal S2, No murmurs, no chest pain on palpation of the chest. Abdominal: Normal bowel sounds, Soft, No tenderness, No hepatospenomegaly, No masses : Costovertebral angle negative. Torrez catheter in place, with hematuria. Extremities: No clubbing, No cyanosis, No edema, Normal pulses, No tenderness/swelling Skin: No breakdown, No significant lesion Neuro: Normal gait, Normal speech, Strength at 5/5 X4 ext, Normal tone, Sensation intact, Cranial nerves 3-12 NL, Reflexes 2+ Psych/Mental Status: Mental status NL, Mood NL laboratory and microbiology Laboratory Tests 04/24/25 05:00 Test 04/24/25 05:00 Range/Units Serum Glucose 114 H 74-106 mg/dL Microbiology Date/Time Source Procedure Growth Status 04/21/25 10:32 Voided Urine Urine Culture - Final Complete Problem List/Assessment/Plan Problem List/Assessment/Plan 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 CT abdomen: Bladder wall thickening Bladder US: Bladder mass Torrez catheter Urology consult: :Cystoscopy with TURBT TBA reschedule to 04/23/25 #ZHEN on CKD Stage V, due to obstructive #Acute azotemia possible obstructive #Acute Sterile pyuria #Bilateral hydronephrosis Crea 7.40 GFR 8 Nephrology consult: Hemodyalisis 04/23/25 Avoid nephrotoxic drugs #Acute Severe Megaloblastic Anemia Hb 7.2mg/dl 04/22/25 Type and screen Folic acid B12 levels 1 RBC unit #CHF with systolic heart failure EF 14% in 2022 New ECHO: EF 45% (2024) Meds reconciliation #Acute Hyperkalemia Hyperkalemia protocol Bicarbonate drip Lokelma 10mg po daily Monitor potassium levels. #Chronic Severe Protein-Calorie Malnutrition in the setting of possible neoplasia Nutritional consult. #Chronic Hypertensive heart disease with systolic heart failure Med reconciliation Metoprolol 25mg po daily #Chronic PE Hold Eliquis due to hematuria SCD applied. #Chronic HIV Biktarvy po daily. GI: pantoprazol DVT prophylaxis: eliquis on hold due to hematuria, SCD device Diet: renal diet. Code status: Full code PCP: [facility] [place] Goals of care discussed with patient >30min. Case and plan discussed with Dr. Rogel. Plan discussed with: Patient My Orders My Orders Orders - DENYS DIAMOND RESIDENT Procedure Category Date Status Time [address] Way Torrez ANDREY 04/24/25 In Process 10:09 Lidocaine 5% Topical PHA 04/25/25 In Process Patch (Lidoderm 5% 10:00 Warm Compresses ORDERS 04/24/25 Transmitted 10:09 Visit Coding STANDARD RES Billing Provider: JAYDA HUMMEL MD Date of Service if different f: Apr 24, 2025 Common Visit Codes: [id number] INP/OBS CARE(HIGH) DENYS DIAMOND RESIDENT Apr 24, 2025 10:35
[2025-04-24 10:42] LABS: Hepatitis B Surface Antigen Negative (Negative)
[2025-04-24] MEDS: LIDOCAINE 2% TOPICAL JELLY 5 ML URJT TOP ONE (11:21)
[2025-04-24 11:23] LABS: Hepatitis C Antibody Negative (Negative)
--- NOTE | 2025-04-24 14:33 | DVHPN2 ---
Progress Note Date Seen: Apr 24, 2025 Has the PT tested + for MRSA If YES, has PT been informed?: No Medical Necessity Reason Pt with a Central, PICC or Fol: Yes The following are medically ne: Torrez Catheter Reason for torrez catheter: Bladder Retention/Obstruc Objective vital signs Vital Sign Date Time Temp Pulse Resp B/P (MAP) Pulse Ox O2 Delivery O2 Flow Rate FiO2 04/24/25 13:00 98.5 91 18 134/83 (100) 97 98.5 04/23/25 20:00 Room Air* 0 21 Total Intake and Output 04/23/25 04/23/25 04/24/25 15:00 23:00 07:00 Intake Total 280 ml 240 ml Output Total 900 ml 900 ml Balance -620 ml -660 ml medications Current Medications Medications Dose Ordered Sig/Minna Route Start Time Stop Time Status Last Admin Dose Admin Atorvastatin Calcium 40 mg HS PO 04/20/25 22:00 04/23/25 21:26 40 MG Empaglifozin 10 mg DAILY PO 04/21/25 10:00 04/24/25 09:53 10 MG Metoprolol Succinate 25 mg DAILY PO 04/21/25 10:00 04/24/25 09:52 25 MG Patient Own Medication 1 tab DAILY PO 04/21/25 10:00 04/22/25 08:54 1 TAB Acetaminophen/ Hydrocodone Bitart 1 tab Q4HP PRN PO 04/20/25 21:15 04/23/25 22:47 1 TAB Ondansetron HCl 4 mg Q4HP PRN IV 04/20/25 21:15 04/24/25 10:04 4 MG Acetaminophen 650 mg Q6HP PRN PO 04/20/25 21:15 Clonidine HCl 0.1 mg Q6HP PRN PO 04/21/25 01:15 04/22/25 14:05 0.1 MG Amlodipine Besylate 5 mg DAILY PO 04/22/25 13:30 04/24/25 09:53 5 MG Zirconium Oxide 10 gm BID PO 04/22/25 21:00 04/25/25 20:59 04/24/25 09:53 10 GM Calcium Acetate 667 mg TIDWMEALS PO 04/23/25 08:00 04/24/25 12:14 667 MG Morphine Sulfate 2 mg Q4HPRN PRN IV 04/23/25 10:15 UNV Morphine Sulfate 2 mg Q4HPRN PRN IV 04/23/25 10:15 04/24/25 06:38 2 MG Furosemide 80 mg DAILY IV 04/24/25 10:00 04/24/25 09:51 80 MG Sodium Bicarbonate 650 mg TID PO 04/23/25 22:00 04/24/25 05:47 650 MG Lidocaine 1 patch DAILY TOP 04/25/25 10:00 Examination: GENERAL:Abnormal, CVS:Normal, :Abnormal laboratory and microbiology Laboratory Tests 04/24/25 05:00 Test 04/24/25 05:00 Range/Units Serum Glucose 114 H 74-106 mg/dL Microbiology Date/Time Source Procedure Growth Status 04/21/25 10:32 Voided Urine Urine Culture - Final Complete Problem List/Assessment/Plan Problem List/Assessment/Plan Acute kidney injury due to obstruction and volume depletion baseline renal function was normal in 2022 b/l hydronephrosis and bladder mass hyperkalemia ( was on home potassium pills) metabolic acidosis PE on eliquis anemia HIV on retrovirals Status post temporary dialysis catheter yesterday tolerated first HD yesterday Hemodialysis today tentatively lasix q day strict I/O CBI started today urology consultation noted plan for cystoscopy sunday AC sclerotic lumbar lesions . metastatic disease? echo noted Monitor H&H and give PRBC p.r.n. if hemoglobin less than 8.0 Plan discussed with: Patient My Orders My Orders Orders - LARRY SHOOK MD Procedure Category Date Status Time Furosemide Injection PHA 04/24/25 In Process (Lasix Injection) 10:00 Sodium Bicarb Tab PHA 04/23/25 In Process 22:00 Hemodialysis Orders ORDERS 04/23/25 Transmitted 12:00 Dialysis Nursing ANDREY 04/24/25 In Process Message 07:00 Document Fluid Input ANDREY 04/24/25 In Process And Outpu 07:00 Hemodialysis Orders ORDERS 04/24/25 Transmitted 07:41 LARRY SHOOK MD Apr 24, 2025 14:33
[2025-04-24] MEDS ORDERED: ALBUMIN 25% 100 ML IV ONE (20:45)
[2025-04-25] VITALS (12 sets, daily range): BP systolic 106–148; BP diastolic 61–87; PULSE 81–106; RESP 16–20; TEMP 98–99.3; O2SAT 95–100
[2025-04-25] MEDS: LIDOCAINE 5% TOPICAL PATCH TOP SCH (09:55)
--- NOTE | 2025-04-25 14:28 | DVHPN2 ---
Progress Note Date Seen: Apr 25, 2025 Has the PT tested + for MRSA If YES, has PT been informed?: No Medical Necessity Reason Pt with a Central, PICC or Fol: Yes The following are medically ne: Torrez Catheter Reason for torrez catheter: Bladder Retention/Obstruc Subjective Changes from previous H/P or p: Changes (on CBI) Review of Systems: :Abnormal Objective vital signs Vital Sign Date Time Temp Pulse Resp B/P (MAP) Pulse Ox O2 Delivery O2 Flow Rate FiO2 04/25/25 12:52 98.0 83 19 142/87 (105) 96 98.0 04/25/25 10:00 Room Air 0.0 04/25/25 10:00 21 Total Intake and Output 04/24/25 04/24/25 04/25/25 15:00 23:00 07:00 Intake Total 690 ml 240 ml Output Total 2000 ml 900 ml 425 ml Balance -2000 ml -210 ml -185 ml medications Current Medications Medications Dose Ordered Sig/Minna Route Start Time Stop Time Status Last Admin Dose Admin Atorvastatin Calcium 40 mg HS PO 04/20/25 22:00 04/24/25 22:40 40 MG Empaglifozin 10 mg DAILY PO 04/21/25 10:00 04/25/25 09:51 10 MG Metoprolol Succinate 25 mg DAILY PO 04/21/25 10:00 04/25/25 09:53 25 MG Patient Own Medication 1 tab DAILY PO 04/21/25 10:00 04/25/25 09:51 1 TAB Acetaminophen/ Hydrocodone Bitart 1 tab Q4HP PRN PO 04/20/25 21:15 04/23/25 22:47 1 TAB Ondansetron HCl 4 mg Q4HP PRN IV 04/20/25 21:15 04/24/25 10:04 4 MG Acetaminophen 650 mg Q6HP PRN PO 04/20/25 21:15 Clonidine HCl 0.1 mg Q6HP PRN PO 04/21/25 01:15 04/22/25 14:05 0.1 MG Amlodipine Besylate 5 mg DAILY PO 04/22/25 13:30 04/25/25 09:52 5 MG Zirconium Oxide 10 gm BID PO 04/22/25 21:00 04/25/25 20:59 04/24/25 22:40 10 GM Calcium Acetate 667 mg TIDWMEALS PO 04/23/25 08:00 04/25/25 11:16 667 MG Morphine Sulfate 2 mg Q4HPRN PRN IV 04/23/25 10:15 UNV Morphine Sulfate 2 mg Q4HPRN PRN IV 04/23/25 10:15 04/25/25 11:15 2 MG Furosemide 80 mg DAILY IV 04/24/25 10:00 04/25/25 09:51 80 MG Sodium Bicarbonate 650 mg TID PO 04/23/25 22:00 04/25/25 05:17 650 MG Lidocaine 1 patch DAILY TOP 04/25/25 10:00 04/25/25 09:55 1 PATCH Examination: GENERAL:Abnormal, LUNGS:Abnormal, :Abnormal laboratory and microbiology Laboratory Tests 04/24/25 05:00 Test 04/24/25 05:00 Range/Units Serum Glucose 114 H 74-106 mg/dL Microbiology Date/Time Source Procedure Growth Status 04/21/25 10:32 Voided Urine Urine Culture - Final Complete Problem List/Assessment/Plan Problem List/Assessment/Plan Acute kidney injury due to obstruction and volume depletion now dialysis baseline renal function was normal in 2022 b/l hydronephrosis and bladder mass hyperkalemia ( was on home potassium pills) metabolic acidosis PE on eliquis anemia HIV on retrovirals obtain labs today, completed 2 dialysis sessions on CBI now, Uro plans Cystoscopy Sunday q day strict I/O sclerotic lumbar lesions . metastatic disease echo noted Monitor H&H and give PRBC p.r.n. if hemoglobin less than 8.0 patient will require tunnel dialysis catheter early next week if Erica does not recover guarded prognosis Plan discussed with: Patient My Orders My Orders Orders - LARRY SHOOK MD Procedure Category Date Status Time Basic Metabolic Panel LAB 04/26/25 Verified 04:00 Basic Metabolic Panel LAB 04/25/25 Transmitted 14:24 Complete Blood Count LAB 04/26/25 Verified 04:00 Complete Blood Count LAB 04/25/25 Transmitted 14:24 LARRY SHOOK MD Apr 25, 2025 14:28
[2025-04-25 15:11] LABS: Nucleated Red Blood Cells % 0.0 %
[2025-04-25 15:13] LABS: Hematocrit 17.4 % (41.0-53.0); Mean Corpuscular Hemoglobin 35.0 pg (28.0-32.0); Mean Corpuscular Volume 98.9 fL (80.0-100.0)
[2025-04-25 15:17] LABS: Potassium 4.5 mmol/L (3.5-5.1); Sodium 137 mmol/L (136-145)
[2025-04-25 15:18] LABS: Anion Gap 14 (5-15); Carbon Dioxide 27 mmol/L (20-31)
[2025-04-25 15:19] LABS: Calcium 9.0 mg/dL (8.7-10.4)
[2025-04-25 15:23] LABS: BUN/Creatinine Ratio 9.7 (10.0-20.0)
[2025-04-25 15:33] LABS: Blood Urea Nitrogen 62 mg/dL (9-23); Chloride 96 mmol/L (98-107); Glucose 116 mg/dL (74-106)
[2025-04-25 15:34] LABS: Hemoglobin 6.2 g/dL (13.5-17.5)
--- NOTE | 2025-04-25 18:26 | DVHPN2 ---
Reviewed: H&P Changes from previous H/P or p: No Changes General: Per HPI Objective Vitals Vital Signs Date Time Temp Pulse Resp B/P (MAP) Pulse Ox O2 Delivery O2 Flow Rate FiO2 04/25/25 17:00 98.0 81 18 131/73 (92) 99 98.0 04/25/25 10:00 Room Air 0.0 04/25/25 10:00 21 Intake/Output Intake and Output 04/25/25 07:00 Intake Total 930 ml Output Total 3325 ml Balance -2395 ml Intake Oral 930 ml Output Urine Total 3325 ml Exam General Appearance: Cachectic, Alert, Oriented X3, Cooperative, No acute distress HEENT: Atraumatic, PERRLA, EOMI, Mucous membr. moist/pink Respiratory: Normal air movement Cardiovascular: Regular rate, Normal S1, Normal S2, No murmurs, no chest pain on palpation of the chest. Abdominal: Normal bowel sounds, Soft, No tenderness, No hepatospenomegaly, No masses : Costovertebral angle negative. Miller catheter in place, with hematuria. Extremities: No clubbing, No cyanosis, No edema, Normal pulses, No tenderness/swelling Skin: No breakdown, No significant lesion Neuro: Normal gait, Normal speech, Strength at 5/5 X4 ext, Normal tone, Sensation intact, Cranial nerves 3-12 NL, Reflexes 2+ Psych/Mental Status: Mental status NL, Mood NL Medications Current Medications Medications Dose Ordered Sig/Minna Route Start Time Stop Time Status Last Admin Dose Admin Atorvastatin Calcium 40 mg HS PO 04/20/25 22:00 04/24/25 22:40 40 MG Empaglifozin 10 mg DAILY PO 04/21/25 10:00 04/25/25 09:51 10 MG Metoprolol Succinate 25 mg DAILY PO 04/21/25 10:00 04/25/25 09:53 25 MG Patient Own Medication 1 tab DAILY PO 04/21/25 10:00 04/25/25 09:51 1 TAB Acetaminophen/ Hydrocodone Bitart 1 tab Q4HP PRN PO 04/20/25 21:15 04/23/25 22:47 1 TAB Ondansetron HCl 4 mg Q4HP PRN IV 04/20/25 21:15 04/24/25 10:04 4 MG Acetaminophen 650 mg Q6HP PRN PO 04/20/25 21:15 Clonidine HCl 0.1 mg Q6HP PRN PO 04/21/25 01:15 04/22/25 14:05 0.1 MG Amlodipine Besylate 5 mg DAILY PO 04/22/25 13:30 04/25/25 09:52 5 MG Zirconium Oxide 10 gm BID PO 04/22/25 21:00 04/25/25 20:59 04/24/25 22:40 10 GM Calcium Acetate 667 mg TIDWMEALS PO 04/23/25 08:00 04/25/25 18:04 667 MG Morphine Sulfate 2 mg Q4HPRN PRN IV 04/23/25 10:15 UNV Morphine Sulfate 2 mg Q4HPRN PRN IV 04/23/25 10:15 04/25/25 11:15 2 MG Furosemide 80 mg DAILY IV 04/24/25 10:00 04/25/25 09:51 80 MG Sodium Bicarbonate 650 mg TID PO 04/23/25 22:00 04/25/25 14:31 650 MG Lidocaine 1 patch DAILY TOP 04/25/25 10:00 04/25/25 09:55 1 PATCH Docusate Sodium 100 mg BID PO 04/25/25 22:00 Laboratory Results Laboratory Tests 04/25/25 14:46 Chemistry Test 04/25/25 14:46 Calcium Level 9.0 mg/dL (8.7-10.4) Urinalysis Test 04/20/25 16:07 04/21/25 10:32 Urine Color Colorless (Yellow) Urine Clarity Clear (Clear) Urine pH 5.5 (5.0-9.0) Urine Specific [place] 1.009 (1.001-1.035) Urine Protein Trace (Negative) H Urine Ketones Negative (Negative) Urine Blood 3+ /uL (Negative) H Urine Nitrite Negative (Negative) Urine Bilirubin Negative (Negative) Urine Urobilinogen Normal mg/dL (Negative) Urine Leukocyte Esterase Negative /uL (Negative) Urine RBC 272 /hpf (0 - 3) Urine Microscopic WBC 22 /HPF (0-3) H Urine Squamous Epithelial Cells None seen /hpf (<5) Urine Bacteria Few /hpf (None Seen) H Urine Glucose 2+ mg/dL (Normal) H Urine Creatinine 30.27 mg/dL (30.0-125.0) Urine Protein/Creatinine Ratio 1.06 Urine Total Protein 32.2 mg/dL (1-14) H Microbiology Microbiology Date/Time Source Procedure Growth Status 04/21/25 10:32 Voided Urine Urine Culture - Final Complete Labs and/or images reviewed: Labs reviewed by me, Image(s) reviewed by me Assessment/Plan Assessment/Plan Carlos Abdalla is a 64-year-old male with past medical history of CHF (EF 14%) , HTN, PE (on Eliquis), [place], CKD and HIV (1994, on antiretrovital therapy. The patient came to the [facility] ED with chief complain of 2 week of noticing bloody urine. He states that initially it was david blood male as turn into a pinkish color. He reports being on Eliquis due to a pulmonary embolism diagnosed last year. On further questioning, he reports unintentional weight lost of approximate 10punds. The patient reports 1 week of bilateral leg cramping, this prompted his visit to the ED. The patient denies chest pain or shortness for breath. In the ED the UA report hematuria and CT abdomen showed thickening of bladder wall and US of bladder showed a mass. The patient was admitted for further assessment and management. Past Medical History: hypertension, HIV, CKD. Past Surgical History: Hernia repair Social Hx: Family History Noncontributory. Smoke: <1 pack per day ALCOHOL: none. Drugs: Marijuana Lives:alone PCP: at [facility] course: On 04/21/25, The patient was examined and evaluated at bedside. Vital signs, labs, chart was reviewed. The patient reports improvement in hematuria. Urology is on board, they requested Miller catheter and cystoscopy was schedule for tomorrow 04/22/25. Miller catheter was placed draining clear urine. Due to CKD, nephrology is on board, patient was started and bicarb drip due to hyperkalemia, also hyperkalemia protocol was started. Due to low hemoglobin FOBT, type and screen was request. We will continue following the progress of this patient. On 04/22/25, The patient was examined and evaluated at bedside. Vital signs, labs, chart was reviewed. The patient reports hematuria. The patient was hyperkalemic this morning, hyperkalemia protocol was started and Lokelma was added Urology is on board, they rescheduled the cystoscopy to 04/23/25 and requested 1 RBC unit to improved Hb of 7.2mg/dl. We will continue following the progress of this patient. On 04/23/25, The patient was examined and evaluated at bedside. Vital signs, labs, chart was reviewed. The patient was evaluated for nephrology, they recommended hemodyalisis, a Marcelo catheter was placed and hemodyalisis was done. Urology is on board, they recommend cytoscopy, this has been rescheduled due to hemodialysis. We will continue following the progress of this patient. On 04/24/25, The patient was examined and evaluated at bedside. Vital signs, labs, chart was reviewed. Nephroology is Urology is on board, Hemodyalisis was performed yesterday without complication via Marcelo catheter. Urology is on board, cystoscopy was recommended and that was re- scheduled to Sunday04/27/25. Today, the Miller catheter continues draining hematuria with clots, a 3-way Miller with continues irrigation was placed. We will continue following the progress of this patient closely. 04/25: Patient's hemoglobin dropped below 7 today, 1 unit packed RBC planned to be given. CBC continues still having some hematuria ongoing. Goal to have CBI clear hematuria but does not working at this point we will have Urology follow up on Sunday. Patient continues to have clotting requiring flushing of the [address] way cath. We will continue to follow up hemoglobin levels q.12. Patient continues to tolerate diet, doing well otherwise. Patient is having back pain, likely from meds. 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 CT abdomen: Bladder wall thickening Bladder US: Bladder mass Miller catheter Urology consult: :Cystoscopy with TURBT TBA reschedule to 04/23/25 #ZHEN on CKD Stage V, due to obstructive #Acute azotemia possible obstructive #Acute Sterile pyuria #Bilateral hydronephrosis Crea 7.40 GFR 8 Nephrology consult: Hemodyalisis 04/23/25 Avoid nephrotoxic drugs #Acute Severe Megaloblastic Anemia Hb 7.2mg/dl 04/22/25 Type and screen Folic acid B12 levels 1 RBC unit #CHF with systolic heart failure EF 14% in 2022 New ECHO: EF 45% (2024) Meds reconciliation #Acute Hyperkalemia Hyperkalemia protocol Bicarbonate drip Lokelma 10mg po daily Monitor potassium levels. #Chronic Severe Protein-Calorie Malnutrition in the setting of possible neoplasia Nutritional consult. #Chronic Hypertensive heart disease with systolic heart failure Med reconciliation Metoprolol 25mg po daily #Chronic PE Hold Eliquis due to hematuria SCD applied. #Chronic HIV Biktarvy po daily. GI: pantoprazol DVT prophylaxis: eliquis on hold due to hematuria, SCD device Diet: renal diet. Code status: Full code Plan discussed with: Patient My Orders Orders - JAYDA HUMMEL MD Procedure Category Date Status Time Docusate Sodium PHA 04/25/25 In Process Capsule (Colace 22:00 Date of Service: Apr 25, 2025 Billing Provider: JAYDA HUMMEL MD Common Visit Codes: [id number] INP/OBS CARE(HIGH) JAYDA HUMMEL MD Apr 25, 2025 18:26
[2025-04-25] MEDS: FUROSEMIDE 100 MG/10ML VIAL IV ONE (21:25)
[2025-04-25] MEDS: DOCUSATE SOD 100 MG CAP PO SCH (21:47)
[2025-04-26] VITALS (12 sets, daily range): BP systolic 122–151; BP diastolic 68–85; PULSE 73–87; RESP 1–18; TEMP 97.9–99.2; O2SAT 94–100
[2025-04-26 06:23] LABS: Hematocrit 25.4 % (41.0-53.0); Hemoglobin 9.0 g/dL (13.5-17.5); Mean Corpuscular Hemoglobin 33.3 pg (28.0-32.0); Mean Corpuscular Volume 94.5 fL (80.0-100.0); Nucleated Red Blood Cells % 0.0 %
[2025-04-26 06:31] LABS: Potassium 4.3 mmol/L (3.5-5.1); Sodium 137 mmol/L (136-145)
[2025-04-26 06:32] LABS: Calcium 8.8 mg/dL (8.7-10.4)
[2025-04-26 06:37] LABS: BUN/Creatinine Ratio 11.2 (10.0-20.0); Glucose 105 mg/dL (74-106)
[2025-04-26 06:38] LABS: Blood Urea Nitrogen 73 mg/dL (9-23); Chloride 96 mmol/L (98-107)
[2025-04-26 06:41] LABS: Anion Gap 14 (5-15); Carbon Dioxide 27 mmol/L (20-31)
[2025-04-26] MEDS ORDERED: MORPHINE SULFATE INJ 2 MG/ml SYRG IV PRN (11:00)
--- NOTE | 2025-04-26 11:17 | DVHPNRES ---
Progress Note Date Seen: Apr 26, 2025 Resident Creating Document: DENYS DIAMOND RESIDENT Has the PT tested + for MRSA If YES, has PT been informed?: No Medical Necessity Reason Pt with a Central, PICC or Fol: Yes The following are medically ne: Torrez Catheter Reason for torrez catheter: Bladder Retention/Obstruc Subjective Review of Systems Carlos Abdalla is a 64-year-old male with past medical history of CHF (EF 14%) , HTN, PE (on Eliquis), [place], CKD and HIV (1994, on antiretrovital therapy. The patient came to the [facility] ED with chief complain of 2 week of noticing bloody urine. He states that initially it was david blood male as turn into a pinkish color. He reports being on Eliquis due to a pulmonary embolism diagnosed last year. On further questioning, he reports unintentional weight lost of approximate 10punds. The patient reports 1 week of bilateral leg cramping, this prompted his visit to the ED. The patient denies chest pain or shortness for breath. In the ED the UA report hematuria and CT abdomen showed thickening of bladder wall and US of bladder showed a mass. The patient was admitted for further assessment and management. Past Medical History: hypertension, HIV, CKD. Past Surgical History: Hernia repair Social Hx: Family History Noncontributory. Smoke: <1 pack per day ALCOHOL: none. Drugs: Marijuana Lives:alone PCP: at [facility] course: On 04/21/25, The patient was examined and evaluated at bedside. Vital signs, labs, chart was reviewed. The patient reports improvement in hematuria. Urology is on board, they requested Torrez catheter and cystoscopy was schedule for tomorrow 04/22/25. Torrez catheter was placed draining clear urine. Due to CKD, nephrology is on board, patient was started and bicarb drip due to hyperkalemia, also hyperkalemia protocol was started. Due to low hemoglobin FOBT, type and screen was request. We will continue following the progress of this patient. On 04/22/25, The patient was examined and evaluated at bedside. Vital signs, labs, chart was reviewed. The patient reports hematuria. The patient was hyperkalemic this morning, hyperkalemia protocol was started and Lokelma was added Urology is on board, they rescheduled the cystoscopy to 04/23/25 and requested 1 RBC unit to improved Hb of 7.2mg/dl. We will continue following the progress of this patient. On 04/23/25, The patient was examined and evaluated at bedside. Vital signs, labs, chart was reviewed. The patient was evaluated for nephrology, they recommended hemodyalisis, a Marcelo catheter was placed and hemodyalisis was done. Urology is on board, they recommend cytoscopy, this has been rescheduled due to hemodialysis. We will continue following the progress of this patient. On 04/24/25, The patient was examined and evaluated at bedside. Vital signs, labs, chart was reviewed. Nephroology is Urology is on board, Hemodyalisis was performed yesterday without complication via Marcelo catheter. Urology is on board, cystoscopy was recommended and that was re- scheduled to Sunday04/27/25. Today, the Torrez catheter continues draining hematuria with clots, a 3-way Torrez with continues irrigation was placed. We will continue following the progress of this patient closely. On04/25/25: Patient's hemoglobin dropped below 7 today, 1 unit packed RBC planned to be given. CBC continues still having some hematuria ongoing. Goal to have CBI clear hematuria but does not working at this point we will have Urology follow up on Sunday. Patient continues to have clotting requiring flushing of the 3 way cath. We will continue to follow up hemoglobin levels q.12. Patient continues to tolerate diet, doing well otherwise. Patient is having back pain, likely from meds. On 04/26/25, The patient was examined and evaluated at bedside. Vital signs, labs, chart was reviewed.The patient's hemoglobin improved after 2 RBC units to 9.0mg/dl. We will continue monitoring H&H. The patient continues with 3 way Torrez catheter with continues irrigation, the Torrez is still draining gross hematuria. The urology team is on board, cystoscopy will be performed on 04/27/25. The nephroology team is on board as well, they advised dialysis, the patient received 1 dialysis session. A social consult was placed for chair time, this still pending to confirm. We will follow up with SS. Today, The patient is alert and oriented, tolerating the renal diet. The patient reported today back pain 5/10, probably due to bone metastasis; lidocaine patch, warm compresses and analgesics were ordered. We will continue following the progress of this patient closely. ROS: Constitutional: weight loss, no fever no chills. HEENT: Denies changes in vision and hearing. Respiratory: denies of cough, nasal congestion Cardiovascular: Denies chest discomfort or palpitations GI: denies abdominal, nausea, vomiting and diarrhea. : Hematuria, Denies dysuria and urinary frequency. Musculoskeletal: denies edema/ Skin: Denies rash and pruritus. Neurologic: denies dizziness Objective vital signs Vital Sign Date Time Temp Pulse Resp B/P (MAP) Pulse Ox O2 Delivery O2 Flow Rate FiO2 04/26/25 09:43 81 151/79 04/26/25 09:42 18 04/26/25 09:00 98.4 99 98.4 04/26/25 08:00 Room Air* 0 21 Total Intake and Output 04/25/25 04/25/25 04/26/25 15:00 23:00 07:00 Intake Total 1100 ml 1450 ml Output Total 5025 ml 2820 ml Balance -3925 ml -1370 ml medications Current Medications Medications Dose Ordered Sig/Minna Route Start Time Stop Time Status Last Admin Dose Admin Atorvastatin Calcium 40 mg HS PO 04/20/25 22:00 04/25/25 21:47 40 MG Empaglifozin 10 mg DAILY PO 04/21/25 10:00 04/26/25 09:42 10 MG Metoprolol Succinate 25 mg DAILY PO 04/21/25 10:00 04/26/25 09:43 25 MG Patient Own Medication 1 tab DAILY PO 04/21/25 10:00 04/25/25 09:51 1 TAB Acetaminophen/ Hydrocodone Bitart 1 tab Q4HP PRN PO 04/20/25 21:15 04/23/25 22:47 1 TAB Ondansetron HCl 4 mg Q4HP PRN IV 04/20/25 21:15 04/25/25 23:44 4 MG Acetaminophen 650 mg Q6HP PRN PO 04/20/25 21:15 Clonidine HCl 0.1 mg Q6HP PRN PO 04/21/25 01:15 04/22/25 14:05 0.1 MG Amlodipine Besylate 5 mg DAILY PO 04/22/25 13:30 04/26/25 09:42 5 MG Calcium Acetate 667 mg TIDWMEALS PO 04/23/25 08:00 04/25/25 18:04 667 MG Morphine Sulfate 2 mg Q4HPRN PRN IV 04/23/25 10:15 UNV Morphine Sulfate 2 mg Q4HPRN PRN IV 04/23/25 10:15 04/26/25 09:42 2 MG Furosemide 80 mg DAILY IV 04/24/25 10:00 04/26/25 09:41 80 MG Sodium Bicarbonate 650 mg TID PO 04/23/25 22:00 04/26/25 05:47 650 MG Lidocaine 1 patch DAILY TOP 04/25/25 10:00 04/26/25 09:43 1 PATCH Docusate Sodium 100 mg BID PO 04/25/25 22:00 04/26/25 09:42 100 MG Acetaminophen/ Hydrocodone Bitart 1 tab Q6HP PRN PO 04/26/25 11:00 UNV Morphine Sulfate 1 mg Q6HP PRN IV 04/26/25 11:00 UNV Examination General Appearance: Cachectic, Alert, Oriented X3, Cooperative, No acute distress HEENT: Atraumatic, PERRLA, EOMI, Mucous membr. moist/pink Respiratory: Normal air movement Cardiovascular: Regular rate, Normal S1, Normal S2, No murmurs, no chest pain on palpation of the chest. Abdominal: Normal bowel sounds, Soft, No tenderness, No hepatospenomegaly, No masses : Costovertebral angle negative. Torrez catheter in place, with hematuria. Extremities: back pain 5/10. No clubbing, No cyanosis, No edema, Normal pulses, No tenderness/swelling Skin: No breakdown, No significant lesion Neuro: Normal gait, Normal speech, Strength at 5/5 X4 ext, Normal tone, Sensation intact, Cranial nerves 3-12 NL, Reflexes 2+ Psych/Mental Status: Mental status NL, Mood NL laboratory and microbiology Laboratory Tests 04/26/25 05:39 Test 04/26/25 05:39 Range/Units Serum Glucose 105 74-106 mg/dL Microbiology Date/Time Source Procedure Growth Status 04/21/25 10:32 Voided Urine Urine Culture - Final Complete Problem List/Assessment/Plan Problem List/Assessment/Plan 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 #CHF with systolic heart failure EF 14% in 2022 New ECHO: EF 45% (2024) Meds reconciliation #Acute Hyperkalemia Hyperkalemia protocol Bicarbonate drip Lokelma 10mg po bid Monitor potassium levels. #Chronic Severe Protein-Calorie Malnutrition in the setting of possible neoplasia Nutritional consult. #Chronic Hypertensive heart disease with systolic heart failure Med reconciliation Metoprolol 25mg po daily #Chronic PE Hold Eliquis due to hematuria SCD applied. #Chronic HIV Biktarvy po daily. GI: pantoprazol DVT prophylaxis: eliquis on hold due to hematuria, SCD device Diet: renal diet. Code status: Full code PCP: [facility] Goals of care discussed with patient >30min. Case and plan discussed with Dr. Rogel. Plan discussed with: Patient My Orders My Orders Orders - DENYS DIAMOND Procedure Category Date Status Time Hydrocodone-Acet PHA 04/26/25 Logged 10/325mg Tab ([place] 11:00 Morphine Sulfate PHA 04/26/25 Logged Injection 11:00 Warm Compresses ORDERS 04/26/25 Transmitted 10:50 Visit Coding STANDARD RES Billing Provider: JAYDA HUMMEL MD Date of Service if different f: Apr 26, 2025 Common Visit Codes: [id number] INP/OBS CARE(HIGH) DENYS DIAMOND RESIDENT Apr 26, 2025 11:17
--- NOTE | 2025-04-26 12:59 | DVHPN2 ---
Progress Note Date Seen: Apr 26, 2025 Has the PT tested + for MRSA If YES, has PT been informed?: No Medical Necessity Reason Pt with a Central, PICC or Fol: Yes The following are medically ne: Torrez Catheter Reason for torrez catheter: Bladder Retention/Obstruc Subjective Changes from previous H/P or p: No Changes Review of Systems: :Abnormal Objective vital signs Vital Sign Date Time Temp Pulse Resp B/P (MAP) Pulse Ox O2 Delivery O2 Flow Rate FiO2 04/26/25 12:42 98.2 73 18 122/71 (88) 99 98.2 04/26/25 08:00 Room Air* 0 21 Total Intake and Output 04/25/25 04/25/25 04/26/25 14:59 22:59 06:59 Intake Total 1100 ml 1450 ml Output Total 5025 ml 2820 ml Balance -3925 ml -1370 ml medications Current Medications Medications Dose Ordered Sig/Minna Route Start Time Stop Time Status Last Admin Dose Admin Atorvastatin Calcium 40 mg HS PO 04/20/25 22:00 04/25/25 21:47 40 MG Empaglifozin 10 mg DAILY PO 04/21/25 10:00 04/26/25 09:42 10 MG Metoprolol Succinate 25 mg DAILY PO 04/21/25 10:00 04/26/25 09:43 25 MG Patient Own Medication 1 tab DAILY PO 04/21/25 10:00 04/25/25 09:51 1 TAB Acetaminophen/ Hydrocodone Bitart 1 tab Q4HP PRN PO 04/20/25 21:15 Hold 04/23/25 22:47 1 TAB Ondansetron HCl 4 mg Q4HP PRN IV 04/20/25 21:15 04/25/25 23:44 4 MG Acetaminophen 650 mg Q6HP PRN PO 04/20/25 21:15 Clonidine HCl 0.1 mg Q6HP PRN PO 04/21/25 01:15 04/22/25 14:05 0.1 MG Amlodipine Besylate 5 mg DAILY PO 04/22/25 13:30 04/26/25 09:42 5 MG Calcium Acetate 667 mg TIDWMEALS PO 04/23/25 08:00 04/25/25 18:04 667 MG Morphine Sulfate 2 mg Q4HPRN PRN IV 04/23/25 10:15 UNV Morphine Sulfate 2 mg Q4HPRN PRN IV 04/23/25 10:15 Hold 04/26/25 09:42 2 MG Furosemide 80 mg DAILY IV 04/24/25 10:00 04/26/25 09:41 80 MG Sodium Bicarbonate 650 mg TID PO 04/23/25 22:00 04/26/25 05:47 650 MG Lidocaine 1 patch DAILY TOP 04/25/25 10:00 04/26/25 09:43 1 PATCH Docusate Sodium 100 mg BID PO 04/25/25 22:00 04/26/25 09:42 100 MG Acetaminophen/ Hydrocodone Bitart 1 tab Q6HP PRN PO 04/26/25 11:00 Morphine Sulfate 1 mg Q6HP PRN IV 04/26/25 11:00 Examination: GENERAL:Abnormal, LUNGS:Abnormal, CVS:Abnormal laboratory and microbiology Laboratory Tests 04/26/25 05:39 Test 04/26/25 05:39 Range/Units Serum Glucose 105 74-106 mg/dL Microbiology Date/Time Source Procedure Growth Status 04/21/25 10:32 Voided Urine Urine Culture - Final Complete Problem List/Assessment/Plan Problem List/Assessment/Plan Acute kidney injury due to obstruction and volume depletion now dialysis baseline renal function was normal in 2022 b/l hydronephrosis and bladder mass on CBI hyperkalemia ( was on home potassium pills) metabolic acidosis PE on eliquis anemia HIV on retrovirals anemia due to gross hematuria completed 2 dialysis sessions s/p 2 unita PRBC yesterday on CBI now, Uro plans Cystoscopy Sunday lasix q day strict I/O sclerotic lumbar lesions . metastatic disease echo noted Monitor H&H and give PRBC p.r.n. if hemoglobin less than 8.0 patient will require tunnel dialysis catheter early next week if Erica does not recover guarded prognosis Plan discussed with: Patient LARRY SHOOK MD Apr 26, 2025 12:59
--- NOTE | 2025-04-26 17:11 | DVHPN2 ---
Progress Note - Dictate Date Seen: Apr 26, 2025 Has the PT tested + for MRSA If YES, has PT been informed?: No Medical Necessity Reason Pt with a Central, PICC or Fol: Yes The following are medically ne: Torrez Catheter Reason for torrez catheter: Bladder Retention/Obstruc vital signs Vital Sign Date Time Temp Pulse Resp B/P (MAP) Pulse Ox O2 Delivery O2 Flow Rate FiO2 04/26/25 16:43 98.4 77 16 137/84 (101) 99 98.4 04/26/25 10:00 Room Air 0.0 04/26/25 10:00 21 Total Intake and Output 04/25/25 04/25/25 04/26/25 15:00 23:00 07:00 Intake Total 1100 ml 1450 ml Output Total 5025 ml 2820 ml Balance -3925 ml -1370 ml medications Current Medications Medications Dose Ordered Sig/Minna Route Start Time Stop Time Status Last Admin Dose Admin Atorvastatin Calcium 40 mg HS PO 04/20/25 22:00 04/25/25 21:47 40 MG Empaglifozin 10 mg DAILY PO 04/21/25 10:00 04/26/25 09:42 10 MG Metoprolol Succinate 25 mg DAILY PO 04/21/25 10:00 04/26/25 09:43 25 MG Patient Own Medication 1 tab DAILY PO 04/21/25 10:00 04/26/25 10:00 1 TAB Acetaminophen/ Hydrocodone Bitart 1 tab Q4HP PRN PO 04/20/25 21:15 Hold 04/23/25 22:47 1 TAB Ondansetron HCl 4 mg Q4HP PRN IV 04/20/25 21:15 04/25/25 23:44 4 MG Acetaminophen 650 mg Q6HP PRN PO 04/20/25 21:15 Clonidine HCl 0.1 mg Q6HP PRN PO 04/21/25 01:15 04/22/25 14:05 0.1 MG Amlodipine Besylate 5 mg DAILY PO 04/22/25 13:30 04/26/25 09:42 5 MG Calcium Acetate 667 mg TIDWMEALS PO 04/23/25 08:00 04/26/25 12:00 667 MG Morphine Sulfate 2 mg Q4HPRN PRN IV 04/23/25 10:15 UNV Morphine Sulfate 2 mg Q4HPRN PRN IV 04/23/25 10:15 Hold 04/26/25 09:42 2 MG Furosemide 80 mg DAILY IV 04/24/25 10:00 04/26/25 09:41 80 MG Sodium Bicarbonate 650 mg TID PO 04/23/25 22:00 04/26/25 14:00 650 MG Lidocaine 1 patch DAILY TOP 04/25/25 10:00 04/26/25 09:43 1 PATCH Docusate Sodium 100 mg BID PO 04/25/25 22:00 04/26/25 09:42 100 MG Acetaminophen/ Hydrocodone Bitart 1 tab Q6HP PRN PO 04/26/25 11:00 Morphine Sulfate 1 mg Q6HP PRN IV 04/26/25 11:00 objective CBI ongoing, hematuria is persistent laboratory and microbiology Laboratory Tests 04/26/25 05:39 Test 04/26/25 05:39 Range/Units Serum Glucose 105 74-106 mg/dL Assessment/Plan had dialysis 04/24 will proceed Sunday morning Plan discussed with: Patient, Other EDYTA MORSE NP Apr 26, 2025 17:11
[2025-04-26] MEDS: MORPHINE SULFATE 4 MG/ML SYR/VIAL IV PRN (23:23)
[2025-04-27] VITALS (8 sets, daily range): BP systolic 125–146; BP diastolic 76–81; PULSE 76–99; RESP 12–18; TEMP 97.7–98.9; O2SAT 95–99
[2025-04-27 06:49] LABS: Hematocrit 25.3 % (41.0-53.0); Hemoglobin 8.8 g/dL (13.5-17.5); Mean Corpuscular Hemoglobin 33.2 pg (28.0-32.0); Mean Corpuscular Volume 95.6 fL (80.0-100.0); Nucleated Red Blood Cells % 0.0 %
[2025-04-27 06:53] LABS: Potassium 4.6 mmol/L (3.5-5.1); Sodium 137 mmol/L (136-145)
[2025-04-27 06:54] LABS: Anion Gap 14 (5-15); Carbon Dioxide 26 mmol/L (20-31)
[2025-04-27 06:55] LABS: Calcium 9.1 mg/dL (8.7-10.4)
[2025-04-27 07:00] LABS: BUN/Creatinine Ratio 10.3 (10.0-20.0); Glucose 90 mg/dL (74-106)
[2025-04-27] MEDS: CIPROFLOXACIN 400MG/200ML 200 ML IV ONE (07:02)
[2025-04-27] MEDS ORDERED: METOCLOPRAMIDE HCL 5MG/ml INJ 2ml VIAL IV PRN (07:15)
[2025-04-27] MEDS: ACETAMINOPHEN IV 1000 MG/100ML (10MG/ML) IV ONE (07:15)
[2025-04-27] MEDS ORDERED: HYDROmorphone HCL 2 MG/ML VL/or syr IV PRN (07:15)
[2025-04-27] MEDS ORDERED: ONDANSETRON HCL 4 MG/2 ML VIAL IV PRN (07:15)
[2025-04-27 07:19] LABS: Chloride 97 mmol/L (98-107)
[2025-04-27 07:25] LABS: Blood Urea Nitrogen 81 mg/dL (9-23)
[2025-04-27] MEDS ORDERED: ONDANSETRON HCL 4 MG/2 ML VIAL ONE (07:40)
[2025-04-27] MEDS ORDERED: LIDOCAINE 2% (LOCAL ANESTH.) PF 5ml SDV ONE (07:40)
[2025-04-27] MEDS ORDERED: fentaNYL CITRATE 100 MCG/2 ML VL ONE (07:40)
[2025-04-27] MEDS ORDERED: METOCLOPRAMIDE HCL 5MG/ml INJ 2ml VIAL ONE (07:40)
[2025-04-27] MEDS ORDERED: MIDAZOLAM HCL 2MG/2ML 2ml VIAL (1mg/ml) ONE (07:40)
[2025-04-27] MEDS ORDERED: ROCURONIUM 10MG/ML 10ML VIAL IV ONE (07:41)
[2025-04-27] MEDS ORDERED: PROPOFOL 10 MG/ML 20 ML IV ONE (07:41)
[2025-04-27] MEDS ORDERED: SODIUM CHLORIDE LOCK 10 ML ONE (08:08)
[2025-04-27] MEDS ORDERED: HYDROmorphone HCL 2 MG/ML VL/or syr ONE (08:37)
[2025-04-27] MEDS ORDERED: SUGAMMADEX 200mg/2ml Vial (100MG/ML) IV ONE (08:37)
--- NOTE | 2025-04-27 09:32 | DVHNC2 ---
Procedure - OPERATIVE REPORT Pre-op. Diagnosis: Gross hematuria ESRD Bladder mass Post-op. Diagnosis: Same as pre-op diagnosis Operation: Transurethral resection of bladder tumors Bladder Biopsy Anesthesia: General Indications: [facility] with gross hematuria, ESRD on dialysis and findings of bladder mass on CT scan. Indications, risks, complications, alternatives and benefits of transurethral resection of bladder tumor were discussed with the patient. All questions were encouraged and answered. Patient is aware of risks/complications including but not limited to infection, bleeding, bladder injury requiring additional procedures, urethral stricture formation and possible need for additional procedures. Patient consented to proceed. Details of Procedure: The patient was brought to the operating room and placed upon the table. After induction of anesthesia, patient was placed in the dorsal lithotomy position. Patient's genitalia and perineal regions were prepped and draped in standard surgical fashion. A rigid resectoscope was assembled and introduced into the urinary bladder. Clots were evacuated with Ellick. The entire contour of the bladder was evaluated. There were multifocal tumor masses involving posterior wall, right posterior wall, trigone, bladder neck and prostatic urethra. . Using the loop electrocautery, I resected the bladder tumors in its entirety. The UO was not damaged and demonstrated clear ureteral jetting. Lesion was >5cm in total surface area. Chips were then evacuated. Bladder Biopsy - There was a suspicious area just beyond this tumor mass that was also biopsied and send off separately. Hemostasis was established and no bleeding was noted with inflow of irrigation stopped. At this point a 20Fr [address] Miller Catheter was inserted and put to a leg bag. General anesthesia was reversed. The patient tolerated the procedure well and was then transferred to the recovery room in satisfactory condition. EBL - minimal Specimens: Bladder tumors: posterior wall, trigone Bladder Biopsy of bladder neck (L) and prostate urethral lesions Complications: None Findings: Notes: Findings suggest local adjacent organ metastasis. JOSE PEREZ MD Apr 27, 2025 09:32
[2025-04-27] MEDS: SODIUM CHL 0.9% 1000 ML BAG XX ONE ×2 (10:58)
--- NOTE | 2025-04-27 12:06 | DVHPN2 ---
Progress Note Date Seen: Apr 27, 2025 Has the PT tested + for MRSA If YES, has PT been informed?: No Medical Necessity Reason Pt with a Central, PICC or Fol: Yes The following are medically ne: Torrez Catheter Reason for torrez catheter: Bladder Retention/Obstruc Subjective Other Systems: Patient seen and examined by myself today in follow-up Objective vital signs Vital Sign Date Time Temp Pulse Resp B/P (MAP) Pulse Ox O2 Delivery O2 Flow Rate FiO2 04/27/25 10:00 96 Room Air* 0 21 04/27/25 09:45 78 11 140/80 (100) 04/27/25 09:15 97.0 97.0 Total Intake and Output 04/26/25 04/26/25 04/27/25 15:00 23:00 07:00 Intake Total 240 ml 500 ml 100 ml Output Total 2800 ml 86255 ml Balance 240 ml -2300 ml -80217 ml medications Current Medications Medications Dose Ordered Sig/Minna Route Start Time Stop Time Status Last Admin Dose Admin Atorvastatin Calcium 40 mg HS PO 04/20/25 22:00 04/26/25 21:16 40 MG Empaglifozin 10 mg DAILY PO 04/21/25 10:00 04/26/25 09:42 10 MG Metoprolol Succinate 25 mg DAILY PO 04/21/25 10:00 04/26/25 09:43 25 MG Patient Own Medication 1 tab DAILY PO 04/21/25 10:00 04/26/25 10:00 1 TAB Acetaminophen/ Hydrocodone Bitart 1 tab Q4HP PRN PO 04/20/25 21:15 Hold 04/23/25 22:47 1 TAB Ondansetron HCl 4 mg Q4HP PRN IV 04/20/25 21:15 04/25/25 23:44 4 MG Acetaminophen 650 mg Q6HP PRN PO 04/20/25 21:15 Clonidine HCl 0.1 mg Q6HP PRN PO 04/21/25 01:15 04/22/25 14:05 0.1 MG Calcium Acetate 667 mg TIDWMEALS PO 04/23/25 08:00 04/26/25 18:00 667 MG Morphine Sulfate 2 mg Q4HPRN PRN IV 04/23/25 10:15 UNV Morphine Sulfate 2 mg Q4HPRN PRN IV 04/23/25 10:15 Hold 04/26/25 09:42 2 MG Furosemide 80 mg DAILY IV 04/24/25 10:00 04/26/25 09:41 80 MG Sodium Bicarbonate 650 mg TID PO 04/23/25 22:00 04/26/25 21:16 650 MG Lidocaine 1 patch DAILY TOP 04/25/25 10:00 04/26/25 09:43 1 PATCH Docusate Sodium 100 mg BID PO 04/25/25 22:00 04/26/25 21:15 100 MG Acetaminophen/ Hydrocodone Bitart 1 tab Q6HP PRN PO 04/26/25 11:00 Morphine Sulfate 1 mg Q6HP PRN IV 04/26/25 23:15 04/27/25 05:37 1 MG Amlodipine Besylate 10 mg DAILY PO 04/27/25 10:00 Examination: LUNGS:Normal, CVS:Normal, MSK:Normal laboratory and microbiology Laboratory Tests 04/27/25 05:59 Test 04/27/25 05:59 Range/Units Serum Glucose 90 74-106 mg/dL Microbiology Date/Time Source Procedure Growth Status 04/21/25 10:32 Voided Urine Urine Culture - Final Complete Problem List/Assessment/Plan Problem List/Assessment/Plan Acute kidney injury superimposed Chronic Kidney Disease secondary to obstructive uropathy b/l hydronephrosis and bladder mass on CBI hyperkalemia ( was on home potassium pills) metabolic acidosis PE on eliquis anemia HIV on retrovirals anemia due to gross hematuria Recommendations Continue with UF 1-2 L as tolerated Use no heparin Discontinue amlodipine due to low blood pressure Packed red blood cell transfusion p.r.n. Strict I&Os on CBI now, Uro plans Cystoscopy Sunday lasix q day strict I/O Urology on the case We will continue to follow up Plan discussed with: Patient CHET CUNNINGHAM MD Apr 27, 2025 12:06
[2025-04-27] MEDS: ACETAMINOPHEN 325 MG TAB PO PRN (15:10)
--- NOTE | 2025-04-27 15:25 | DVHPNRES ---
Progress Note Date Seen: Apr 27, 2025 Resident Creating Document: DENYS DIAMOND RESIDENT Has the PT tested + for MRSA If YES, has PT been informed?: No Medical Necessity Reason Pt with a Central, PICC or Fol: Yes The following are medically ne: Torrez Catheter Reason for torrez catheter: Bladder Retention/Obstruc Subjective Review of Systems Carlos Abdalla is a 64-year-old male with past medical history of CHF (EF 14%) , HTN, PE (on Eliquis), [place], CKD and HIV (1994, on antiretrovital therapy. The patient came to the [facility] ED with chief complain of 2 week of noticing bloody urine. He states that initially it was david blood male as turn into a pinkish color. He reports being on Eliquis due to a pulmonary embolism diagnosed last year. On further questioning, he reports unintentional weight lost of approximate 10punds. The patient reports 1 week of bilateral leg cramping, this prompted his visit to the ED. The patient denies chest pain or shortness for breath. In the ED the UA report hematuria and CT abdomen showed thickening of bladder wall and US of bladder showed a mass. The patient was admitted for further assessment and management. Past Medical History: hypertension, HIV, CKD. Past Surgical History: Hernia repair Social Hx: Family History Noncontributory. Smoke: <1 pack per day ALCOHOL: none. Drugs: Marijuana Lives:alone PCP: at [facility] course: On 04/21/25, The patient was examined and evaluated at bedside. Vital signs, labs, chart was reviewed. The patient reports improvement in hematuria. Urology is on board, they requested Torrez catheter and cystoscopy was schedule for tomorrow 04/22/25. Torrez catheter was placed draining clear urine. Due to CKD, nephrology is on board, patient was started and bicarb drip due to hyperkalemia, also hyperkalemia protocol was started. Due to low hemoglobin FOBT, type and screen was request. We will continue following the progress of this patient. On 04/22/25, The patient was examined and evaluated at bedside. Vital signs, labs, chart was reviewed. The patient reports hematuria. The patient was hyperkalemic this morning, hyperkalemia protocol was started and Lokelma was added Urology is on board, they rescheduled the cystoscopy to 04/23/25 and requested 1 RBC unit to improved Hb of 7.2mg/dl. We will continue following the progress of this patient. On 04/23/25, The patient was examined and evaluated at bedside. Vital signs, labs, chart was reviewed. The patient was evaluated for nephrology, they recommended hemodyalisis, a Marcelo catheter was placed and hemodyalisis was done. Urology is on board, they recommend cytoscopy, this has been rescheduled due to hemodialysis. We will continue following the progress of this patient. On 04/24/25, The patient was examined and evaluated at bedside. Vital signs, labs, chart was reviewed. Nephroology is Urology is on board, Hemodyalisis was performed yesterday without complication via Marcelo catheter. Urology is on board, cystoscopy was recommended and that was re- scheduled to Sunday04/27/25. Today, the Torrez catheter continues draining hematuria with clots, a 3-way Torrez with continues irrigation was placed. We will continue following the progress of this patient closely. On04/25/25: Patient's hemoglobin dropped below 7 today, 1 unit packed RBC planned to be given. CBC continues still having some hematuria ongoing. Goal to have CBI clear hematuria but does not working at this point we will have Urology follow up on Sunday. Patient continues to have clotting requiring flushing of the 3 way cath. We will continue to follow up hemoglobin levels q.12. Patient continues to tolerate diet, doing well otherwise. Patient is having back pain, likely from meds. On 04/26/25, The patient was examined and evaluated at bedside. Vital signs, labs, chart was reviewed.The patient's hemoglobin improved after 2 RBC units to 9.0mg/dl. We will continue monitoring H&H. The patient continues with 3 way Torrez catheter with continues irrigation, the Torrez is still draining gross hematuria. The urology team is on board, cystoscopy will be performed on 04/27/25. The nephroology team is on board as well, they advised dialysis, the patient received 1 dialysis session. A social consult was placed for chair time, this still pending to confirm. We will follow up with SS. Today, The patient is alert and oriented, tolerating the renal diet. The patient reported today back pain 5/10, probably due to bone metastasis; lidocaine patch, warm compresses and analgesics were ordered. We will continue following the progress of this patient closely. On 04/27/25, The patient was examined and evaluated at bedside. Vital signs, labs, chart was reviewed.The patient's hemoglobin is stable 8.8mg/dl. We will continue monitoring H&H. The patient underwent cytoscopy and biopsies were taken: There were multifocal tumor masses involving posterior wall, right posterior wall, trigone, bladder neck and prostatic urethra. Using the loop electrocautery, they resected the bladder tumors in its entirety. The UO was not damaged and demonstrated clear ureteral jetting. Lesion was >5cm in total surface area. The patient had hemodyalisis today. The patient will have tunnel catheter placed tomorrow. SS. was placed for dyalisis chair time. PT evaluation was placed due to de-conditioning. We will continue following the progress of this patient. ROS: Constitutional: weight loss, no fever no chills. HEENT: Denies changes in vision and hearing. Respiratory: denies of cough, nasal congestion Cardiovascular: Denies chest discomfort or palpitations GI: denies abdominal, nausea, vomiting and diarrhea. : Hematuria, Denies dysuria and urinary frequency. Musculoskeletal: denies edema/ Skin: Denies rash and pruritus. Neurologic: denies dizziness Objective vital signs Vital Sign Date Time Temp Pulse Resp B/P (MAP) Pulse Ox O2 Delivery O2 Flow Rate FiO2 04/27/25 12:32 98.6 98 17 140/78 (98) 99 98.6 04/27/25 10:00 Room Air* 0 21 Total Intake and Output 04/26/25 04/26/25 04/27/25 15:00 23:00 07:00 Intake Total 240 ml 500 ml 100 ml Output Total 2800 ml 76139 ml Balance 240 ml -2300 ml -54500 ml medications Current Medications Medications Dose Ordered Sig/Minna Route Start Time Stop Time Status Last Admin Dose Admin Atorvastatin Calcium 40 mg HS PO 04/20/25 22:00 04/26/25 21:16 40 MG Empaglifozin 10 mg DAILY PO 04/21/25 10:00 04/26/25 09:42 10 MG Metoprolol Succinate 25 mg DAILY PO 04/21/25 10:00 04/26/25 09:43 25 MG Patient Own Medication 1 tab DAILY PO 04/21/25 10:00 04/26/25 10:00 1 TAB Acetaminophen/ Hydrocodone Bitart 1 tab Q4HP PRN PO 04/20/25 21:15 Hold 04/23/25 22:47 1 TAB Ondansetron HCl 4 mg Q4HP PRN IV 04/20/25 21:15 04/25/25 23:44 4 MG Acetaminophen 650 mg Q6HP PRN PO 04/20/25 21:15 Clonidine HCl 0.1 mg Q6HP PRN PO 04/21/25 01:15 04/22/25 14:05 0.1 MG Calcium Acetate 667 mg TIDWMEALS PO 04/23/25 08:00 04/26/25 18:00 667 MG Morphine Sulfate 2 mg Q4HPRN PRN IV 04/23/25 10:15 UNV Morphine Sulfate 2 mg Q4HPRN PRN IV 04/23/25 10:15 Hold 04/26/25 09:42 2 MG Furosemide 80 mg DAILY IV 04/24/25 10:00 04/26/25 09:41 80 MG Lidocaine 1 patch DAILY TOP 04/25/25 10:00 04/26/25 09:43 1 PATCH Docusate Sodium 100 mg BID PO 04/25/25 22:00 04/26/25 21:15 100 MG Acetaminophen/ Hydrocodone Bitart 1 tab Q6HP PRN PO 04/26/25 11:00 Morphine Sulfate 1 mg Q6HP PRN IV 04/26/25 23:15 04/27/25 05:37 1 MG Examination General Appearance: Cachectic, Alert, Oriented X3, Cooperative, No acute distress HEENT: Atraumatic, PERRLA, EOMI, Mucous membr. moist/pink Respiratory: Normal air movement Cardiovascular: Regular rate, Normal S1, Normal S2, No murmurs, no chest pain on palpation of the chest. Abdominal: Normal bowel sounds, Soft, No tenderness, No hepatospenomegaly, No masses : Costovertebral angle negative. Torrez catheter in place, with hematuria. Extremities: back pain 5/10. No clubbing, No cyanosis, No edema, Normal pulses, No tenderness/swelling Skin: No breakdown, No significant lesion Neuro: Normal gait, Normal speech, Strength at 5/5 X4 ext, Normal tone, Sensation intact, Cranial nerves 3-12 NL, Reflexes 2+ Psych/Mental Status: Mental status NL, Mood NL laboratory and microbiology Laboratory Tests 04/27/25 05:59 Test 04/27/25 05:59 Range/Units Serum Glucose 90 74-106 mg/dL Microbiology Date/Time Source Procedure Growth Status 04/21/25 10:32 Voided Urine Urine Culture - Final Complete Problem List/Assessment/Plan Problem List/Assessment/Plan 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 SS consult for chair time Avoid nephrotoxic drugs Hemodyalisis 04/23/25, 04/27/25 #Acute Severe Megaloblastic Anemia Hb 9 mg/dl 04/26/25 Type and screen Folic acid B12 levels 3 units were transfused. #CHF with systolic heart failure no exacerbation EF 14% in 2022 New ECHO: EF 45% (2024) Meds reconciliation #Acute Hyperkalemia Hyperkalemia protocol Bicarbonate drip Lokelma 10mg po bid Monitor potassium levels. #Chronic Severe Protein-Calorie Malnutrition in the setting of possible neoplasia Nutritional consult. PT evaluation Nutritional consult Ensure po bid #Chronic Hypertensive heart disease with systolic heart failure Med reconciliation Metoprolol 25mg po daily #Chronic PE Hold Eliquis due to hematuria SCD applied. #Chronic HIV Biktarvy po daily. Absolute count CD4: 107 Absolute count CD8:83 GI: pantoprazol DVT prophylaxis: eliquis on hold due to hematuria, SCD device Diet: renal diet. NPO after midnight due to Tunnel catheter placement. Code status: Full code PCP: [facility] [place] Goals of care discussed with patient >30min. Case and plan discussed with Dr. Rogel. Plan discussed with: Patient My Orders My Orders Orders - DENYS DIAMOND RESIDENT Procedure Category Date Status Time * Radiologist Consult CONS 04/26/25 Transmitted 15:11 Morphine Sulfate PHA 04/26/25 In Process Injection 23:15 Pt Request For Service PT 04/27/25 Logged 14:23 Complete Blood Count LAB 04/28/25 Verified 04:00 Basic Metabolic Panel LAB 04/28/25 Verified 04:00 Visit Coding STANDARD RES Billing Provider: JAYDA HUMMEL MD Date of Service if different f: Apr 27, 2025 Common Visit Codes: [id number] INP/OBS CARE(HIGH) DENYS DIAMOND RESIDENT Apr 27, 2025 15:25
[2025-04-27] MEDS: Nepro With Carbsteady ButterPecan 8oz Carton PO SCH (18:00)
[2025-04-27] MEDS: HYDROcodone-ACET 10/325MG TAB PO PRN (21:26)
[2025-04-28] VITALS (10 sets, daily range): BP systolic 128–148; BP diastolic 65–85; PULSE 80–97; RESP 12–18; TEMP 37.5; O2SAT 94–98
--- NOTE | 2025-04-28 06:33 | DVHPNRES ---
Progress Note Date Seen: Apr 28, 2025 Resident Creating Document: DENYS DIAMOND RESIDENT Has the PT tested + for MRSA If YES, has PT been informed?: No Medical Necessity Reason Pt with a Central, PICC or Fol: Yes The following are medically ne: Torrez Catheter Reason for torrez catheter: Bladder Retention/Obstruc Subjective Review of Systems Carlos Abdalla is a 64-year-old male with past medical history of CHF (EF 14%) , HTN, PE (on Eliquis), [place], CKD and HIV (1994, on antiretrovital therapy. The patient came to the [facility] ED with chief complain of 2 week of noticing bloody urine. He states that initially it was david blood male as turn into a pinkish color. He reports being on Eliquis due to a pulmonary embolism diagnosed last year. On further questioning, he reports unintentional weight lost of approximate 10punds. The patient reports 1 week of bilateral leg cramping, this prompted his visit to the ED. The patient denies chest pain or shortness for breath. In the ED the UA report hematuria and CT abdomen showed thickening of bladder wall and US of bladder showed a mass. The patient was admitted for further assessment and management. Past Medical History: hypertension, HIV, CKD. Past Surgical History: Hernia repair Social Hx: Family History Noncontributory. Smoke: <1 pack per day ALCOHOL: none. Drugs: Marijuana Lives:alone PCP: at [facility] course: On 04/21/25, The patient was examined and evaluated at bedside. Vital signs, labs, chart was reviewed. The patient reports improvement in hematuria. Urology is on board, they requested Torrez catheter and cystoscopy was schedule for tomorrow 04/22/25. Torrez catheter was placed draining clear urine. Due to CKD, nephrology is on board, patient was started and bicarb drip due to hyperkalemia, also hyperkalemia protocol was started. Due to low hemoglobin FOBT, type and screen was request. We will continue following the progress of this patient. On 04/22/25, The patient was examined and evaluated at bedside. Vital signs, labs, chart was reviewed. The patient reports hematuria. The patient was hyperkalemic this morning, hyperkalemia protocol was started and Lokelma was added Urology is on board, they rescheduled the cystoscopy to 04/23/25 and requested 1 RBC unit to improved Hb of 7.2mg/dl. We will continue following the progress of this patient. On 04/23/25, The patient was examined and evaluated at bedside. Vital signs, labs, chart was reviewed. The patient was evaluated for nephrology, they recommended hemodyalisis, a Marcelo catheter was placed and hemodyalisis was done. Urology is on board, they recommend cytoscopy, this has been rescheduled due to hemodialysis. We will continue following the progress of this patient. On 04/24/25, The patient was examined and evaluated at bedside. Vital signs, labs, chart was reviewed. Nephroology is Urology is on board, Hemodyalisis was performed yesterday without complication via Marcelo catheter. Urology is on board, cystoscopy was recommended and that was re- scheduled to Sunday04/27/25. Today, the Torrez catheter continues draining hematuria with clots, a 3-way Torrez with continues irrigation was placed. We will continue following the progress of this patient closely. On04/25/25: Patient's hemoglobin dropped below 7 today, 1 unit packed RBC planned to be given. CBC continues still having some hematuria ongoing. Goal to have CBI clear hematuria but does not working at this point we will have Urology follow up on Sunday. Patient continues to have clotting requiring flushing of the 3 way cath. We will continue to follow up hemoglobin levels q.12. Patient continues to tolerate diet, doing well otherwise. Patient is having back pain, likely from meds. On 04/26/25, The patient was examined and evaluated at bedside. Vital signs, labs, chart was reviewed.The patient's hemoglobin improved after 2 RBC units to 9.0mg/dl. We will continue monitoring H&H. The patient continues with 3 way Torrez catheter with continues irrigation, the Torrez is still draining gross hematuria. The urology team is on board, cystoscopy will be performed on 04/27/25. The nephroology team is on board as well, they advised dialysis, the patient received 1 dialysis session. A social consult was placed for chair time, this still pending to confirm. We will follow up with SS. Today, The patient is alert and oriented, tolerating the renal diet. The patient reported today back pain 5/10, probably due to bone metastasis; lidocaine patch, warm compresses and analgesics were ordered. We will continue following the progress of this patient closely. On 04/27/25, The patient was examined and evaluated at bedside. Vital signs, labs, chart was reviewed.The patient's hemoglobin is stable 8.8mg/dl. We will continue monitoring H&H. The patient underwent cytoscopy and biopsies were taken: There were multifocal tumor masses involving posterior wall, right posterior wall, trigone, bladder neck and prostatic urethra. Using the loop electrocautery, they resected the bladder tumors in its entirety. The UO was not damaged and demonstrated clear ureteral jetting. Lesion was >5cm in total surface area. The patient had hemodyalisis today. The patient will have tunnel catheter placed tomorrow. SS. was placed for dyalisis chair time. PT evaluation was placed due to de-conditioning. We will continue following the progress of this patient. On 04/28/25: The patient was examined and evaluated at bedside. Vital signs, labs, chart was reviewed.The patient's hemoglobin is stable 8.8mg/dl. We will continue monitoring H&H. ROS: Constitutional: weight loss, no fever no chills. HEENT: Denies changes in vision and hearing. Respiratory: denies of cough, nasal congestion Cardiovascular: Denies chest discomfort or palpitations GI: denies abdominal, nausea, vomiting and diarrhea. : Hematuria, Denies dysuria and urinary frequency. Musculoskeletal: denies edema/ Skin: Denies rash and pruritus. Neurologic: denies dizziness Objective vital signs Vital Sign Date Time Temp Pulse Resp B/P (MAP) Pulse Ox O2 Delivery O2 Flow Rate FiO2 04/28/25 05:00 99.6 96 18 142/84 (103) 97 99.6 04/27/25 20:22 Room Air* 0 21 Total Intake and Output 04/27/25 04/27/25 04/28/25 15:00 23:00 07:00 Intake Total 780 ml 600 ml Output Total 3200 ml 2750 ml Balance -2420 ml -2150 ml medications Current Medications Medications Dose Ordered Sig/Minna Route Start Time Stop Time Status Last Admin Dose Admin Atorvastatin Calcium 40 mg HS PO 04/20/25 22:00 04/27/25 21:04 40 MG Empaglifozin 10 mg DAILY PO 04/21/25 10:00 04/27/25 15:10 10 MG Metoprolol Succinate 25 mg DAILY PO 04/21/25 10:00 04/26/25 09:43 25 MG Patient Own Medication 1 tab DAILY PO 04/21/25 10:00 04/27/25 15:10 1 TAB Acetaminophen/ Hydrocodone Bitart 1 tab Q4HP PRN PO 04/20/25 21:15 Hold 04/23/25 22:47 1 TAB Ondansetron HCl 4 mg Q4HP PRN IV 04/20/25 21:15 04/25/25 23:44 4 MG Acetaminophen 650 mg Q6HP PRN PO 04/20/25 21:15 04/27/25 15:10 650 MG Clonidine HCl 0.1 mg Q6HP PRN PO 04/21/25 01:15 04/22/25 14:05 0.1 MG Calcium Acetate 667 mg TIDWMEALS PO 04/23/25 08:00 04/27/25 19:14 667 MG Morphine Sulfate 2 mg Q4HPRN PRN IV 04/23/25 10:15 UNV Morphine Sulfate 2 mg Q4HPRN PRN IV 04/23/25 10:15 Hold 04/26/25 09:42 2 MG Furosemide 80 mg DAILY IV 04/24/25 10:00 04/26/25 09:41 80 MG Lidocaine 1 patch DAILY TOP 04/25/25 10:00 04/26/25 09:43 1 PATCH Docusate Sodium 100 mg BID PO 04/25/25 22:00 04/27/25 21:03 100 MG Acetaminophen/ Hydrocodone Bitart 1 tab Q6HP PRN PO 04/26/25 11:00 04/27/25 21:26 1 TAB Morphine Sulfate 1 mg Q6HP PRN IV 04/26/25 23:15 04/27/25 05:37 1 MG Enteral Nutritional Formula 240 ml BIDWM PO 04/27/25 18:00 04/27/25 18:00 240 ML Examination General Appearance: Cachectic, Alert, Oriented X3, Cooperative, No acute distress HEENT: Atraumatic, PERRLA, EOMI, Mucous membr. moist/pink Respiratory: Normal air movement Cardiovascular: Regular rate, Normal S1, Normal S2, No murmurs, no chest pain on palpation of the chest. Abdominal: Normal bowel sounds, Soft, No tenderness, No hepatospenomegaly, No masses : Costovertebral angle negative. Torrez catheter in place, with hematuria. Extremities: back pain 5/10. No clubbing, No cyanosis, No edema, Normal pulses, No tenderness/swelling Skin: No breakdown, No significant lesion Neuro: Normal gait, Normal speech, Strength at 5/5 X4 ext, Normal tone, Sensation intact, Cranial nerves 3-12 NL, Reflexes 2+ Psych/Mental Status: Mental status NL, Mood NL laboratory and microbiology Test 04/28/25 05:35 Range/Units Serum Glucose Pending Microbiology Date/Time Source Procedure Growth Status 04/21/25 10:32 Voided Urine Urine Culture - Final Complete Problem List/Assessment/Plan Problem List/Assessment/Plan 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 SS consult for chair time Avoid nephrotoxic drugs Hemodyalisis 04/23/25, 04/27/25 #Acute Severe Megaloblastic Anemia Hb 9 mg/dl 04/26/25 Type and screen Folic acid B12 levels 3 units were transfused. #CHF with systolic heart failure no exacerbation EF 14% in 2022 New ECHO: EF 45% (2024) Meds reconciliation #Acute Hyperkalemia Hyperkalemia protocol Bicarbonate drip Lokelma 10mg po bid Monitor potassium levels. #Chronic Severe Protein-Calorie Malnutrition in the setting of possible neoplasia Nutritional consult. PT evaluation Nutritional consult Ensure po bid #Chronic Hypertensive heart disease with systolic heart failure Med reconciliation Metoprolol 25mg po daily #Chronic PE Hold Eliquis due to hematuria SCD applied. #Chronic HIV Biktarvy po daily. Absolute count CD4: 107 Absolute count CD8:83 GI: pantoprazol DVT prophylaxis: eliquis on hold due to hematuria, SCD device Diet: renal diet. NPO after midnight due to Tunnel catheter placement. Code status: Full code PCP: [facility] [place] Goals of care discussed with patient >30min. Case and plan discussed with Dr. Rogel. Plan discussed with: Patient My Orders My Orders Orders - DENYS DIAMOND RESIDENT Procedure Category Date Status Time Pt Request For Service PT 04/27/25 Logged 14:23 Complete Blood Count LAB 04/28/25 In Process 04:00 Basic Metabolic Panel LAB 04/28/25 In Process 04:00 Dock Supervisor ORDERS 04/27/25 Transmitted 15:47 Nutritional PHA 04/27/25 In Process Supplements (Nepro 18:00 Consult For Nutrition NOURISH 04/27/25 Transmitted 16:52 Npo After Midnight ANDREY 04/27/25 In Process 20:14 Npo (Nothing By DIET 04/28/25 Transmitted Mouth) Diet Breakfast * Basket Grader CONS 04/28/25 Transmitted Consult Visit Coding STANDARD RES Billing Provider: JAYDA HUMMEL MD Date of Service if different f: Apr 28, 2025 Common Visit Codes: [id number] INP/OBS CARE(HIGH) DENYS DIAMOND RESIDENT Apr 28, 2025 06:33
[2025-04-28 06:42] LABS: Hemoglobin 8.0 g/dL (13.5-17.5)
[2025-04-28 06:46] LABS: Hematocrit 23.2 % (41.0-53.0); Mean Corpuscular Hemoglobin 33.2 pg (28.0-32.0); Mean Corpuscular Volume 95.9 fL (80.0-100.0); Nucleated Red Blood Cells % 0.1 %
[2025-04-28 06:53] LABS: Anion Gap 10 (5-15); Potassium 4.7 mmol/L (3.5-5.1); Sodium 140 mmol/L (136-145)
[2025-04-28 06:59] LABS: BUN/Creatinine Ratio 11.0 (10.0-20.0); Glucose 84 mg/dL (74-106)
[2025-04-28 07:00] LABS: Blood Urea Nitrogen 56 mg/dL (9-23); Calcium 8.5 mg/dL (8.7-10.4); Carbon Dioxide 32 mmol/L (20-31); Chloride 98 mmol/L (98-107)
[2025-04-28] MEDS: HEPARIN SODIUM (PORCINE) 5000 UNITS/ML 1ML VIAL ONE (10:03)
[2025-04-28] MEDS: LIDOCAINE 2%HCL (LOCAL ANESTH.) INJ 20ML MDV ONE (10:03)
[2025-04-28] MEDS: fentaNYL CITRATE 100 MCG/2 ML VL ONE (10:03)
[2025-04-28] MEDS: MIDAZOLAM HCL 2MG/2ML 2ml VIAL (1mg/ml) ONE (10:03)
--- NOTE | 2025-04-28 11:41 | DVHPN2 ---
Progress Note - Dictate Date Seen: Apr 28, 2025 Has the PT tested + for MRSA If YES, has PT been informed?: No Medical Necessity Reason Pt with a Central, PICC or Fol: Yes The following are medically ne: Torrez Catheter Reason for torrez catheter: Bladder Retention/Obstruc Medical Necessity Reason Bladder outlet obstruction Bladder tumors, s/p tURBT POD#1 Subjective No new issues vital signs Vital Sign Date Time Temp Pulse Resp B/P (MAP) Pulse Ox O2 Delivery O2 Flow Rate FiO2 04/28/25 11:14 84 12 128/65 (86) 94 04/28/25 08:00 Room Air* 0 21 04/28/25 05:00 99.6 99.6 Total Intake and Output 04/27/25 04/27/25 04/28/25 15:00 23:00 07:00 Intake Total 780 ml 600 ml Output Total 3200 ml 2750 ml Balance -2420 ml -2150 ml medications Current Medications Medications Dose Ordered Sig/Minna Route Start Time Stop Time Status Last Admin Dose Admin Atorvastatin Calcium 40 mg HS PO 04/20/25 22:00 04/27/25 21:04 40 MG Empaglifozin 10 mg DAILY PO 04/21/25 10:00 04/27/25 15:10 10 MG Metoprolol Succinate 25 mg DAILY PO 04/21/25 10:00 04/26/25 09:43 25 MG Patient Own Medication 1 tab DAILY PO 04/21/25 10:00 04/27/25 15:10 1 TAB Acetaminophen/ Hydrocodone Bitart 1 tab Q4HP PRN PO 04/20/25 21:15 Hold 04/23/25 22:47 1 TAB Ondansetron HCl 4 mg Q4HP PRN IV 04/20/25 21:15 04/25/25 23:44 4 MG Acetaminophen 650 mg Q6HP PRN PO 04/20/25 21:15 04/27/25 15:10 650 MG Clonidine HCl 0.1 mg Q6HP PRN PO 04/21/25 01:15 04/22/25 14:05 0.1 MG Calcium Acetate 667 mg TIDWMEALS PO 04/23/25 08:00 04/27/25 19:14 667 MG Morphine Sulfate 2 mg Q4HPRN PRN IV 04/23/25 10:15 UNV Morphine Sulfate 2 mg Q4HPRN PRN IV 04/23/25 10:15 Hold 04/26/25 09:42 2 MG Furosemide 80 mg DAILY IV 04/24/25 10:00 04/26/25 09:41 80 MG Lidocaine 1 patch DAILY TOP 04/25/25 10:00 04/26/25 09:43 1 PATCH Docusate Sodium 100 mg BID PO 04/25/25 22:00 04/27/25 21:03 100 MG Acetaminophen/ Hydrocodone Bitart 1 tab Q6HP PRN PO 04/26/25 11:00 04/28/25 07:52 1 TAB Morphine Sulfate 1 mg Q6HP PRN IV 04/26/25 23:15 04/27/25 05:37 1 MG Enteral Nutritional Formula 240 ml BIDWM PO 04/27/25 18:00 04/27/25 18:00 240 ML objective CBI slow drip. Will stop. Urine alexsandra pink laboratory and microbiology Laboratory Tests 04/28/25 05:35 Test 04/28/25 05:35 Range/Units Serum Glucose 84 74-106 mg/dL Problem List Renal Failure on HD Bladder cancer, s/p TURBT Urinary retention Assessment/Plan d/c CBI Torrez to gravity Discharge home with Torrez Plan discussed with: Other JOSE PEREZ MD Apr 28, 2025 11:41
--- NOTE | 2025-04-28 12:06 | DVH ---
XY Insertion of Venous Cath, HISTORY: TD CATH PROCEDURE: Informed consent was obtained. The patient was placed supine on the interventional table. A limited localization ultrasound of the right neck base was obtained. The right neck base and upper chest were prepped with chlorhexidine which was allowed to dry and draped in the usual sterile fashion. Time out was performed. IV sedation was administered. The skin and the soft tissues were infiltrated with 1% Lidocaine. With real-time ultrasound guidance, the internal jugular vein was accessed with a micropuncture kit, and an image documenting patency was recorded to PACS. A subcutaneous tunneled tract was created from the right upper chest to the venotomy site. A 14.5 [place], 23 cm long hemodialysis catheter was advanced through the tunneled tract. Fluoroscopy was used to advance a guidewire through the internal jugular vein into the inferior vena cava. Following serial dilatation, a 15 [place] peel-away sheath was introduced, though which was advanced the catheter into the right atrium. The catheter tip position was confirmed with fluoroscopy. There was satisfactory flow in both lumens. The catheter lumens were flushed with saline and heparin was left indwelling in the catheter. A post-procedure image of the chest was obtained. The neck incision site was closed with a Dermabond and dressed sterilely. The catheter was sutured at the skin surface and exit site also dressed sterilely. No immediate complication was identified. The old Marcelo catheter was removed. Hemostasis was obtained with manual pressure. Air Kerma 7 mGy FLUOROSCOPY TIME: 1.2 minutes. SEDATION: Dr. Hans Michaels was personally responsible for the administration of moderate sedation during the procedure performed, including the use of an independent trained observer who had no other duties during the procedure. The drugs utilized were IV fentanyl and versed (see nursing log for details). The total time of supervision by the attending physician was approximately 20 minutes. FINDINGS: Widely patent right IJV. Post procedure image demonstrates smooth course of the hemodialysis catheter with the tip in the right atrium. IMPRESSION: Placement of 14.5 [place], 23 cm long hemodialysis catheter through right internal jugular vein.
[2025-04-28] MEDS ORDERED: LACTULOSE 20Gm/30ML SOLN PO ONE (15:15)
[2025-04-28] MEDS ORDERED: DOCU-265 PO (16:22)
[2025-04-28] MEDS: LACTULOSE 20Gm/30ML SOLN PO ONE (16:22)
[2025-04-28] MEDS ORDERED: BACDST PO (16:22)
[2025-04-28] MEDS ORDERED: [UNRECOGNIZED DRUG - CODE] PO (16:22)
[2025-04-28] MEDS ORDERED: LACT10SO3 PO (16:23)
[2025-04-28] MEDS ORDERED: [UNRECOGNIZED DRUG - CODE] XX (16:27)
--- NOTE | 2025-04-28 17:38 | DVHDSRES ---
Discharge Summary Date of Admission Resident Creating Document: DENYS DIAMOND RESIDENT Apr 20, 2025 at 19:46 Date of Discharge: Apr 28, 2025 Admitting Diagnosis #Acute gross hematuria #ZHEN on CKD Stage V, possible obstructive #Acute azotemia possible obstructive #Acute Sterile pyuria #Bilateral hydronephrosis #Acute Severe Megaloblastic Anemia #CHF with systolic heart failure no exacerbation #Acute Hyperkalemia #Chronic Severe Protein-Calorie Malnutrition in the setting of possible neoplasia #Chronic Hypertensive heart disease with systolic heart failure #Chronic PE #Chronic HIV Wounds: No wounds on admission. Labs/Diagnostic Data: Laboratory Results Test 04/28/25 05:35 04/24/25 05:00 04/23/25 09:21 04/23/25 05:15 White Blood Count 4.1 10^3/uL (4.4-10.8) Red Blood Count 2.42 10^6/uL (4.5-5.90) Hemoglobin 8.0 g/dL (13.5-17.5) Hematocrit 23.2 % (41.0-53.0) Mean Corpuscular Volume 95.9 fL (80.0-100.0) Mean Corpuscular Hemoglobin 33.2 pg (28.0-32.0) Mean Corpuscular Hemoglobin Concent 34.6 g/dL (32.0-36.0) Red Cell Distribution Width 15.6 % (11.8-14.3) Platelet Count 163 10^3/uL (140-450) Mean Platelet Volume 6.8 fL (6.9-10.8) Neutrophils (%) (Auto) 64.5 % (37.0-80.0) Lymphocytes (%) (Auto) 17.0 % (10.0-50.0) Monocytes (%) (Auto) 13.8 % (0.0-12.0) Eosinophils (%) (Auto) 4.0 % (0.0-7.0) Basophils (%) (Auto) 0.7 % (0.0-2.0) Neutrophils # (Auto) 2.6 10 ^3/uL (1.6-8.6) Lymphocytes # (Auto) 0.7 10 ^3/uL (0.4-5.4) Monocytes # (Auto) 0.6 10 ^3/uL (0-1.3) Eosinophils # (Auto) 0.2 10 ^3/uL (0-0.8) Basophils # (Auto) 0 10 ^3/uL (0-0.2) Nucleated Red Blood Cells 0.1 % Sodium Level 140 mmol/L (136-145) Potassium Level 4.7 mmol/L (3.5-5.1) Chloride Level 98 mmol/L (98-107) Carbon Dioxide Level 32 mmol/L (20-31) Anion Gap 10 (5-15) Blood Urea Nitrogen 56 mg/dL (9-23) Creatinine 5.10 mg/dL (0.700-1.30) Glomerular Filtration Rate Calc 12 mL/min (>90) BUN/Creatinine Ratio 11.0 (10.0-20.0) Serum Glucose 84 mg/dL (74-106) Calcium Level 8.5 mg/dL (8.7-10.4) Prostate Specific Antigen > 500.00 ng/mL (0.0-4.0) Iron Level 30 ug/dL (65-175) Total Iron Binding Capacity 282 ug/dL (250-425) Percent Iron Saturation 10.6 % (20-55) Ferritin 572.0 ng/mL (22-322) POC Glucose 132 mg/dl (70-106) Triglycerides Level 122 mg/dL (< 150) Cholesterol Level 88 mg/dL (< 200) LDL Cholesterol 32 mg/dL (< 100) HDL Cholesterol 37 mg/dL (40-59) Thyroid Stimulating Hormone (TSH) 0.75 uIU/mL (0.55-4.78) Hepatitis B Surface Antigen Negative (Negative) Hepatitis B Surface Antibody Positive (Negative) Hepatitis C Antibody Negative (Negative) Test 04/22/25 19:18 04/21/25 15:11 04/21/25 10:32 04/21/25 08:50 Phosphorus Level 5.4 mg/dL (2.4-5.1) Absolute Neutrophils (auto) 4.5 x10E3/uL (1.4-7.0) Absolute Lymphocytes (auto) 0.3 x10E3/uL (0.7-3.1) Absolute Monocytes (auto) 0.6 x10E3/uL (0.1-0.9) Absolute Eosinophils (auto) 0.0 x10E3/uL (0.0-0.4) Absolute Basophils (auto) 0.0 x10E3/uL (0.0-0.2) Immature Granulocytes % 0 % (Not Estab.) Immature Granulocytes # 0 x10E3/uL (0.0-0.1) Immature Blood Cells (.) Hematology Comments (.) Percent CD4 Cells 35.6 % (30.8-58.5) Absolute CD4 Count 107 /uL (359-1519) T-Lymphocyte CD4/CD8 Ratio 1.29 (0.92-3.72) Percent CD8 Cells 27.5 % (12.0-35.5) Absolute CD8 Count 83 /uL (109-897) HIV-1 RNA (PCR) <20 copies/mL (.) HIV-1 RNA (PCR) log10 Value (.) Urine Creatinine 30.27 mg/dL (30.0-125.0) Urine Protein/Creatinine Ratio 1.06 Urine Total Protein 32.2 mg/dL (1-14) Urine Opiates Screen Neg (NEGATIVE) Urine Fentanyl Screen Neg (NEGATIVE) Urine Barbiturates Screen Neg (NEGATIVE) Urine Phencyclidine Screen Neg (NEGATIVE) Urine Amphetamines Screen Neg (NEGATIVE) Urine Benzodiazepines Screen Neg (NEGATIVE) Urine Cocaine Screen Neg (NEGATIVE) Urine Cannabinoids Screen Neg (NEGATIVE) Prothrombin Time 11.9 sec (9.3-11.8) Prothrombin Time INR 1.14 (0.9-1.15) Activated Partial Thromboplast Time 26.7 SEC (24.5-34.5) Anti-Nuclear Antibody Comment Comment (.) Cytoplasmic ANCA (c-ANCA) Antibody <1:20 titer (Neg:<1:20) Anti-Proteinase 3 (c-ANCA) <0.2 units (0.0-0.9) Atypical p-ANCA <1:20 titer (Neg:<1:20) Perinuclear ANCA (p-ANCA) Antibody <1:20 titer (Neg:<1:20) Myeloperoxidase Antibody <0.2 units (0.0-0.9) JOSEFINA-1 Antibody <0.2 AI (0.0-0.9) SS-A/Ro Antibody <0.2 AI (0.0-0.9) SS-B/La Antibody <0.2 AI (0.0-0.9) Sm Antibody <0.2 AI (0.0-0.9) SUPERVISOR LENS GENERATING Antibody <0.2 AI (0.0-0.9) Scl-70 (Scleroderma) Antibody <0.2 AI (0.0-0.9) Anti-Double Strand DNA Antibody <1 IU/mL (0-9) Chromatin Antibody <0.2 AI (0.0-0.9) Centromere B Antibody <0.2 AI (0.0-0.9) Complement C3 149 mg/dL (82-167) Complement C4 23 mg/dL (12-38) Test 04/21/25 04:52 04/20/25 16:07 04/20/25 16:06 Erythrocyte Sedimentation Rate 103 mm/hr (0-20) Hemoglobin A1c 4.8 % A1C (<5.7) Magnesium Level 1.7 mg/dL (1.6-2.6) Gamma Glutamyl Transpeptidase 43 U/L (<73) Vitamin B12 Level 264 pg/mL (211-911) Vitamin D 25-Hydroxy 26.1 ng/mL (30.0-100) Folic Acid 7.15 ng/mL (>5.38) Parathyroid Hormone (Intact) 354.9 pg/mL (18.4-80.1) Urine Color Colorless (Yellow) Urine Clarity Clear (Clear) Urine pH 5.5 (5.0-9.0) Urine Specific [place] 1.009 (1.001-1.035) Urine Protein Trace (Negative) Urine Ketones Negative (Negative) Urine Blood 3+ /uL (Negative) Urine Nitrite Negative (Negative) Urine Bilirubin Negative (Negative) Urine Urobilinogen Normal mg/dL (Negative) Urine Leukocyte Esterase Negative /uL (Negative) Urine RBC 272 /hpf (0 - 3) Urine Microscopic WBC 22 /HPF (0-3) Urine Squamous Epithelial Cells None seen /hpf (<5) Urine Bacteria Few /hpf (None Seen) Urine Glucose 2+ mg/dL (Normal) Lactic Acid Level 1.4 mmol/L (0.4-2.0) Total Bilirubin < 0.2 mg/dL (0.2-1.0) Direct Bilirubin < 0.1 mg/dL (<0.3) Aspartate Amino Transferase (AST) 20 U/L (13-40) Alanine Aminotransferase (ALT) 20 U/L (7-40) Alkaline Phosphatase 163 U/L (46-116) Troponin I High Sensitivity 19 ng/L (</=54) B-Type Natriuretic Peptide 664.79 pg/mL (0-100) Total Protein 7.6 g/dL (5.7-8.2) Albumin 4.3 g/dL (3.2-4.8) Other Laboratory Tests 04/28/25 05:35 Brief Hx & Hospital Course: PHI: Raul Abdalla is a 64-year-old male with past medical history of CHF (EF 14%) , HTN, PE (on Eliquis), [place], CKD and HIV (1994, on anti-retroviral therapy). The patient came to the [facility] ED with chief complain of 2 week of noticing blood in his urine. He states that initially it was david blood with clots that improved to a pinkish color with the days. The patient reported being on Eliquis due to a pulmonary embolism diagnosed last year. On further questioning, he reports unintentional weight lost of approximate 10 pounds. The patient also reported 1 week of bilateral leg cramping, this prompted his visit to the ED. The patient denies chest pain or shortness for breath. In the ED the UA report hematuria and CT abdomen showed thickening of bladder wall and bladder with Multifocal sclerotic osseous lesions suspicious for metastatic disease. The bladder US showed a mass. The patient was admitted for further assessment and management. Hospital Course: During his admission in [facility] the patient was examined and evaluated at bedside. Vital signs, labs, chart were reviewed every day. Due to gross hematuria, Eliquis was hold and urology team was consulted, they requested a Miller catheter and cystoscopy. A 3 way Miller catheter with continues irrigation was placed, Miller catheter was draining gross hematuria with clots. During his admission, the patient received total of 3 RBC units. Due to CKD, nephrology team was on board, patient was started and bicarb drip for hyperkalemia, also hyperkalemia protocol was given, Due to stage V CKD and azotemia a Marcelo catheter was placed and hemodyalisis was done. Urology rescheduled cystoscopy on 04/22 due to azotemia and low hemoglobin. On 04/26/25, The patient reported today back pain 5/10, probably due to bone metastasis; lidocaine patch, warm compresses and analgesics were ordered. On 04/27/25, .The patient's hemoglobin improved to 8.8mg/dl. On 05/04/25, the patient underwent cytoscopy and biopsies were taken: There were multifocal tumor masses involving posterior wall, right posterior wall, trigone, bladder neck and prostatic urethra. Using the loop electrocautery, they resected the bladder tumors in its entirety. The UO was not damaged and demonstrated clear ureteral jetting. Lesion was >5cm in total surface area. No complications during the procedure. The patient had a second hemodyalisis on 04/27/25. The patient had a tunnel catheter placed on 04/28/25. Glass Blowing Instructor were consult for dialysis chair time, the patient was assigned to [facility] for hemodyalisis on MW. Due to HIV diagnosis with low CD4 count, the patient was started on prophylaxis with Bactrim. Due to clinical improvement the patient was discharge home and will follow up in the d/c clinic for biopsy results. The patient will follow up with PCP, nephrology and Dr. Perez (Urology) in 1 week. Patient was recommended to not to drive until cleared by urology. Also, will follow up recommendations from urology on when to resume Eliquis. All questions were answered satisfactorily. ROS: Constitutional: weight loss, no fever no chills. HEENT: Denies changes in vision and hearing. Respiratory: denies of cough, nasal congestion Cardiovascular: Denies chest discomfort or palpitations GI: denies abdominal, nausea, vomiting and diarrhea. : no dysuria. Musculoskeletal: denies edema/ Skin: Denies rash and pruritus. Neurologic: denies dizziness Physcical Examination General Appearance: Cachectic, Alert, Oriented X3, Cooperative, No acute distress HEENT: Atraumatic, PERRLA, EOMI, Mucous membr. moist/pink Respiratory: Normal air movement Cardiovascular: Regular rate, Normal S1, Normal S2, No murmurs, no chest pain on palpation of the chest. Abdominal: Normal bowel sounds, Soft, No tenderness, No hepatospenomegaly, No masses : Costovertebral angle negative. Miller catheter in place.. Extremities: back pain 5/10. No clubbing, No cyanosis, No edema, Normal pulses, No tenderness/swelling Skin: No breakdown, No significant lesion Neuro: Normal gait, Normal speech, Strength at 5/5 X4 ext, Normal tone, Sensation intact, Cranial nerves 3-12 NL, Reflexes 2+ Psych/Mental Status: Mental status NL, Mood NL D/C Plan: Continue Renal Diet Lasix 40mg po daily F/u with Urology with Dr. Perez F/u d/c clinic for bladder biopsy results within 1 week. F/u with Nephrology in 1 week. F/u with [facility] center: for hemodialysis MWF: 6:30pm at the [facility] location ([address] [place] [address] phone number [phone]-first day to be tomorrow Sunday 04/29. Continue with Miller catheter upon discharge, follow urology recommendation on when to removed it or change it. Follow recommendation for when to resume Eliquist per Urology instructions. Consults/Reason for consult Urology: Hematuria Nephrology: Azotemia +CKD stage V Operations or Procedures PROCEDURE(s): ABPL - CT AB PEL WO CON-NO ORAL OR IV REASON: Hematuria ORDER NUMBER(s): [id number], ACCESSION NUMBER(s): [id number] EXAM: CT CT AB PEL WO CON-NO ORAL OR IV HISTORY: Hematuria COMPARISON STUDY: None TECHNIQUE: Multidetector CT of the abdomen and pelvis was performed from lung bases to pubic symphysis. Imaging was performed without IV contrast. Axial, coronal, and sagittal multiplanar reformats were obtained from the axial data set by the technologist. RADIATION DOSE: CTDI vol 5.5 mGy. DLP 311.9 mGy.cm FINDINGS: Limited evaluation of the solid organs in the absence of IV contrast. Lungs: The lung bases are clear. Liver: Unremarkable. Spleen: Unremarkable. Pancreas: Unremarkable. Gallbladder: Unremarkable. Adrenals: Unremarkable Kidneys: Severe bilateral hydroureteronephrosis. No obstructing calculus. Pelvic Viscera: Abnormal wall thickening of the right posterior aspect of the urinary bladder. Vasculature: Atherosclerotic aortoiliac calcification. Retroperitoneum: Probable retroperitoneal adenopathy, suboptimally assessed in the absence of IV contrast. Bowel: No bowel obstruction. Musculoskeletal: Multifocal sclerotic lesions most pronounced within the L3 and L4 vertebral bodies. Soft tissues: Unremarkable IMPRESSION: 1. Abnormal wall thickening of the right posterior aspect of the urinary bladder, neoplasm cannot be excluded. Correlation with cystoscopy is suggested. 2. Severe bilateral hydroureteronephrosis. 3. Multifocal sclerotic osseous lesions suspicious for metastatic disease in the appropriate clinical setting. 4. Additional findings as detailed. EDURE(s): CXR1 - CHEST XRAY 1 VIEW REASON: r/o pna ORDER NUMBER(s): [id number], ACCESSION NUMBER(s): [id number] CHEST RADIOGRAPH Indication: r/o pna Technique: Single frontal view of the chest was obtained COMPARISON: CT CT ANGIO CHEST CONTRAST on DOS: 12/29/22, XY CHEST PORTABLE on DOS: 12/29/22, XY CHEST TWO VIEWS ROUTINE on DOS: 12/12/22 FINDINGS: Lines and Tubes: None Lungs: Increased interstital prominence. This may represent pulmonary vascular congestion and/or viral pneumonia. Pleura: No effusion.No pneumothorax. Cardiomediastinal contours: Unremarkable Bones: Unremarkable IMPRESSION: Increased interstitial prominence. This may represent pulmonary vascular congestion and/or viral pneumonia. ATED BY: ELEAZAR CHAVES MD DICTATED DATE/TIME: 04/20/25 1716 PROCEDURE(s): KIDUS - KIDNEY REASON: Renal failure ORDER NUMBER(s): [id number], ACCESSION NUMBER(s): [id number] INDICATION: Renal failure TECHNIQUE: Multiple real-time sonographic images of the kidneys and bladder were obtained. COMPARISON: ECHO 2D MODE CARDIAC DOP on DOS: 12/30/22 FINDINGS: RIGHT kidney measures 11.8 cm in length. Severe hydronephrosis. LEFT kidney measures 8.8 cm in length. Severe hydronephrosis. Solid-appearing mass along the posterior aspect of the urinary bladder measuring 6.1 x 1.9 x 3.0 cm. Prevoid volume 793 cc. Postvoid volume 362 cc. IMPRESSION: Intraluminal bladder mass concerning for malignancy. Incomplete voiding with significant postvoid residual of 362 cc. Severe bilateral hydronephrosis. ATED BY: PILAR STEVENS MD DICTATED DATE/TIME: 04/20/25 2311 PROCEDURE(s): CXR1 - CHEST XRAY 1 VIEW REASON: Marcelo catheter placement ORDER NUMBER(s): [id number], ACCESSION NUMBER(s): [id number] CHEST RADIOGRAPH INDICATION: Marcelo catheter placement TECHNIQUE: Single frontal view of the chest was obtained COMPARISON: XY CHEST XRAY 1 VIEW on DOS: 04/20/25, XY CHEST PORTABLE on DOS: 12/29/22 FINDINGS: Lines and Tubes: Marcelo catheter in place below the right clavicle. No pneumothorax Lungs: No focal consolidation. Pleura: No effusion. No pneumothorax. Cardiomediastinal contours: Unremarkable Bones: No acute osseous abnormality. IMPRESSION: 1. Marcelo catheter in place from the right with the tip just below the right clavicle. 2. No pneumothorax ATED BY: GAGANDEEP MAYES Jr., DO DICTATED DATE/TIME: 04/23/25 1153 PROCEDURE(s): INVENCAT - Insertion of Venous Cath REASON: TD CATH ORDER NUMBER(s): [id number], ACCESSION NUMBER(s): [id number] Insertion of Venous Cath, HISTORY: TD CATH PROCEDURE: Informed consent was obtained. The patient was placed supine on the interventional table. A limited localization ultrasound of the right neck base was obtained. The right neck base and upper chest were prepped with chlorhexidine which was allowed to dry and draped in the usual sterile fashion. Time out was performed. IV sedation was administered. The skin and the soft tissues were infiltrated with 1% Lidocaine. With real-time ultrasound guidance, the internal jugular vein was accessed with a micropuncture kit, and an image documenting patency was recorded to PACS. A subcutaneous tunneled tract was created from the right upper chest to the venotomy site. A 14.5 [place], 23 cm long hemodialysis catheter was advanced through the tunneled tract. Fluoroscopy was used to advance a guidewire through the internal jugular vein into the inferior vena cava. Following serial dilatation, a 15 [place] peel-away sheath was introduced, though which was advanced the catheter into the right atrium. The catheter tip position was confirmed with fluoroscopy. There was satisfactory flow in both lumens. The catheter lumens were flushed with saline and heparin was left indwelling in the catheter. A post-procedure image of the chest was obtained. The neck incision site was closed with a Dermabond and dressed sterilely. The catheter was sutured at the skin surface and exit site also dressed sterilely. No immediate complication was identified. The old Marcelo catheter was removed. Hemostasis was obtained with manual pressure. Air Kerma 7 mGy FLUOROSCOPY TIME: 1.2 minutes. SEDATION: Dr. Hans Michaels was personally responsible for the administration of moderate sedation during the procedure performed, including the use of an independent trained observer who had no other duties during the procedure. The drugs utilized were IV fentanyl and versed (see nursing log for details). The total time of supervision by the attending physician was approximately 20 minutes. FINDINGS: Widely patent right IJV. Post procedure image demonstrates smooth course of the hemodialysis catheter with the tip in the right atrium. IMPRESSION: Placement of 14.5 [place] [address], 23 cm long hemodialysis catheter through right internal jugular vein. ATED BY: LEO MICHAELS MD PROCEDURE(s): EKG - ELECTROCARDIGRAM ORDER NUMBER(s): [id number], ACCESSION NUMBER(s): [id number] [facility] Test Date: 2025-04-22 Test Time: 10:57:47 Pat Name: RAUL DANIEL Department: Room: 027 Gender: M Principal Biostatistician: TANI : 1960 Requested By: DENYS DIAMOND Order Number: [id number] Reading MD: Elver Mora Measurements Intervals [place] Rate: 104 P: 61 CA: 135 QRS: -15 QRSD: 92 T: 135 QT: 321 QTc: 423 Interpretive Statements Sinus tachycardia Borderline left axis deviation Nonspecific T abnrm, anterolateral leads Electronically Signed On 04-23-2025 17:30:07 PST by Elver Mora Please click the below link to view image of tracing. DICTATED BY:ELVER MROA Sr., MD DICTATED DATE/TIME:04/22/25 1057 ELECTRONICALLY SIGNED BY:ELVER MORA Sr., MD 04/23/25 4823 ELECTRONICALLY CO-SIGNED BY: ORDERING PHYSICIAN: PROCEDURE(s): ORDER NUMBER(s): , ACCESSION NUMBER(s): Procedure - OPERATIVE REPORT Pre-op. Diagnosis: Gross hematuria ESRD Bladder mass Post-op. Diagnosis: Same as pre-op diagnosis Operation: Transurethral resection of bladder tumors Bladder Biopsy Anesthesia: General Indications: Patient is admitted to [facility] with gross hematuria, ESRD on dialysis and findings of bladder mass on CT scan. Indications, risks, complications, alternatives and benefits of transurethral resection of bladder tumor were discussed with the patient. All questions were encouraged and answered. Patient is aware of risks/complications including but not limited to infection, bleeding, bladder injury requiring additional procedures, urethral stricture formation and possible need for additional procedures. Patient consented to proceed. Details of Procedure: The patient was brought to the operating room and placed upon the table. After induction of anesthesia, patient was placed in the dorsal lithotomy position. Patient's genitalia and perineal regions were prepped and draped in standard surgical fashion. A rigid resectoscope was assembled and introduced into the urinary bladder. Clots were evacuated with [place]. The entire contour of the bladder was evaluated. There were multifocal tumor masses involving posterior wall, right posterior wall, trigone, bladder neck and prostatic urethra. . Using the loop electrocautery, I resected the bladder tumors in its entirety. The UO was not damaged and demonstrated clear ureteral jetting. Lesion was >5cm in total surface area. Chips were then evacuated. Bladder Biopsy - There was a suspicious area just beyond this tumor mass that was also biopsied and send off separately. Hemostasis was established and no bleeding was noted with inflow of irrigation stopped. At this point a 20Fr [address] way Miller Catheter was inserted and put to a leg bag. General anesthesia was reversed. The patient tolerated the procedure well and was then transferred to the recovery room in satisfactory condition. EBL - minimal Specimens: Bladder tumors: posterior wall, trigone Bladder Biopsy of bladder neck (L) and prostate urethral lesions Complications: None Findings: Notes: Findings suggest local adjacent organ metastasis. JOSE PEREZ MD Apr 27, 2025 09:32 DICTATED BY: JOSE PEREZ MD DICATED DATE/TIME: 04/27/25931 SIGNED BY: JOSE PEREZ MD <<Signature on File>> SIGNED DATE/TIME: 04/27/25931 PROCEDURE(s): INVENCAT - Insertion of Venous Cath REASON: TD CATH ORDER NUMBER(s): [id number], ACCESSION NUMBER(s): [id number] Insertion of Venous Cath, HISTORY: TD CATH PROCEDURE: Informed consent was obtained. The patient was placed supine on the interventional table. A limited localization ultrasound of the right neck base was obtained. The right neck base and upper chest were prepped with chlorhexidine which was allowed to dry and draped in the usual sterile fashion. Time out was performed. IV sedation was administered. The skin and the soft tissues were infiltrated with 1% Lidocaine. With real-time ultrasound guidance, the internal jugular vein was accessed with a micropuncture kit, and an image documenting patency was recorded to PACS. A subcutaneous tunneled tract was created from the right upper chest to the venotomy site. A 14.5 [place], 23 cm long hemodialysis catheter was advanced through the tunneled tract. Fluoroscopy was used to advance a guidewire through the internal jugular vein into the inferior vena cava. Following serial dilatation, a 15 [place] peel-away sheath was introduced, though which was advanced the catheter into the right atrium. The catheter tip position was confirmed with fluoroscopy. There was satisfactory flow in both lumens. The catheter lumens were flushed with saline and heparin was left indwelling in the catheter. A post-procedure image of the chest was obtained. The neck incision site was closed with a Dermabond and dressed sterilely. The catheter was sutured at the skin surface and exit site also dressed sterilely. No immediate complication was identified. The old Marcelo catheter was removed. Hemostasis was obtained with manual pressure. Air Kerma 7 mGy FLUOROSCOPY TIME: 1.2 minutes. SEDATION: Dr. Hans Michaels was personally responsible for the administration of moderate sedation during the procedure performed, including the use of an independent trained observer who had no other duties during the procedure. The drugs utilized were IV fentanyl and versed (see nursing log for details). The total time of supervision by the attending physician was approximately 20 minutes. FINDINGS: Widely patent right IJV. Post procedure image demonstrates smooth course of the hemodialysis catheter with the tip in the right atrium. IMPRESSION: Placement of 14.5 [place] [address], 23 cm long hemodialysis catheter through right internal jugular vein. 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 #ZHEN on CKD Stage V, possible obstructive, on hemodyalisis #Acute azotemia possible obstructive #Acute Sterile pyuria #Bilateral hydronephrosis #Acute Severe Megaloblastic Anemia #CHF with systolic heart failure no exacerbation #Acute Hyperkalemia #Chronic Severe Protein-Calorie Malnutrition in the setting of possible neoplasia #Chronic Hypertensive heart disease with systolic heart failure #Chronic PE #Chronic HIV Discharge Disposition: Home SNF Discharge Will this Physician continue t: No Discharge Instruct/Medications Diet: Renal Activity: No Restrictions, As Tolerated Follow Up/Referral: F/u with nephrology in 1 week F/u with Urulogy with Dr. Perez in 1 week F/u d/c clinic for bladder biopsy report within 1 week. F/u with [facility]: for hemodialysis MWF: 630pm at the [place] location ([address] [place] [address] phone number [phone]-first day to be tomorrow Sunday 04/29. Medications: Bactrim 800/160mg po daily prophylaxis Lasix 40mg po daily Follow recommendation for when to resume [place] per Urology instructions. Scheduled Atorvastatin Calcium (Lipitor), 1 TAB PO DAILY Qzieevybsku-Evkbptbqystlm-Svqg (Biktarvy 50-200-25 mg), 1 TAB PO DAILY, (Reported) Docusate Sodium (Docusate Sodium), 100 MG PO BID Empagliflozin (Jardiance), 10 MG PO DAILY Furosemide (Lasix), 40 MG PO DAILY Metoprolol Succinate (Toprol Xl), 1 TAB PO DAILY Nutritional Supplements (Nepro with Carbsteady), 240 ML PO BIDWM Sulfamethoxazole W/Trimethopri (Bactrim Ds Tablet), 1 TAB PO DAILY Scheduled PRN Lactulose (Lactulose), 10 GM PO DAILY PRN Miscellaneous Medications Acetaminophen (Tylenol), 500 MG PO, (Reported) Ondansetron HCl (Ondansetron), 4 MG PO, (Reported) Potassium Chloride (Potassium Chloride Cr), 8 MEQ PO, (Reported) Discontinued Medications Apixaban Base (Eliquis), 5 MG PO BID Apixaban Base (Eliquis), 10 MG PO BID Naproxen (Naproxen), 500 MG PO BID Durable Medical Equipment Misc. Devices (Classics Rolling Walker), MIS XX, (DME) Discharge Statement: "Patient was advised to return to the ER or call 911 if any headaches, dizziness, shortness of breath, chest pain, abdominal pain, bleeding, fevers, or worsening of medical condition. Patient was counseled about treatment plan, medications, possible side effects, patientverbalized understanding. All questions were answered to the best of my ability. 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 Code status: Full code PCP: [facility] Discharge plan discussed with patient >30min, the patient agreed with the discharge plan. Case and plan discussed with Dr. Rogel. Visit Coding STANDARD RES Billing Provider: JAYDA HUMMEL MD Date of Service if different f: Apr 28, 2025 Common Visit Codes: 66848-RAZ/OBS DISCH DAY >30min DENYS DIAMOND RESIDENT Apr 28, 2025 17:38
[2025-04-29] MEDS ORDERED: SODIUM CHL 0.9% 1000 ML BAG XX ONE (07:00)
[2025-04-29] MEDS ORDERED: SULFAMETHOX W/TRIMETH(800/160MG) DS TAB PO SCH (10:00)
[2025-04-29] MEDS ORDERED: EPOETIN ALFA-EPBX 10,000 UNIT/1ML VIAL SC ONE (21:00)
== END 2025-04-28 19:00 | disposition home or self-care (01) | DRG 461 ==
LOC: ER 13:17 → OVERFLOW 19:46 → TELE-WESTW 23:38 → WEST WING 04-22 10:04 → TELE-WESTW 04-23 21:49 → WEST WING 04-27 17:10
PROVIDERS: ADMIT Student in an Organized Health Care Education/Training Program; ATTEND Student in an Organized Health Care Education/Training Program
PROC: 30233N1 Transfusion of Nonautologous Red Blood Cells into Peripheral Vein, Percutaneous Approach (ICD-10-PCS; principal; 2025-04-22)
PROC: 02HV33Z Insertion of Infusion Device into Superior Vena Cava, Percutaneous Approach (ICD-10-PCS; 2025-04-23)
PROC: 5A1D70Z Performance of Urinary Filtration, Intermittent, Less than 6 Hours Per Day (ICD-10-PCS; 2025-04-23)
PROC: 5A1D70Z Performance of Urinary Filtration, Intermittent, Less than 6 Hours Per Day (ICD-10-PCS; 2025-04-24)
PROC: 0TBB8ZX Excision of Bladder, Via Natural or Artificial Opening Endoscopic, Diagnostic (ICD-10-PCS; 2025-04-27)
PROC: 5A1D70Z Performance of Urinary Filtration, Intermittent, Less than 6 Hours Per Day (ICD-10-PCS; 2025-04-27)
PROC: 0JH63XZ Insertion of Tunneled Vascular Access Device into Chest Subcutaneous Tissue and Fascia, Percutaneous Approach (ICD-10-PCS; 2025-04-28)
PROC: 02H633Z Insertion of Infusion Device into Right Atrium, Percutaneous Approach (ICD-10-PCS; 2025-04-28)
PROC: B548ZZA Ultrasonography of Superior Vena Cava, Guidance (ICD-10-PCS; 2025-04-28)
PROC: B518ZZA Fluoroscopy of Superior Vena Cava, Guidance (ICD-10-PCS; 2025-04-28)
DX: C67.9 Malignant neoplasm of bladder, unspecified (principal); I13.2 Hypertensive heart and chronic kidney disease with heart failure and with stage 5 chronic kidney disease, or end stage renal disease; E43 Unspecified severe protein-calorie malnutrition; E87.20 Acidosis, unspecified; I27.82 Chronic pulmonary embolism; C79.51 Secondary malignant neoplasm of bone; D53.1 Other megaloblastic anemias, not elsewhere classified; N13.6 Pyonephrosis; I50.22 Chronic systolic (congestive) heart failure; N18.5 Chronic kidney disease, stage 5; N17.9 Acute kidney failure, unspecified; Z68.1 Body mass index [BMI] 19.9 or less, adult; E87.6 Hypokalemia; E87.5 Hyperkalemia; F17.210 Nicotine dependence, cigarettes, uncomplicated; M54.16 Radiculopathy, lumbar region; Z83.3 Family history of diabetes mellitus; Z82.49 Family history of ischemic heart disease and other diseases of the circulatory system
CPT/HCPCS: 36415; 36556; 36558; 71045; 74176; 76775; 77001; 80048; 80061; 80076; 80307; 81001; 82306; 82570; 82607; 82728; 82746; 82962; 82977; 83036; 83516; 83520; 83540; 83550; 83605; 83735; 83880; 83970; 84100; 84132; 84153; 84156; 84443; 84484; 85025; 85610; 85652; 85730; 86160; 86225; 86235; 86256; 86360; 86706; 86803; 86850; 86900; 86901; 86920; 87040; 87086; 87340; 87536; 90935; 93005; 93306; 94640; 96365; 96375; 97163; 99152; A4344; C1894; G0378; J1642; J1815; J2003; J2250; J2405; J2704; J7060

== ENCOUNTER 2025-05-03 04:00 | Inpatient (IN) | payer MEDICAID ==
[~2025-05-03] VITALS: Ht 177.8 cm; Wt 61.8 kg
[~2025-05-03 04:00] MED LIST changes: +ACET-1079 PO; -APIX5TAB PO; +BACDST PO; -CLIN1CAP70 PO; +DOCU-265 PO; +LACT10SO3 PO; -NAPR-746 PO; +ONDA-155 PO; +POTA-36 PO; -SACU1TAB PO; +[UNRECOGNIZED DRUG - CODE] PO; +[UNRECOGNIZED DRUG - CODE] XX
--- NOTE | 2025-05-03 04:55 | ED.PDOC ---
History of Present Illness HPI Comments 64-year-old male who came to ER due to abnormal labs. 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 Patient underwent bladder/ prostate biopsy do ne. Yesterday, at around noon, patient received a call informing him the biopsy results showed positive for prostate cancer, he was advice to go to the ER Chief Complaint: Abnormal LAB's Time Seen by MD: 04:54 Primary Care Provider: AUDI Reviewed Notes: Nurses Notes Allergies: Coded Allergies: NO KNOWN ALLERGIES (Unverified , 12/11/16) Home Meds Active Scripts Misc. Devices (Classics Rolling Walker) 1 Mis Mis, MIS XX, #1 For ambulation Prov:ALEKSANDR CEJA RESIDENT 04/28/25 Lactulose (Lactulose) 10 Gm/15 Ml Arpita, 10 GM PO DAILY PRN for 10 Days, #10 ML [facility] 04/28/25 Sulfamethoxazole W/Trimethopri (Bactrim Ds Tablet) 1 Tab Tb, 1 TAB PO DAILY for 90 Days, #90 TAB [facility] 04/28/25 Nutritional Supplements (Nepro with Carbsteady) 1 Liq Liq, 240 ML PO BIDWM for 30 Days, #90 LIQ Prov:MARCIALALEKSANDR [facility] 04/28/25 Docusate Sodium (Docusate Sodium) 100 Mg Cap, 100 MG PO BID for 30 Days, #60 CAP Prov:ALEKSANDR CEJA [facility] 04/28/25 Empagliflozin (Jardiance) 10 Mg Tab, 10 MG PO DAILY for 30 Days, #30 TAB Prov:JESSICA LOOMIS MD 01/02/23 Atorvastatin Calcium (Lipitor) 40 Mg Tab, 1 TAB PO DAILY, #30 TAB 5 Refills Prov:JESSICA LOOMIS MD 01/02/23 Furosemide (Lasix) 40 Mg Tab, 40 MG PO DAILY for 30 Days, #30 TAB Prov:JESSIAC LOOMIS MD 01/02/23 Metoprolol Succinate (Toprol Xl) 25 Mg Tab, 1 TAB PO DAILY, #30 TAB 5 Refills Prov:JESSICA LOOMIS MD 01/02/23 Reported Medications Ondansetron HCl (Ondansetron) 4 Mg Tab, 4 MG PO, TAB 04/21/25 Potassium Chloride (POTASSIUM CHLORIDE CR) 10 Meq Tb, 8 MEQ PO, TAB 04/21/25 Acetaminophen (Tylenol) 325 Mg Tb, 500 MG PO, TAB 04/21/25 Fzfdcubqsqn-Rbxgpmokrveog-Kbcj (Biktarvy 50-200-25 mg) 1 Tab Tab, 1 TAB PO DAILY 12/29/22 Discontinued Scripts Naproxen (Naproxen) 500 Mg Tab, 500 MG PO BID, #30 TAB Prov:BORIS BOLDEN 09/05/24 Apixaban Base (ELIQUIS) 5 Mg Tab, 10 MG PO BID for 7 Days, #14 TAB 10MG BID X 7 DAYS THEN 5MG PO BID FOR AT LEAST 6 MONTHS FOR DVT/PE TREATMENT Prov:JESSICA LOOMIS MD 01/02/23 Apixaban Base (ELIQUIS) 5 Mg Tab, 5 MG PO BID for 30 Days, #60 TAB Prov:JESSICA LOOMIS MD 01/02/23 Information Source: Patient Mode of Arrival: Wheelchair Past Medical History PAST MEDICAL HISTORY: Cancer, CHF, ESRD, HIV Surgical History: Hernia Repair Surgical History (Other): Dialysis Sunday Family History Family History: Reviewed,noncontributory to illness, Unknown Social History Smoker: Cigarettes Alcohol: Denies ETOH Use Drugs: Marijuana Lives In: Home Constitutional: denies: chills, diaphoresis, fatigue, fever, malaise, sweats, weakness, others EENTM: denies: blurred vision, double vision, ear bleeding, ear discharge, ear drainage, ear pain, ear ringing, eye pain, eye redness, hearing loss, mouth pain, mouth swelling, nasal discharge, nose bleeding, nose congestion, nose pain, photophobia, tearing, throat pain, throat swelling, voice changes, others Respiratory: denies: cough, hemoptysis, orthopnea, SOB at rest, shortness of breath, SOB with excertion, stridor, wheezing, others Cardiovascular: denies: chest pain, dizzy spells, diaphoresis, Dyspnea on exertion, edema, irregular heart beat, left arm pain, lightheadedness, palpitations, PND, syncope, others Gastrointestinal: denies: abdomen distended, abdominal pain, blood streaked bowels, constipated, diarrhea, dysphagia, difficulty swallowing, hematemesis, melena, nausea, poor appetite, poor fluid intake, rectal bleeding, rectal pain, vomiting, others Genitourinary: denies: burning, dysuria, flank pain, frequency, hematuria, incontinence, penile discharge, penile sore, pain, testicle pain, testicle swelling, urgency, others Neurological: denies: dizziness, fainting, headache, left sided numbness, left sided weakness, numbness, paresthesia, pre-existing deficit, right sided numbness, right sided weakness, seizure, speech problems, tingling, tremors, weakness, others Musculoskeletal: denies: back pain, gout, joint pain, joint swelling, muscle pain, muscle stiffness, neck pain, others Integumetry: denies: bruises, change in color, change in hair/nails, dryness, laceration, lesions, lumps, rash, wounds, others Allergic/Immunocompromised: denies: Difficulty Healing, Frequent Infections, Hives, Itching, others Hematologic/Lymphatic: denies: anemia, blood clots, easy bleeding, easy bruising, swollen glands, others Endocrine: denies: excessive hunger, excessive sweating, excessive thirst, excessive urination, flushing, intolerance to cold, intolerance to heat, unexplained weight gain, unexplained weight loss, others Psychiatric: denies: anxiety, bipolar disorder, depression, hopeless, panic disorder, schizophrenia, sleepless, suicidal, others Physical Exam General Appearance: No Apparent Distress, Normal HEENT: Normal ENT Inspection, Pharynx Normal, TMs Normal Neck: Full Range of Motion, Non-Tender, Normal, Normal Inspection Respiratory: Chest Non-Tender, Lungs Clear, No Accessory Muscle Use, No Respiratory Distress, Normal Breath Sounds Cardiovascular: No Edema, No JVD, No Murmur, No Gallop, Normal Peripheral Pulse s, Regular Rate/Rhythm Breast Exam: Deferred Gastrointestinal: No Organomegaly, Non Tender, No Pulsatile Mass, Normal Bowel Sounds, Soft Genitalia: Deferred Pelvic: Deferred Rectal: Deferred Extremities: No calf tenderness, Normal capillary refill, Normal inspection, Normal range of motion, Non-tender, No pedal edema Musculoskeletal : Apperance: Normal Neurologic: Alert, fire alarm technician II-XII nml as Tested, No Motor Deficits, Normal Affect, Normal Mood, No Sensory Deficits Cerebellar Function: Normal Reflexes: Normal Skin: Dry, Normal Color, Warm Lymphatic: No Adenopathy Was a procedure done? Was a procedure done?: No Differential Dx Considerations may include: Anemia, electrolyte imbalance, prostate cancer, bladder cancer X-Ray, Labs, Meds, VS Vital Signs Date Time Temp Pulse Resp B/P (MAP) Pulse Ox O2 Delivery O2 Flow Rate FiO2 05/03/25 04:11 98.0 98 14 136/76 95 98.0 Lab Test 05/03/25 05:32 Range/Units White Blood Count 3.4 L 4.4-10.8 10^3/uL Red Blood Count 2.30 L 4.5-5.90 10^6/uL Hemoglobin 7.7 L 13.5-17.5 g/dL Hematocrit 22.0 L 41.0-53.0 % Mean Corpuscular Volume 95.7 80.0-100.0 fL Mean Corpuscular Hemoglobin 33.4 H 28.0-32.0 pg Mean Corpuscular Hemoglobin Concent 34.9 32.0-36.0 g/dL Red Cell Distribution Width 15.4 H 11.8-14.3 % Platelet Count 213 140-450 10^3/uL Mean Platelet Volume 6.5 L 6.9-10.8 fL Neutrophils (%) (Auto) 58.1 37.0-80.0 % Lymphocytes (%) (Auto) 24.7 10.0-50.0 % Monocytes (%) (Auto) 12.6 H 0.0-12.0 % Eosinophils (%) (Auto) 3.4 0.0-7.0 % Basophils (%) (Auto) 1.2 0.0-2.0 % Neutrophils # (Auto) 2.0 1.6-8.6 10 ^3/uL Lymphocytes # (Auto) 0.8 0.4-5.4 10 ^3/uL Monocytes # (Auto) 0.4 0-1.3 10 ^3/uL Eosinophils # (Auto) 0.1 0-0.8 10 ^3/uL Basophils # (Auto) 0 0-0.2 10 ^3/uL Nucleated Red Blood Cells 0.0 % Prothrombin Time Pending Prothrombin Time INR Pending Activated Partial Thromboplast Time Pending Sodium Level Pending Potassium Level Pending Chloride Level Pending Carbon Dioxide Level Pending Anion Gap Pending Blood Urea Nitrogen Pending Creatinine Pending Glomerular Filtration Rate Calc Pending BUN/Creatinine Ratio Pending Serum Glucose Pending Lactic Acid Level Pending Calcium Level Pending Total Bilirubin Pending Aspartate Amino Transferase (AST) Pending Alanine Aminotransferase (ALT) Pending Alkaline Phosphatase Pending B-Type Natriuretic Peptide Pending Total Protein Pending Albumin Pending Time of 1ST Reevaluation: 04:51 Reevaluation 1ST: Unchanged Patient Education/Counseling: Diagnosis, Treatment Family Education/Counseling: No Family Present SEPSIS Sepsis Screen Date sepsis recognized/suspect: May 03, 2025 Time Sepsis recognized/suspect: 410 Recent Procedure: No On Antibiotic Therapy: No Respiratory Rate >20: No Heart Rate >90: Yes Temp<36 C (96.8 F) or >38.3 C: No SBP <90 or MAP <65 mmHG: No New Acute Mental Status Change: No Is the patient on CPAP, BIPAP,: No Physician Orders Comprehensive Metabolic Panel (05/03/25 04:46) Urinalysis (05/03/25 04:46) PTPTT (05/03/25 04:46) Blood Culture (05/03/25 04:46) Lactic Acid W/ Reflex Order (05/03/25 04:46) Electrocardigram (05/03/25 04:47) B-Type Natriuretic Peptide (05/03/25 04:47) Chest Xray 1 View (05/03/25 04:47) Vital Signs Date Time Temp Pulse Resp B/P (MAP) Pulse Ox O2 Delivery O2 Flow Rate FiO2 05/03/25 04:11 98.0 98 14 136/76 95 98.0 Laboratory Tests Test 05/03/25 05:32 Lactic Acid Level Pending White Blood Count 3.4 10^3/uL (4.4-10.8) L Departure 1 Departure Time of Disposition: 07:00 Impression: Primary Impression: ESRD on dialysis Additional Impressions: Bladder cancer Intermediate coronary syndrome Disposition: 09 ADMITTED INPATIENT Admit to: Tele Condition: Guarded Comments 64-year-old male with history of end-stage renal failure on dialysis and bladder cancer versus prostate cancer. Dr. Marie from Urology wanted him to get admitted for further workup. He has been feeling some shortness of breath and chest tightness. Patient was given aspirin. He does have a Miller catheter in place. Patient will need to be admitted for supportive care and further workup Critical Care Note Critical Care Time?: No Stability Stability form required: No Heart Score Heart Score: Heart Score Response (Comments) Value History N/A 0 EKG N/A 0 Age N/A 0 Risk Factors N/A 0 Troponin N/A 0 Total 0 I personally scribed for RAQUEL VORA MD ([email or web address]) on 05/03/25 at 04:54. Electronically submitted by Eliceo Sneed ([email or web address]). I personally scribed for RAQUEL VORA MD ([email or web address]) on 05/03/25 at 04:57. Electronically submitted by Eliceo Sneed ([email or web address]). RAQUEL VORA MD May 03, 2025 04:54
[2025-05-03 06:04] LABS: Hematocrit 22.0 % (41.0-53.0); Hemoglobin 7.7 g/dL (13.5-17.5); Mean Corpuscular Hemoglobin 33.4 pg (28.0-32.0); Mean Corpuscular Volume 95.7 fL (80.0-100.0); Nucleated Red Blood Cells % 0.0 %
[2025-05-03 06:16] LABS: Alanine Aminotransferase 19 U/L (7-40); Albumin 3.8 g/dL (3.2-4.8); Anion Gap 10 (5-15); BUN/Creatinine Ratio 9.7 (10.0-20.0); Calcium 8.8 mg/dL (8.7-10.4); Carbon Dioxide 28 mmol/L (20-31); Chloride 103 mmol/L (98-107); Glucose 86 mg/dL (74-106); Potassium 5.1 mmol/L (3.5-5.1); Sodium 141 mmol/L (136-145); Total Protein 6.8 g/dL (5.7-8.2)
[2025-05-03 06:17] LABS: Alkaline Phosphatase 152 U/L (46-116); Bilirubin, Total 0.2 mg/dL (0.2-1.0); Blood Urea Nitrogen 47 mg/dL (9-23); INR 1.04 (0.9-1.15); Partial Thromboplastin Time 25.1 SEC (24.5-34.5); Prothrombin Time 11.0 sec (9.3-11.8)
[2025-05-03 06:54] LABS: Urine Budding Yeast OCCASIONAL /hpf (None Seen); Urine Protein, UAD 3+ (Negative)
--- NOTE | 2025-05-03 07:27 | DVH ---
CHEST RADIOGRAPH INDICATION: SOB TECHNIQUE: Single frontal view of the chest was obtained COMPARISON: XY CHEST XRAY 1 VIEW on DOS: 04/23/25, XY CHEST XRAY 1 VIEW on DOS: 04/20/25, XY CHEST PORTABLE on DOS: 12/29/22, XY CHEST TWO VIEWS ROUTINE on DOS: 12/12/22 FINDINGS: Lines and Tubes: Right-sided central venous catheter seen with tip in the right atrium. Lungs: Clear Pleura: No effusion. No pneumothorax. Cardiomediastinal contours: Unremarkable Bones: Unremarkable IMPRESSION: 1. No acute cardiopulmonary disease.
[2025-05-03] MEDS ORDERED: TEMAZEPAM 15 MG CAP PO PRN (09:45)
[2025-05-03] MEDS ORDERED: ONDANSETRON HCL 4 MG/2 ML VIAL IV PRN (09:45)
[2025-05-03] MEDS ORDERED: DOCUSATE SOD 100 MG CAP PO PRN (09:45)
[2025-05-03] MEDS ORDERED: NITROGLYCERIN 0.4 MG SL TAB SL PRN (09:45)
[2025-05-03] MEDS ORDERED: MORPHINE SULFATE 4 MG/ML SYR/VIAL IV PRN (10:15)
[2025-05-03 10:39] LABS: Hematocrit 23.2 % (41.0-53.0); Hemoglobin 8.1 g/dL (13.5-17.5); Mean Corpuscular Hemoglobin 33.8 pg (28.0-32.0); Mean Corpuscular Volume 96.9 fL (80.0-100.0); Nucleated Red Blood Cells % 0.1 %
--- NOTE | 2025-05-03 11:15 | DVHINCON2 ---
Date of service: May 03, 2025 Referring Physician Jenni Alba nurse practitioner Reason for Consultation End-stage renal disease to manage hemodialysis History of Present Illness Patient is [age]-year-old male with past medical history significant for bladder cancer Cancer, obstructive uropathy CHF, hypertension, ESRD on hemodialysis every Sunday and Sunday, and HIV is admitted after was called by Dr. Marie to come to the hospital. On admission Nephrology is consulted to manage his hemodialysis Past Medical History PAST MEDICAL HISTORY: Bladder cancer, CHF, ESRD, HIV, hyper Past Surgical History Hernia Repair, tunneled IJ hemodialysis catheter Allergies: Coded Allergies: NO KNOWN ALLERGIES (Unverified , 12/11/16) Home Meds Active Scripts Misc. Devices (Classics Rolling Walker) 1 Mis Mis, MIS XX, #1 For ambulation Prov:ALEKSANDR CEJA 04/28/25 Lactulose (Lactulose) 10 Gm/15 Ml Arpita, 10 GM PO DAILY PRN for 10 Days, #10 ML Prov:ALEKSANDR CEJA 04/28/25 Sulfamethoxazole W/Trimethopri (Bactrim Ds Tablet) 1 Tab Tb, 1 TAB PO DAILY for 90 Days, #90 TAB Prov:ALEKSANDR CEJA 04/28/25 Nutritional Supplements (Nepro with Carbsteady) 1 Liq Liq, 240 ML PO BIDWM for 30 Days, #90 LIQ Prov:ALEKSANDR CEJA 04/28/25 Docusate Sodium (Docusate Sodium) 100 Mg Cap, 100 MG PO BID for 30 Days, #60 CAP Prov:ALEKSANDR CEJA 04/28/25 Empagliflozin (Jardiance) 10 Mg Tab, 10 MG PO DAILY for 30 Days, #30 TAB Prov:JESSICA LOOMIS MD 01/02/23 Atorvastatin Calcium (Lipitor) 40 Mg Tab, 1 TAB PO DAILY, #30 TAB 5 Refills Prov:JESSICA LOOMIS MD 01/02/23 Furosemide (Lasix) 40 Mg Tab, 40 MG PO DAILY for 30 Days, #30 TAB Prov:JESSICA LOOMIS MD 01/02/23 Metoprolol Succinate (Toprol Xl) 25 Mg Tab, 1 TAB PO DAILY, #30 TAB 5 Refills Prov:JESSICA LOOMIS MD 01/02/23 Reported Medications Ondansetron HCl (Ondansetron) 4 Mg Tab, 4 MG PO, TAB 04/21/25 Potassium Chloride (POTASSIUM CHLORIDE CR) 10 Meq Tb, 8 MEQ PO, TAB 04/21/25 Acetaminophen (Tylenol) 325 Mg Tb, 500 MG PO, TAB 04/21/25 Oytpzdhonwt-Ymbnatagfmter-Yztf (Biktarvy 50-200-25 mg) 1 Tab Tab, 1 TAB PO DAILY 12/29/22 Discontinued Scripts Naproxen (Naproxen) 500 Mg Tab, 500 MG PO BID, #30 TAB Prov:BORIS BOLDEN 09/05/24 Apixaban Base (ELIQUIS) 5 Mg Tab, 10 MG PO BID for 7 Days, #14 TAB 10MG BID X 7 DAYS THEN 5MG PO BID FOR AT LEAST 6 MONTHS FOR DVT/PE TREATMENT Prov:JESSICA LOOMIS MD 01/02/23 Apixaban Base (ELIQUIS) 5 Mg Tab, 5 MG PO BID for 30 Days, #60 TAB Prov:JESSICA LOOMIS MD 01/02/23 Current Medications Current Medications Medications (Trade) Dose Ordered Sig/Minna Route PRN Reason Start Time Stop Time Status Last Admin Docusate Sodium (Colace Capsule) 100 mg BID PO 05/03/25 10:00 05/03/25 12:02 Empaglifozin (Jardiance) 10 mg DAILY PO 05/03/25 10:00 05/03/25 12:01 Atorvastatin Calcium (Lipitor) 40 mg HS PO 05/03/25 22:00 Patient Own Medication 1 tab DAILY PO 05/03/25 10:00 05/03/25 10:00 Metoprolol Succinate (Toprol Xl) 25 mg DAILY PO 05/04/25 10:00 Furosemide (Lasix Tablet) 40 mg DAILY PO 05/03/25 10:00 05/03/25 12:01 Temazepam (Restoril) 15 mg QHSP PRN PO FOR INSOMNIA 05/03/25 09:45 Ondansetron HCl (Zofran) 4 mg Q4HP PRN IV NAUSEA / VOMITING 05/03/25 09:45 Docusate Sodium (Colace Capsule) 100 mg BIDPRN PRN PO FOR CONSTIPATION 05/03/25 09:45 Morphine Sulfate 2 mg Q4HPRN PRN IV SEVERE PAIN (7-10 PAIN SCALE) 05/03/25 10:15 Nitroglycerin (Ntrostat Sublingual) 0.4 mg Q5MINP PRN SL FOR CHEST PAIN 05/03/25 09:45 Family History: Diabetes mellitus G8 MOTHER FH: cancer G8 FATHER FH: heart attack G8 FATHER FH: heart failure G8 MOTHER Review of Systems All 12 item review of systems reviewed with the patient nonsignificant except what is mentioned in the history of present illness H&P Exam Vital Signs/I&O Vital Sign Date Time Temp Pulse Resp B/P (MAP) Pulse Ox O2 Delivery O2 Flow Rate FiO2 05/03/25 12:01 133/70 05/03/25 11:59 98.2 80 18 97 98.2 05/03/25 06:37 Room Air Physical Exam Patient is awake alert Lungs clear to auscultation bilaterally Cardiac exam regular rate and rhythm GI soft nontender Miller catheter Extremities no clubbing cyanosis or edema Neuro nonfocal Labs/Diagnostic Data Labs/Diagnostic Data Laboratory Tests Test 05/03/25 09:59 05/03/25 05:42 05/03/25 05:32 Range/Units White Blood Count 4.0 L 3.4 L 4.4-10.8 10^3/uL Red Blood Count 2.40 L 2.30 L 4.5-5.90 10^6/uL Hemoglobin 8.1 L 7.7 L 13.5-17.5 g/dL Hematocrit 23.2 L 22.0 L 41.0-53.0 % Mean Corpuscular Volume 96.9 95.7 80.0-100.0 fL Mean Corpuscular Hemoglobin 33.8 H 33.4 H 28.0-32.0 pg Mean Corpuscular Hemoglobin Concent 34.9 34.9 32.0-36.0 g/dL Red Cell Distribution Width 15.3 H 15.4 H 11.8-14.3 % Platelet Count 209 213 140-450 10^3/uL Mean Platelet Volume 6.5 L 6.5 L 6.9-10.8 fL Neutrophils (%) (Auto) 62.2 58.1 37.0-80.0 % Lymphocytes (%) (Auto) 21.8 24.7 10.0-50.0 % Monocytes (%) (Auto) 12.3 H 12.6 H 0.0-12.0 % Eosinophils (%) (Auto) 2.7 3.4 0.0-7.0 % Basophils (%) (Auto) 1.0 1.2 0.0-2.0 % Neutrophils # (Auto) 2.5 2.0 1.6-8.6 10 ^3/uL Lymphocytes # (Auto) 0.9 0.8 0.4-5.4 10 ^3/uL Monocytes # (Auto) 0.5 0.4 0-1.3 10 ^3/uL Eosinophils # (Auto) 0.1 0.1 0-0.8 10 ^3/uL Basophils # (Auto) 0 0 0-0.2 10 ^3/uL Nucleated Red Blood Cells 0.1 0.0 % Urine Color Colorless Yellow Urine Clarity Turbid H Clear Urine pH 7.5 5.0-9.0 Urine Specific [place] 1.013 1.001-1.035 Urine Protein 3+ H Negative Urine Ketones Negative Negative Urine Blood 3+ H Negative /uL Urine Nitrite Negative Negative Urine Bilirubin Negative Negative Urine Urobilinogen Normal Negative mg/dL Urine Leukocyte Esterase 3+ Negative /uL Urine RBC 753 0 - 3 /hpf Urine Microscopic WBC 17 H 0-3 /HPF Urine Squamous Epithelial Cells None seen <5 /hpf Urine Bacteria Few H None Seen /hpf Urine Mucus Few None Seen Urine Yeast (Budding) Occasional None Seen /hpf Urine Sperm Present None Seen /hpf Urine Glucose 3+ H Normal mg/dL Prothrombin Time 11.0 9.3-11.8 sec Prothrombin Time INR 1.04 0.9-1.15 Activated Partial Thromboplast Time 25.1 24.5-34.5 SEC Sodium Level 141 136-145 mmol/L Potassium Level 5.1 3.5-5.1 mmol/L Chloride Level 103 98-107 mmol/L Carbon Dioxide Level 28 20-31 mmol/L Anion Gap 10 5-15 Blood Urea Nitrogen 47 H 9-23 mg/dL Creatinine 4.83 H 0.700-1.30 mg/dL Glomerular Filtration Rate Calc 13 >90 mL/min BUN/Creatinine Ratio 9.7 L 10.0-20.0 Serum Glucose 86 74-106 mg/dL Lactic Acid Level 0.7 0.4-2.0 mmol/L Calcium Level 8.8 8.7-10.4 mg/dL Phosphorus Level 4.0 2.4-5.1 mg/dL Magnesium Level 2.0 1.6-2.6 mg/dL Total Bilirubin 0.2 0.2-1.0 mg/dL Aspartate Amino Transferase (AST) 29 13-40 U/L Alanine Aminotransferase (ALT) 19 7-40 U/L Alkaline Phosphatase 152 H 46-116 U/L B-Type Natriuretic Peptide 359.69 0-100 pg/mL Total Protein 6.8 5.7-8.2 g/dL Albumin 3.8 3.2-4.8 g/dL Assessment End-stage renal disease on hemodialysis Obstructive uropathy Bladder cancer Bilateral hydronephrosis Hypertension Hematuria HIV Anemia of chronic kidney disease Recommendation Next hemodialysis 05/05, use no heparin Epogen 30304 subQ 3 times Miller catheter Strict I&Os Resume home medications Blood pressure control Urology consult We will continue to follow Patient seen and examined by myself in the ER. I discussed my plan of care with the patient and primary nurse at the bedside I will Jenni for the consult, will Plan discussed with: Patient CHET CUNNINGHAM MD May 03, 2025 11:15
--- NOTE | 2025-05-03 11:22 | DVHINCON2 ---
Date of service: May 03, 2025 Referring Physician Hospitalist Reason for Consultation Metastatic prostate cancer PSA >500 Bilateral hydronephrosis Oliguria s/p TURBT History of Present Illness 64-year-old male with recent diagnosis of metastatic prostate cancer, s/p TURBT on 04/27/25 with PSA >500.was sent to [facility] for admission by me. He has been c/o oliguira and LE swelling despite indwelling Miller catheter. Given his new findings of metastatic prostate cancer, I suspected bilateral ureteral obstructions from the retroperitoneal tumors/lymphadenopathy. Patient was discharged here last April 28 after his TURBT. I was informed by the pathologist on 05/01/25 that all of the resected bladder tumors were indeed prostate cancer. 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 He will need to undergo reevaluation with renal/bladder US, bone scan and undergo bilateral PNT vs. cystoscopy with bilateral ureteral stents placement. Eliquis has been on hold. Chief Complaint: Oliguria Primary Care Provider: AUDI Reviewed Notes: Nurses Notes Allergies: Coded Allergies: NO KNOWN ALLERGIES (Unverified , 12/11/16) Home Meds Active Scripts Misc. Devices (Classics Rolling Walker) 1 Mis Mis, MIS XX, #1 For ambulation Prov:ALEKSANDR CEJA 04/28/25 Lactulose (Lactulose) 10 Gm/15 Ml Arpita, 10 GM PO DAILY PRN for 10 Days, #10 ML Prov:ALEKSANDR CEJA 04/28/25 Sulfamethoxazole W/Trimethopri (Bactrim Ds Tablet) 1 Tab Tb, 1 TAB PO DAILY for 90 Days, #90 TAB Prov:ALEKSANDR CEJA 04/28/25 Nutritional Supplements (Nepro with Carbsteady) 1 Liq Liq, 240 ML PO BIDWM for 3 0 Days, #90 LIQ Prov:ALEKSANDR CEJA 04/28/25 Docusate Sodium (Docusate Sodium) 100 Mg Cap, 100 MG PO BID for 30 Days, #60 CAP Prov:ALEKSANDR CEJA 04/28/25 Empagliflozin (Jardiance) 10 Mg Tab, 10 MG PO DAILY for 30 Days, #30 TAB Prov:JESSICA LOOMIS MD 01/02/23 Atorvastatin Calcium (Lipitor) 40 Mg Tab, 1 TAB PO DAILY, #30 TAB 5 Refills Prov:JESSICA LOOMIS MD 01/02/23 Furosemide (Lasix) 40 Mg Tab, 40 MG PO DAILY for 30 Days, #30 TAB Prov:JESSICA LOOMIS MD 01/02/23 Metoprolol Succinate (Toprol Xl) 25 Mg Tab, 1 TAB PO DAILY, #30 TAB 5 Refills Prov:JESSICA LOOMIS MD 01/02/23 Reported Medications Ondansetron HCl (Ondansetron) 4 Mg Tab, 4 MG PO, TAB 04/21/25 Potassium Chloride (POTASSIUM CHLORIDE CR) 10 Meq Tb, 8 MEQ PO, TAB 04/21/25 Acetaminophen (Tylenol) 325 Mg Tb, 500 MG PO, TAB 04/21/25 Wmrvskkwpnv-Huestydwxmkwf-Agww (Biktarvy 50-200-25 mg) 1 Tab Tab, 1 TAB PO DAILY 12/29/22 Discontinued Scripts Naproxen (Naproxen) 500 Mg Tab, 500 MG PO BID, #30 TAB Prov:BORIS BOLDEN 09/05/24 Apixaban Base (ELIQUIS) 5 Mg Tab, 10 MG PO BID for 7 Days, #14 TAB 10MG BID X 7 DAYS THEN 5MG PO BID FOR AT LEAST 6 MONTHS ON HOLD FOR DVT/PE TREATMENT Prov:JESSICA LOOMIS MD 01/02/23 Apixaban Base (ELIQUIS) 5 Mg Tab, 5 MG PO BID for 30 Days, #60 TAB Prov:JESSICA LOOMIS MD 01/02/23 Information Source: Patient Mode of Arrival: Wheelchair Past Medical History Prostate Cancer, CHF, ESRD, HIV Past Surgical History Hernia Repair TURBT (04/27/25) Surgical History (Other): Dialysis Sunday Family History: Diabetes mellitus G8 MOTHER FH: cancer G8 FATHER FH: heart attack G8 FATHER FH: heart failure G8 MOTHER Allergies: Coded Allergies: NO KNOWN ALLERGIES (Unverified , 12/11/16) Home Meds Active Scripts Misc. Devices (Classics Rolling Walker) 1 Mis Mis, MIS XX, #1 For ambulation Prov:ALEKSANDR CEJA RESIDENT 04/28/25 Lactulose (Lactulose) 10 Gm/15 Ml Arpita, 10 GM PO DAILY PRN for 10 Days, #10 ML Prov[facility] 04/28/25 Sulfamethoxazole W/Trimethopri (Bactrim Ds Tablet) 1 Tab Tb, 1 TAB PO DAILY for 90 Days, #90 TAB [facility] 04/28/25 Nutritional Supplements (Nepro with Carbsteady) 1 Liq Liq, 240 ML PO BIDWM for 30 Days, #90 LIQ Prov:[facility] 04/28/25 Docusate Sodium (Docusate Sodium) 100 Mg Cap, 100 MG PO BID for 30 Days, #60 CAP Prov[facility] 04/28/25 Empagliflozin (Jardiance) 10 Mg Tab, 10 MG PO DAILY for 30 Days, #30 TAB Prov:JESSICA LOOMIS MD 01/02/23 Atorvastatin Calcium (Lipitor) 40 Mg Tab, 1 TAB PO DAILY, #30 TAB 5 Refills Prov:JESSICA LOOMIS MD 01/02/23 Furosemide (Lasix) 40 Mg Tab, 40 MG PO DAILY for 30 Days, #30 TAB Prov:JESSICA LOOMIS MD 01/02/23 Metoprolol Succinate (Toprol Xl) 25 Mg Tab, 1 TAB PO DAILY, #30 TAB 5 Refills Prov:JESSICA LOOMIS MD 01/02/23 Reported Medications Ondansetron HCl (Ondansetron) 4 Mg Tab, 4 MG PO, TAB 04/21/25 Potassium Chloride (POTASSIUM CHLORIDE CR) 10 Meq Tb, 8 MEQ PO, TAB 04/21/25 Acetaminophen (Tylenol) 325 Mg Tb, 500 MG PO, TAB 04/21/25 Atxqxvbgweb-Qfztdcszaaqtt-Emep (Biktarvy 50-200-25 mg) 1 Tab Tab, 1 TAB PO DAILY 12/29/22 Discontinued Scripts Naproxen (Naproxen) 500 Mg Tab, 500 MG PO BID, #30 TAB Prov:BORIS BOLDEN 09/05/24 Apixaban Base (ELIQUIS) 5 Mg Tab, 10 MG PO BID for 7 Days, #14 TAB 10MG BID X 7 DAYS THEN 5MG PO BID FOR AT LEAST 6 MONTHS FOR DVT/PE TREATMENT Prov:JESSICA LOOMIS MD 01/02/23 Apixaban Base (ELIQUIS) 5 Mg Tab, 5 MG PO BID for 30 Days, #60 TAB Prov:JESSICA LOOMIS MD 01/02/23 Current Medications Current Medications Medications (Trade) Dose Ordered Sig/Minna Route PRN Reason Start Time Stop Time Status Last Admin Docusate Sodium (Colace Capsule) 100 mg BID PO 05/03/25 10:00 Empaglifozin (Jardiance) 10 mg DAILY PO 05/03/25 10:00 Atorvastatin Calcium (Lipitor) 40 mg HS PO 05/03/25 22:00 Patient Own Medication 1 tab DAILY PO 05/03/25 10:00 Metoprolol Succinate (Toprol Xl) 25 mg DAILY PO 05/04/25 10:00 Furosemide (Lasix Tablet) 40 mg DAILY PO 05/03/25 10:00 Temazepam (Restoril) 15 mg QHSP PRN PO FOR INSOMNIA 05/03/25 09:45 Ondansetron HCl (Zofran) 4 mg Q4HP PRN IV NAUSEA / VOMITING 05/03/25 09:45 Docusate Sodium (Colace Capsule) 100 mg BIDPRN PRN PO FOR CONSTIPATION 05/03/25 09:45 Morphine Sulfate 2 mg Q4HPRN PRN IV SEVERE PAIN (7-10 PAIN SCALE) 05/03/25 10:15 Nitroglycerin (Ntrostat Sublingual) 0.4 mg Q5MINP PRN SL FOR CHEST PAIN 05/03/25 09:45 Review of Systems Constitutional: denies: chills, diaphoresis, fatigue, fever, malaise, sweats, weakness, others EENTM: denies: blurred vision, double vision, ear bleeding, ear discharge, ear drainage, ear pain, ear ringing, eye pain, eye redness, hearing loss, mouth pain, mouth swelling, nasal discharge, nose bleeding, nose congestion, nose pain, photophobia, tearing, throat pain, throat swelling, voice changes, others Respiratory: denies: cough, hemoptysis, orthopnea, SOB at rest, shortness of breath, SOB with excertion, stridor, wheezing, others Cardiovascular: denies: chest pain, dizzy spells, diaphoresis, Dyspnea on exertion, edema, irregular heart beat, left arm pain, lightheadedness, palpitat ions, PND, syncope, others Gastrointestinal: denies: abdomen distended, abdominal pain, blood streaked bow els, constipated, diarrhea, dysphagia, difficulty swallowing, hematemesis, melena, nausea, poor appetite, poor fluid intake, rectal bleeding, rectal pain, vomiting, others Genitourinary: denies: burning, dysuria, flank pain, frequency, hematuria, incontinence, penile discharge, penile sore, pain, testicle pain, testicle swelling, urgency, others Neurological: denies: dizziness, fainting, headache, left sided numbness, left sided weakness, numbness, paresthesia, pre-existing deficit, right sided numbness, right sided weakness, seizure, speech problems, tingling, tremors, weakness, others Musculoskeletal: denies: back pain, gout, joint pain, joint swelling, muscle pain, muscle stiffness, neck pain, others Integumetry: denies: bruises, change in color, change in hair/nails, dryness, laceration, lesions, lumps, rash, wounds, others Allergic/Immunocompromised: denies: Difficulty Healing, Frequent Infections, Hives, Itching, others Hematologic/Lymphatic: denies: anemia, blood clots, easy bleeding, easy bruising, swollen glands, others Endocrine: denies: excessive hunger, excessive sweating, excessive thirst, excessive urination, flushing, intolerance to cold, intolerance to heat, unexplained weight gain, unexplained weight loss, others Psychiatric: denies: anxiety, bipolar disorder, depression, hopeless, panic disorder, schizophrenia, sleepless, suicidal, others Vital Signs Vital Signs Date Time Temp Pulse Resp B/P (MAP) Pulse Ox O2 Delivery O2 Flow Rate FiO2 05/03/25 09:09 98.4 81 18 143/75 (97) 98 98.4 05/03/25 06:37 Room Air Physical Exam General Appearance: No Apparent Distress, Normal HEENT: Normal ENT Inspection, Pharynx Normal, TMs Normal Neck: Full Range of Motion, Non-Tender, Normal, Normal Inspection Respiratory: Chest Non-Tender, Lungs Clear, No Accessory Muscle Use, No Respiratory Distress, Normal Breath Sounds Cardiovascular: No Edema, No JVD, No Murmur, No Gallop, Normal Peripheral Pulses, Regular Rate/Rhythm Breast Exam: Deferred Gastrointestinal: No Organomegaly, Non Tender, No Pulsatile Mass, Normal Bowel Sounds, Soft Genitalia: Miller catheter in place Extremities: No calf tenderness, Normal capillary refill, Normal inspection, Normal range of motion, Non-tender, No pedal edema Musculoskeletal : Apperance: Normal Neurologic: Alert, industrial cleaning technician II-XII nml as Tested, No Motor Deficits, Normal Affect, Normal Mood, No Sensory Deficits Cerebellar Function: Normal Reflexes: Normal Skin: Dry, Normal Color, Warm Lymphatic: No Adenopathy Labs/Diagnostic Data Labs Test 05/03/25 09:59 05/03/25 05:42 05/03/25 05:32 Range/Units White Blood Count 4.0 L 4.4-10.8 10^3/uL Red Blood Count 2.40 L 4.5-5.90 10^6/uL Hemoglobin 8.1 L 13.5-17.5 g/dL Hematocrit 23.2 L 41.0-53.0 % Mean Corpuscular Volume 96.9 80.0-100.0 fL Mean Corpuscular Hemoglobin 33.8 H 28.0-32.0 pg Mean Corpuscular Hemoglobin Concent 34.9 32.0-36.0 g/dL Red Cell Distribution Width 15.3 H 11.8-14.3 % Platelet Count 209 140-450 10^3/uL Mean Platelet Volume 6.5 L 6.9-10.8 fL Neutrophils (%) (Auto) 62.2 37.0-80.0 % Lymphocytes (%) (Auto) 21.8 10.0-50.0 % Monocytes (%) (Auto) 12.3 H 0.0-12.0 % Eosinophils (%) (Auto) 2.7 0.0-7.0 % Basophils (%) (Auto) 1.0 0.0-2.0 % Neutrophils # (Auto) 2.5 1.6-8.6 10 ^3/uL Lymphocytes # (Auto) 0.9 0.4-5.4 10 ^3/uL Monocytes # (Auto) 0.5 0-1.3 10 ^3/uL Eosinophils # (Auto) 0.1 0-0.8 10 ^3/uL Basophils # (Auto) 0 0-0.2 10 ^3/uL Nucleated Red Blood Cells 0.1 % Urine Color Colorless Yellow Urine Clarity Turbid H Clear Urine pH 7.5 5.0-9.0 Urine Specific [place] 1.013 1.001-1.035 Urine Protein 3+ H Negative Urine Ketones Negative Negative Urine Blood 3+ H Negative /uL Urine Nitrite Negative Negative Urine Bilirubin Negative Negative Urine Urobilinogen Normal Negative mg/dL Urine Leukocyte Esterase 3+ Negative /uL Urine RBC 753 0 - 3 /hpf Urine Microscopic WBC 17 H 0-3 /HPF Urine Squamous Epithelial Cells None seen <5 /hpf Urine Bacteria Few H None Seen /hpf Urine Mucus Few None Seen Urine Yeast (Budding) Occasional None Seen /hpf Urine Sperm Present None Seen /hpf Urine Glucose 3+ H Normal mg/dL Prothrombin Time 11.0 9.3-11.8 sec Prothrombin Time INR 1.04 0.9-1.15 Activated Partial Thromboplast Time 25.1 24.5-34.5 SEC Sodium Level 141 136-145 mmol/L Potassium Level 5.1 3.5-5.1 mmol/L Chloride Level 103 98-107 mmol/L Carbon Dioxide Level 28 20-31 mmol/L Anion Gap 10 5-15 Blood Urea Nitrogen 47 H 9-23 mg/dL Creatinine 4.83 H 0.700-1.30 mg/dL Glomerular Filtration Rate Calc 13 >90 mL/min BUN/Creatinine Ratio 9.7 L 10.0-20.0 Serum Glucose 86 74-106 mg/dL Lactic Acid Level 0.7 0.4-2.0 mmol/L Calcium Level 8.8 8.7-10.4 mg/dL Total Bilirubin 0.2 0.2-1.0 mg/dL Aspartate Amino Transferase (AST) 29 13-40 U/L Alanine Aminotransferase (ALT) 19 7-40 U/L Alkaline Phosphatase 152 H 46-116 U/L B-Type Natriuretic Peptide 359.69 0-100 pg/mL Total Protein 6.8 5.7-8.2 g/dL Albumin 3.8 3.2-4.8 g/dL Assessment Metastatic prostate cancer Bilateral hydronephrosis ZHEN Oliguria due to bilateral ureteral obstruction Plan/Recommendation Renal US/Bladder US to confirm bilateral hydronephrosis and check for ureteral jetting Bone Scan for metastatic workup continue with Miller NPO after midnight Cystoscopy with bilateral ureteral stents and bilateral orchiectomy IR consultation for bilateral nephrostomy tubes placement in case stents placement unsuccessful. Plan discussed with: Patient, Other JOSE PEREZ MD May 03, 2025 11:22
[2025-05-03 11:54] LABS: Magnesium 2.0 mg/dL (1.6-2.6)
[2025-05-03 11:59] VITALS: BP 133/70; PULSE 80; RESP 18; TEMP 98.2; O2SAT 97
[2025-05-03] MEDS: FUROSEMIDE 40 MG TAB PO SCH (12:01)
[2025-05-03] MEDS: EMPAGLIFLOZIN 10 MG TAB PO SCH (12:01)
[2025-05-03] MEDS: DOCUSATE SOD 100 MG CAP PO SCH (12:02)
--- NOTE | 2025-05-03 12:02 | DVH ---
RENAL ULTRASOUND CLINICAL HISTORY: bilateral hydronephrosis TECHNIQUE: Multiple grayscale ultrasound images were obtained through the kidneys and urinary bladder. COMPARISON: US KIDNEY on DOS: 04/20/25, US BILAT LOW EXT ART DUPLEX on DOS: 01/01/23, ECHO 2D MODE CARDIAC DOP on DOS: 12/30/22 FINDINGS: Right kidney: Measures 12.1 cm. Mild to moderate hydronephrosis. Left kidney: Measures 11.28 cm. [id number] hydronephrosis. Urinary bladder: Miller catheter decompresses the urinary bladder. IMPRESSION: 1. [id number]-izrrjkcu bilateral hydronephrosis.
--- NOTE | 2025-05-03 13:29 | DVHHP2 ---
History of Present Illness Reason for Visit: call back for prostate cancer History of Present Illness 64-year-old male with extensive past medical history including bladder neoplasm with suspected bone metastases, advanced chronic kidney disease (CKD stage IVV) now dialysis-dependent, bilateral hydronephrosis with possible obstructive uropathy, severe megaloblastic anemia, congestive heart failure with EF 14%, hypertension, history of pulmonary embolism on Eliquis, and HIV (diagnosed 1994, on antiretroviral therapy), presents to the ED after being called back to the hospital by Dr. Marie due to positive biopsy results concerning for prostate cancer. The patient was recently hospitalized and discharged on April 28, 2025, at which time he presented with gross hematuria and bleeding from his Miller catheter. During that admission, imaging demonstrated a bladder mass as well as sclerotic osseous lesions suspicious for metastatic disease. He underwent cystoscopy with bladder irrigation, required three units of PRBC transfusion, and was evaluated by Nephrology for hyperkalemia, requiring initiation of hyperkalemia protocol. He subsequently had a Marcelo catheter placed and was started on hemodialysis. Urology performed a repeat cystoscopy on April 22, 2025 for azotemia and worsening anemia, which revealed multifocal tumor masses involving the posterior bladder wall, right posterior wall, trigone, bladder neck, and prostate area, concerning for invasive bladder tumor versus prostate involvement. Tissue was sent for pathology, and the patient was discharged home with a Miller catheter and arranged outpatient dialysis at [facility], initially noted as Sunday/Sunday/Sunday schedule. He was instructed to follow up outpatient for biopsy results. The patient now returns after being notified that biopsy results were positive for prostate cancer. He presents with chest pain and shortness of breath, denies active gross hematuria at this time, and reports intermittent marijuana use. In the ED, labs showed hemoglobin 7.7 / hematocrit 22.0, creatinine 4.83, BUN 47, BNP 389, lactic acid 0.7, and troponin negative (0.7). UA showed blood without evidence of infection. Chest x-ray was unremarkable. Given his complex oncologic, renal, cardiac, and hematologic issues, the patient is admitted for further evaluation and management, with Urology (Dr. Marie) to be consulted. Past Medical History See HPI above Past Surgical History See HPI above Family History Reviewed, non-contributory to the management of this case. Past Social History The patient lives at home, denies , alcohol or illicit drugs abuse. Does smoke by history Review of Systems Constitutional: No: Fever, Chills, Sweats, Weakness, Malaise, Other Eyes: No: Pain, Vision change, Conjunctivae inflammation, Eyelid inflammation, Other, Redness ENT: No: Ear pain, Ear discharge, Nose pain, Nose discharge, Nose congestion, Mouth pain, Mouth swelling, Throat pain, Throat swelling, Other Respiratory: No: Cough, Dry, Shortness of breath, SOB with excertion, Wheezing, Hemoptysis, Pleuritic Pain, Sputum, Wheezing, Other Cardiovascular: No: Chest Pain, Palpitations, Orthopnea, Paroxysmal Noc. Dyspnea, Edema, Lt Headedness, Other Gastrointestinal: No: Nausea, Vomiting, Abdominal Pain, Diarrhea, Constipation, Melena, Hematochezia, Other Genitourinary: No Dysuria, No Frequency, No Incontinence, No Hematuria, No Retention, No Other Musculoskeletal: No: other, neck pain, shoulder pain, arm pain, back pain, hand pain, leg pain, foot pain Skin: No: Rash, Lesions, Jaundice, Bruising, Other Neurological: No: Weakness, Numbness, Incoordination, Change in speech, Confusion, Seizures, Other Allergies: Coded Allergies: NO KNOWN ALLERGIES (Unverified , 12/11/16) Medications Current Medications Medications Dose Ordered Sig/Minna Route Start Time Stop Time Status Last Admin Dose Admin Docusate Sodium 100 mg BID PO 05/03/25 10:00 05/03/25 12:02 100 MG Empaglifozin 10 mg DAILY PO 05/03/25 10:00 05/03/25 12:01 10 MG Atorvastatin Calcium 40 mg HS PO 05/03/25 22:00 Patient Own Medication 1 tab DAILY PO 05/03/25 10:00 05/03/25 10:00 1 TAB Metoprolol Succinate 25 mg DAILY PO 05/04/25 10:00 Furosemide 40 mg DAILY PO 05/03/25 10:00 05/03/25 12:01 40 MG Temazepam 15 mg QHSP PRN PO 05/03/25 09:45 Ondansetron HCl 4 mg Q4HP PRN IV 05/03/25 09:45 Docusate Sodium 100 mg BIDPRN PRN PO 05/03/25 09:45 Morphine Sulfate 2 mg Q4HPRN PRN IV 05/03/25 10:15 Nitroglycerin 0.4 mg Q5MINP PRN SL 05/03/25 09:45 Exam Vital Signs Vital Signs Date Time Temp Pulse Resp B/P (MAP) Pulse Ox O2 Delivery O2 Flow Rate FiO2 05/03/25 12:01 133/70 05/03/25 11:59 98.2 80 18 97 98.2 05/03/25 06:37 Room Air General Appearance: Alert, Oriented X3, Cooperative, No acute distress, Other (Thin in appearance) HEENT: Atraumatic, PERRLA, EOMI, Mucous membr. moist/pink Respiratory: Clear to auscultation, Normal air movement Cardiovascular: Regular rate, Normal S1, Normal S2, No murmurs Abdominal: Normal bowel sounds, Soft, No tenderness, No hepatospenomegaly, No masses, Other (Miller catheter in place) Extremities: No clubbing, No cyanosis, No edema, Normal pulses, No tenderness/swelling Skin: No rashes, No breakdown, No significant lesion Neuro: Other (Neuro nonfocal) Psych/Mental Status: Mental status NL, Mood NL, Other (In his wheelchair) Labs/Xrays Chest x-ray unremarkable I reviewed labs, imaging CT scan abdomen pelvis, EKG and all diagnostic studies on this patient from ED records and the medical chart Labs Test 05/03/25 09:59 05/03/25 05:42 05/03/25 05:32 Range/Units White Blood Count 4.0 L 4.4-10.8 10^3/uL Red Blood Count 2.40 L 4.5-5.90 10^6/uL Hemoglobin 8.1 L 13.5-17.5 g/dL Hematocrit 23.2 L 41.0-53.0 % Mean Corpuscular Volume 96.9 80.0-100.0 fL Mean Corpuscular Hemoglobin 33.8 H 28.0-32.0 pg Mean Corpuscular Hemoglobin Concent 34.9 32.0-36.0 g/dL Red Cell Distribution Width 15.3 H 11.8-14.3 % Platelet Count 209 140-450 10^3/uL Mean Platelet Volume 6.5 L 6.9-10.8 fL Neutrophils (%) (Auto) 62.2 37.0-80.0 % Lymphocytes (%) (Auto) 21.8 10.0-50.0 % Monocytes (%) (Auto) 12.3 H 0.0-12.0 % Eosinophils (%) (Auto) 2.7 0.0-7.0 % Basophils (%) (Auto) 1.0 0.0-2.0 % Neutrophils # (Auto) 2.5 1.6-8.6 10 ^3/uL Lymphocytes # (Auto) 0.9 0.4-5.4 10 ^3/uL Monocytes # (Auto) 0.5 0-1.3 10 ^3/uL Eosinophils # (Auto) 0.1 0-0.8 10 ^3/uL Basophils # (Auto) 0 0-0.2 10 ^3/uL Nucleated Red Blood Cells 0.1 % Urine Color Colorless Yellow Urine Clarity Turbid H Clear Urine pH 7.5 5.0-9.0 Urine Specific [place] 1.013 1.001-1.035 Urine Protein 3+ H Negative Urine Ketones Negative Negative Urine Blood 3+ H Negative /uL Urine Nitrite Negative Negative Urine Bilirubin Negative Negative Urine Urobilinogen Normal Negative mg/dL Urine Leukocyte Esterase 3+ Negative /uL Urine RBC 753 0 - 3 /hpf Urine Microscopic WBC 17 H 0-3 /HPF Urine Squamous Epithelial Cells None seen <5 /hpf Urine Bacteria Few H None Seen /hpf Urine Mucus Few None Seen Urine Yeast (Budding) Occasional None Seen /hpf Urine Sperm Present None Seen /hpf Urine Glucose 3+ H Normal mg/dL Prothrombin Time 11.0 9.3-11.8 sec Prothrombin Time INR 1.04 0.9-1.15 Activated Partial Thromboplast Time 25.1 24.5-34.5 SEC Sodium Level 141 136-145 mmol/L Potassium Level 5.1 3.5-5.1 mmol/L Chloride Level 103 98-107 mmol/L Carbon Dioxide Level 28 20-31 mmol/L Anion Gap 10 5-15 Blood Urea Nitrogen 47 H 9-23 mg/dL Creatinine 4.83 H 0.700-1.30 mg/dL Glomerular Filtration Rate Calc 13 >90 mL/min BUN/Creatinine Ratio 9.7 L 10.0-20.0 Serum Glucose 86 74-106 mg/dL Lactic Acid Level 0.7 0.4-2.0 mmol/L Calcium Level 8.8 8.7-10.4 mg/dL Phosphorus Level 4.0 2.4-5.1 mg/dL Magnesium Level 2.0 1.6-2.6 mg/dL Total Bilirubin 0.2 0.2-1.0 mg/dL Aspartate Amino Transferase (AST) 29 13-40 U/L Alanine Aminotransferase (ALT) 19 7-40 U/L Alkaline Phosphatase 152 H 46-116 U/L B-Type Natriuretic Peptide 359.69 0-100 pg/mL Total Protein 6.8 5.7-8.2 g/dL Albumin 3.8 3.2-4.8 g/dL SEPSIS Sepsis Screen Date sepsis recognized/suspect: May 03, 2025 Time Sepsis recognized/suspect: 410 Recent Procedure: No On Antibiotic Therapy: No Respiratory Rate >20: No Heart Rate >90: Yes Temp<36 C (96.8 F) or >38.3 C: No SBP <90 or MAP <65 mmHG: No New Acute Mental Status Change: No Is the patient on CPAP, BIPAP,: No Physician Orders Docusate Sodium Capsule (Colace Capsule) (05/03/25 10:00) Empagliflozin (Jardiance) (05/03/25 10:00) Atorvastatin (Lipitor) (05/03/25 22:00) (Nf) Heozvxlpjyn-Bsaodfxfloziu-Uqaf (Bik (05/03/25 10:00) Furosemide Tablet (Lasix Tablet) (05/03/25 10:00) Strict I & O QSHIFT (05/03/25 09:38) * Urology Consult (05/03/25 09:38) *[facility] (05/03/25 09:38) Packedcell-Noactive Bleeding (05/03/25 09:38) Pulse Ox Cont Per Day (05/03/25 09:38) Vital Signs .PER UNIT PROTOCOL (05/03/25 09:38) Administer Blood Products UD (05/03/25 09:38) Admit (05/03/25 09:38) Allergies (05/03/25 09:38) Code Status (05/03/25 09:38) Temazepam (Restoril) (05/03/25 09:45) Ondansetron Hcl (Zofran) (05/03/25 09:45) Docusate Sodium Capsule (Colace Capsule) (05/03/25 09:45) Complete Blood Count (05/04/25 04:00) Comprehensive Metabolic Panel (05/04/25 04:00) Condition: Stable (05/03/25 09:38) BRP (05/03/25 09:38) Sequential Compression Device (05/03/25 ) Nitroglycerin Sublingual (Ntrostat Subli (05/03/25 09:45) Stat Ekg For Chest Pain (05/03/25 09:38) Notify Of Changes From Base (05/03/25 09:38) Sample Wrapper For 24 Hours (05/03/25 09:38) Emergency Dysrhythmia Protocol (05/03/25 09:38) Rhythm Strips Once Every Shift (05/03/25 09:38) Oxygen By Nasal Cannula (05/03/25 09:38) Regular Diet (05/03/25 Lunch) Morphine Sulfate Injection (05/03/25 10:15) Metoprolol Xl Succinate (Toprol Xl) (05/04/25 10:00) Kidney (05/03/25 10:59) * Radiologist Consult (05/03/25 10:59) Nm Bone 3 Phase (05/03/25 11:01) Vitamin D, 25-Hydroxy (05/03/25 11:06) Urine Sodium (05/03/25 11:06) Urine Protein/Creatinine Ratio (05/03/25 ) Urine Creatinine (05/03/25 11:06) Urinalysis (05/03/25 11:06) Hepatitis C Antibody (05/03/25 11:06) Hepatitis B Surface Antigen (05/03/25 11:06) Parathyroid Hormone Intact (05/03/25 11:14) Npo After Midnight (05/03/25 11:17) Npo (Nothing By Mouth) Diet (05/04/25 Breakfast) Obtain Consent For: (05/03/25 11:17) Obtain Consent For Anesthesia (05/03/25 11:17) Vital Signs Date Time Temp Pulse Resp B/P (MAP) Pulse Ox O2 Delivery O2 Flow Rate FiO2 05/03/25 12:01 133/70 05/03/25 11:59 98.2 80 18 133/70 (91) 97 98.2 05/03/25 09:09 98.4 81 18 143/75 (97) 98 98.4 05/03/25 06:37 82 19 98 Room Air 05/03/25 06:34 98.1 82 19 137/68 (91) 98 98.1 Laboratory Tests Test 05/03/25 05:32 05/03/25 09:59 Lactic Acid Level 0.7 mmol/L (0.4-2.0) White Blood Count 3.4 10^3/uL (4.4-10.8) L 4.0 10^3/uL (4.4-10.8) L Medications Medications Dose Ordered Sig/Minna Route Start Time Stop Time Status Last Admin Dose Admin Aspirin 81 mg ONCE ONCE PO 05/03/25 07:00 05/03/25 07:01 DC 05/03/25 07:04 81 MG Docusate Sodium 100 mg BID PO 05/03/25 10:00 05/03/25 12:02 100 MG Empaglifozin 10 mg DAILY PO 05/03/25 10:00 05/03/25 12:01 10 MG Furosemide 40 mg DAILY PO 05/03/25 10:00 05/03/25 12:01 40 MG Patient Own Medication 1 tab DAILY PO 05/03/25 10:00 05/03/25 10:00 1 TAB Assessment/Plan Assessment/Plan 64-year-old male with newly confirmed prostate cancer in the setting of known bladder tumor, metastatic disease, dialysis-dependent renal failure, severe anemia, and heart failure, presenting after callback for positive biopsy results and associated chest pain and dyspnea requiring inpatient evaluation. acute Prostate cancer with bladder involvement Biopsy reported positive per Dr. Marie per pt recount History of multifocal tumor involving bladder wall, trigone, bladder neck, and prostate Consult Urology (Dr. Marie) for staging and treatment planning Coordinate Oncology consult once pathology reviewed ordered morphine as needed for pain acute Chest pain and shortness of breath Troponin negative Chest x-ray unremarkable Telemetry monitoring Low threshold for cardiology evaluation Bladder neoplasm with suspected metastatic disease Known bladder mass with sclerotic bone lesions Prior cystoscopies with irrigation and biopsy Monitor for recurrent hematuria Maintain Miller catheter, monitor output End-stage renal disease on hemodialysis Dialysis-dependent following recent hospitalization Continue scheduled hemodialysis Nephrology consult Dr Johns Monitor electrolytes and volume status Bilateral hydronephrosis / obstructive uropathy Likely secondary to bladder/prostate malignancy cont Miller in place Monitor renal function and urine output Severe anemia (multifactorial: malignancy, CKD, prior bleeding) Hgb 7.7 on admission History of recent transfusion (3 units PRBCs) Trend H&H Transfuse PRBCs as clinically indicated ordered 1 unit prbc to keep hh >8.0 chronic problems Congestive heart failure with severely reduced EF (14%) Monitor volume status closely, especially with dialysis History of pulmonary embolism on anticoagulation Continue Eliquis if no active bleeding HIV on antiretroviral therapy Diagnosed 1994/Continue home ART regimen/pt on bactrim for opportunistic infections Hypertension History of marijuana use Rack Pusher as appropriate Prostate cancer Bladder cancer Metastatic bone disease End-stage renal disease on dialysis Bilateral hydronephrosis Severe anemia Pulmonary embolism FEN / PPx Fluids: Fluid restriction per ESRD/CHF Electrolytes: Managed with dialysis; daily BMP Nutrition: Renal diet DVT Prophylaxis: Therapeutic anticoagulation with Eliquis (reassess daily) for restart GI Prophylaxis: PPI if indicated Disposition Admit to medicine service with telemetry. Coordinate care with Urology (Dr. Marie) consulted him, Nephrology for pending need for HD Plan discussed with: Patient My Orders Orders - MAY FLOR DNP Procedure Category Date Status Time Docusate Sodium PHA 05/03/25 In Process Capsule (Colace 10:00 Empagliflozin PHA 05/03/25 In Process (Jardiance) 10:00 Atorvastatin (Lipitor) PHA 05/03/25 In Process 22:00 (NF) PHA 05/03/25 In Process Vruikxpifht-Xvzyubqqjmtcp-Iaop 10:00 Furosemide Tablet PHA 05/03/25 In Process (Lasix Tablet) 10:00 Strict I & O ANDREY 05/03/25 In Process 09:38 * Urology Consult CONS 05/03/25 Transmitted 09:38 *[facility] CONS 05/03/25 Transmitted -[place] 09:38 Packedcell-Noactive BBK 05/03/25 Logged Bleeding 09:38 Pulse Ox Cont Per Day RT 05/03/25 Logged 09:38 Vital Signs ANDREY 05/03/25 In Process 09:38 Administer Blood ANDREY 05/03/25 In Process Products 09:38 Admit ADMIT 05/03/25 Transmitted 09:38 Allergies ANDREY 05/03/25 In Process 09:38 Code Status CODE 05/03/25 Transmitted 09:38 Temazepam (Restoril) PHA 05/03/25 In Process 09:45 Ondansetron Hcl PHA 05/03/25 In Process (Zofran) 09:45 Docusate Sodium PHA 05/03/25 In Process Capsule (Colace 09:45 Complete Blood Count LAB 05/04/25 Verified 04:00 Comprehensive LAB 05/04/25 Verified Metabolic Panel 04:00 Condition: Stable ANDREY 05/03/25 In Process 09:38 BRP ANDREY 05/03/25 In Process 09:38 Sequential ANDREY 05/03/25 In Process Compression Device Nitroglycerin PHA 05/03/25 In Process Sublingual (Ntrostat 09:45 Stat Ekg For Chest ANDREY 05/03/25 In Process Pain 09:38 Notify Of Changes ANDREY 05/03/25 In Process From Base 09:38 Sample Wrapper For ANDREY 05/03/25 In Process 24 Hours 09:38 Emergency Dysrhythmia [facility] 05/03/25 In Process Protocol 09:38 Rhythm Strips Once ANDREY 05/03/25 In Process Every Shift 09:38 Oxygen By Nasal RT 05/03/25 Transmitted Cannula 09:38 Regular Diet DIET 05/03/25 Transmitted Lunch Morphine Sulfate PHA 05/03/25 In Process Injection 10:15 Metoprolol Xl PHA 05/04/25 In Process Succinate (Toprol Xl) 10:00 Parathyroid Hormone LAB 05/03/25 In Process Intact 11:14 Date of Service: May 03, 2025 Billing Provider: MAY FLOR DNP Common Visit Codes: [id number] INP/OBS CARE (HIGH) MAY FLOR DNP May 03, 2025 13:29
[2025-05-03 16:12] LABS: Protein, Urine 758.5 mg/dL (1-14)
[2025-05-03] MEDS ORDERED: ATORVASTATIN 20 MG TAB PO SCH (22:00)
[2025-05-04] MEDS ORDERED: METOPROLOL SUCCINATE XL 50 MG TAB PO SCH (10:00)
[2025-05-04 12:17] LABS: Hepatitis B Surface Antigen Negative (Negative)
[2025-05-04 12:41] LABS: Hepatitis C Antibody Negative (Negative)
--- NOTE | 2025-05-04 17:32 | DVHNC2 ---
Procedure - OPERATIVE REPORT Pre-op. Diagnosis: Prostate cancer, metastatic Bilateral hydronephrosis/obstructive uropathy BPH/LUTs/Urinary retention Post-op. Diagnosis: Same as pre-op diagnosis Operation: Bilateral orchiectomy Cystoscopy with bilateral retrograde pyelogram and bilateral ureteral stents placement Urolift - Prostate Implant Anesthesia: General + Local Indications: Patient with metastatic prostate cancer with PSA>500 and bladder involvement causing bilateral hydronephrosis. He also has urinary outlet obstruction from enlarged prostate gland and opted to undergo Urolift implants. Bilateral orchiectomy is recommended to urgently lower his PSA and control further metastasis of his prostate cancer. Bilateral hydronephrosis will be managed by bilateral ureteral stents. All questions were encouraged and answered. He elected to proceed. INFORMED CONSENT: Indications, risks, complications, alternatives and benefits of bilateral simple orchiectomy, Urolift implantation and bilateral ureteral stents placements are discussed with patient and family. All questions were encouraged and answered. The patient is aware of specific risks/complications including but not limited to infection, bleeding, wound dehiscence, persistent pain requiring additional managements and recurrence of conditions. Proper consent to proceed is obtained. Patient suffers from obstructive voiding dysfunction. Treatment options were discussed including ongoing therapy with pharmaceutical such as alpha blocking agents (Flomax/UroXatral/Rapaflow), or Prostate shrinking agents (proscar/Avodart); In-office prostate therapies (TUMT/Indigo Laser/TUNA); or Outpatient procedures such as Green light laser photovaporization/Enucleation/TURP) as well urolift. Corresponding advantages and disadvantages were also discussed. Questions were addressed. Details of Procedure: PROCEDURE IN DETAIL: Patient is taken to Operating suite and given appropriate anesthesia. After shaving, prepping and draping the patient in the supine position, vertical midline scrotal incision is made with knife. Subsequent tissues are taken down with Bovie to the level of tunica vaginalis. Right testicle is exposed and spermatic cord ligation and division is performed in 2 bundles using 2-0 silk sutures. Then, left testicle is exposed and identical maneuver is performed. Specimens are sent to pathology. Spermatic cord stumps are placed in the scrotum in normal position. Proper layer closures are performed with kevin drain placement. Skin was closed with 3-0 Chromic suture. Patient tolerated the procedure well. Next, patient was placed in lithotomy position with area of genitalia reprepped and draped. Cystoscope was assembled and accessed the bladder. Right ureteral orifice was cannulated with 6F open ended catheter. Retrograde pyelogram showed tortuosity of both ureters, more severe on the right side. Sensor guidewire and 6F x [address] ureteral stent was placed on the right with significant difficult y. Proper positioning was verified per fluoroscopy. The left ureteral access with guidewire and placement of 6Fx [address] stent was completed. Patient tolerated the procedure well. Nex, the 20 F access sheath was introduced into the bladder under direct vision. Bladder was emptied and the Urolift device was introduced. Four implants were permanently placed at the 10 a& 2 O'clock positions near the bladder neck and apical tissue to lift the kissing lateral lobes out of the way and to create a channel in the prostatic urethra and the urethral bladder neck opening. The implants were delivered through a needle that comes out of the Urolift delivery device and into the prostate. Due to extensive bilateral ureteral obstructions and azotmia, torrez catheter was replaced. Patient tolerated the procedure well. He was awaken and taken to RR in stable condition. All instrument counts were correct at the end of the procedure. Specimens: Pathology: Testicles, bilateral Complications: None Findings: Bone Scan pending JOSE PEREZ MD May 04, 2025 17:32
== END 2025-05-03 14:46 | disposition left against medical advice (07) | DRG 500 ==
LOC: ER 04:00 → OVERFLOW 09:38
PROVIDERS: ADMIT Nurse Practitioner Family; ATTEND Nurse Practitioner Family
DX: C61 Malignant neoplasm of prostate (principal); I13.2 Hypertensive heart and chronic kidney disease with heart failure and with stage 5 chronic kidney disease, or end stage renal disease; C79.51 Secondary malignant neoplasm of bone; D63.1 Anemia in chronic kidney disease; N13.1 Hydronephrosis with ureteral stricture, not elsewhere classified; I20.0 Unstable angina; N18.6 End stage renal disease; Z99.2 Dependence on renal dialysis; N17.9 Acute kidney failure, unspecified; C67.9 Malignant neoplasm of bladder, unspecified; Z79.01 Long term (current) use of anticoagulants; Z53.29 Procedure and treatment not carried out because of patient's decision for other reasons; I50.9 Heart failure, unspecified; F17.210 Nicotine dependence, cigarettes, uncomplicated; N40.1 Benign prostatic hyperplasia with lower urinary tract symptoms; R33.8 Other retention of urine; Z86.711 Personal history of pulmonary embolism; Z82.49 Family history of ischemic heart disease and other diseases of the circulatory system; Z83.3 Family history of diabetes mellitus; Z79.899 Other long term (current) drug therapy
CPT/HCPCS: 36415; 71045; 76775; 80053; 81001; 82306; 82570; 83605; 83735; 83880; 83970; 84100; 84156; 84300; 85025; 85610; 85730; 86803; 86850; 86900; 86901; 87040; 87340; 99152; G0378